=== PATIENT | male | born 1960 | race Caucasian/White ===

== ENCOUNTER 2016-12-15 09:44 | Day surgery (SDC) | payer BC ==
[2016-12-14 10:14] VITALS: BMI 24.0
[~2016-12-15 09:44] MED LIST: LACTATED RINGERS 1,000 ML IV SCH; LIDOCAINE 1% 20 ML VIAL (10MG/ML) FOR IV START INTRADERMA PRN
[2016-12-15 10:40] VITALS: TEMP 97
[2016-12-15] MEDS ORDERED: PROPOFOL 10 MG/ML 20 ML VIAL IV ONE (12:23)
--- NOTE | 2016-12-15 12:55 | P.PCN ---
Date of Procedure: 12/15/16 Preoperative Diagnosis: Postoperative Diagnosis: Procedure(s) Performed: Procedure: Colonoscopy and polypectomy. Preoperative diagnosis: Screening for neoplasia. Postoperative diagnosis: Small/diminutive polyp in the distal sigmoid snared but no large polyps or cancer. Preparation: HalfLytely prep. Sedation: Was provided by anesthesia. Brief clinical history: The patient is a 56-year-old male who is scheduled for this evaluation for screening for neoplasia age being his risk factor. He has no abdominal complaints, bleeding or anemia. No family history of colon cancer. This would be his first colonoscopy. Procedure: With the patient on his left lateral decubitus position and after informed consent and adequate sedation, the perianal area was inspected and it did not show any fissures or fistulas. There were no masses felt on digital rectal examination. The Olympus CFQ 160L video colonoscope was then inserted in the rectum in the usual fashion and advanced to the cecum. The mucosa appeared healthy. There was a small/diminutive polyp in the distal sigmoid which I snared and retrieved by suction, but there were no large polyps or cancer. No obvious diverticular disease or other pathology. I retroflexed the endoscope in the rectum before the endoscope was withdrawn. The patient tolerated the procedure well. Plan: The patient was reassured. He will follow up with you as planned, and I recommended a repeat exam in 5 years. Implants: Indications for Procedure: Operative Findings: Description of Procedure:
[2016-12-15 13:03] VITALS: BP 129/70; PULSE 57; RESP 18
== END 2016-12-15 13:26 | disposition home or self-care (01) ==
LOC: ORWHC2ENDO 09:44
DX: Z12.11 Encounter for screening for malignant neoplasm of colon (principal); K63.5 Polyp of colon; F17.200 Nicotine dependence, unspecified, uncomplicated
CPT/HCPCS: 88305; 45385; J2704

== ENCOUNTER 2021-10-15 18:43 | Emergency (ER) | payer BC, OTHER ==
[2021-10-15 18:48] VITALS: TEMP 98.4
[2021-10-15 20:48] VITALS: RESP 18
[2021-10-15] MEDS ORDERED: PROPARACAINE 0.5% OPHTH DROPS 15 ML BTL RIGHT EYE STA (20:52)
[2021-10-15] MEDS ORDERED: FLUORESCEIN STRIPS 1 MG STRIP BOTH EYES ONE (20:52)
[2021-10-15] MEDS ORDERED: MOXIFLOXACIN HCL 0.5% DROPS 3 ML BTL RIGHT EYE ONE (21:16)
[2021-10-15] MEDS ORDERED: lisinopriL 5 MG TAB PO STA (21:18)
--- NOTE | 2021-10-15 21:22 | ED ---
Eye Problem HPI - General Chief complaint: Eye Problems Stated complaint: poss foreign body rt eye, elevated BP Time Seen by Provider: 10/15/21 20:51 Source: patient Mode of arrival: ambulatory Limitations: no limitations - History of Present Illness Initial comments: This is a pleasant 61-year-old male with a history of hypertension. Patient presents to the emergency department complaining of right I discharge and irritation. Patient states he had problems with the eye about 2 weeks ago and it seemed to clear up. However about 48 hours ago he started getting discharged from the right eye again. States he has some discomfort and foreign body sensation when he has his eye closed. Patient has no other symptomology. He was seen at [facility] and [facility] and sent here for evaluation. Patient has a known history of hypertension which she is not treating. No headache, no fever or chills, no sore throat or difficulty with speech, no neck pain, no chest pain or shortness of breath, no abdominal pain, no nausea or vomiting, no changes in urination or bowel movements, no numbness or tingling, no extremity pain, no skin rashes or lesions. MD chief complaint: eye redness - Related Data Previous Rx's Medication Instructions Recorded lisinopriL [Zestril] 5 mg PO DAILY #30 tab 10/15/21 Allergies Allergy/AdvReac Type Severity Reaction Status Date / Time No Known Allergies Allergy Verified 12/15/16 10:33 Review of Systems ROS Statement: Those systems with pertinent positive or pertinent negative responses have been documented in the HPI. ROS Other: All systems not noted in ROS Statement are negative. Past Medical History Past Medical History: Hypertension, Osteoarthritis (OA) History of Any Multi-Drug Resistant Organisms: None Reported Past Surgical History: Hernia Repair, Tonsillectomy Past Anesthesia/Blood Transfusion Reactions: No Reported Reaction Past Psychological History: No Psychological Hx Reported Smoking Status: Current every day smoker Past Alcohol Use History: None Reported Past Drug Use History: None Reported - Past Family History Mother Family Medical History: No Reported History General Exam - General Exam Comments Initial Comments: Patient found be hypertensive. Does not appear to be in any distress. Limitations: no limitations General appearance: alert, in no apparent distress Head exam: Present: atraumatic, normocephalic, normal inspection Eye exam: Present: PERRL, EOMI, conjunctival injection (Right eye), other (Evidence of chemosis with conjunctival injection involving the right eye. No definitive purulent drainage.). Absent: normal appearance (Patient does have what appears to be a superficial corneal ulceration developing to the inferior aspect of the cornea.), scleral icterus, periorbital swelling Pupils: Present: normal accommodation, other (No foreign body noted on slit lamp examination with staining. Eyelids were everted.) ENT exam: Present: normal exam, mucous membranes moist Neck exam: Present: normal inspection. Absent: tenderness, meningismus, lymphadenopathy Respiratory exam: Present: normal lung sounds bilaterally. Absent: respiratory distress, wheezes, rales, rhonchi, stridor Cardiovascular Exam: Present: regular rate, normal rhythm, normal heart sounds. Absent: systolic murmur, diastolic murmur, rubs, gallop, clicks GI/Abdominal exam: Present: soft, normal bowel sounds. Absent: distended, tenderness, guarding, rebound, rigid Extremities exam: Present: normal inspection, full ROM, normal capillary refill. Absent: tenderness, pedal edema, joint swelling, calf tenderness Back exam: Present: normal inspection Neurological exam: Present: alert, oriented X3, CN II-XII intact Psychiatric exam: Present: normal affect, normal mood Skin exam: Present: warm, dry, intact, normal color. Absent: rash Course Vital Signs 10/15/21 10/15/21 18:45 20:47 Temperature 98.4 F Pulse Rate 78 76 Respiratory 20 18 Rate Blood Pressure 196/88 196/104 O2 Sat by Pulse 96 98 Oximetry Medical Decision Making - Medical Decision Making We will consult ophthalmology. I'm going to give the patient a prescription for lisinopril as he has known hypertension that he is trying to treat with herbal remedies. Patient will need to follow-up with her primary care physician regarding this. Note that he is asymptomatic regarding this. No chest pain. No problems with urination. No headache. No neurologic impairment. Case discussed with on-call ophthalmology who will come to the ER to evaluate the patient. Patient started on Vigamox The case was discussed in detail with ED attending physician. Presentation, findings, treatment plan discussed in detail. Patient was seen and evaluated by on-call ophthalmology, Dr. Givens who wants to see the patient again tomorrow morning. Frequent installation of athletic eyedrops as directed and the patient discharge instructions. Disposition Clinical Impression: Conjunctivitis of right eye, Uncontrolled hypertension, Corneal ulcer of right eye Disposition: HOME SELF-CARE Condition: Good Instructions (If sedation given, give patient instructions): Corneal Ulcer (ED), Hypertension (ED), How to Stop Smoking (ED) Additional Instructions: Put in the eye antibiotic drops 1 drop every 15 minutes 4, then every 30 minutes for the next 6 hours. Then every hour until reassessment tomorrow morning. Make sure you go to the pharmacy [facility] as planned tomorrow morning without fail. Is patient prescribed a controlled substance at d/c from ED?: No Referrals: Hansel Givens MD [STAFF PHYSICIAN] - 10/16/21 9:00 am Time of Disposition: 22:07
[2021-10-15] MEDS ORDERED: ARTIFICIAL TEARS-HYPROMELLOSE DROPS 15 ML BTL RIGHT EYE STA (21:26)
[2021-10-15 22:35] VITALS: BP 160/90; PULSE 82
--- NOTE | 2021-10-15 22:35 | P.CON ---
Consult Note - . Consult date: 10/15/21 Assessment/Plan:: 61 y/o male with 2 week HX of eye pain on the right. 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 However, the eye has become more irritated and has a mildly purulent discharge. Acuity per nursing Ext: marked entropion noted on right, unremarkable on left Conj: 3+ injection and chemosis, right, unremarkable OS Cornea: Grade1 clarity on right with 1.5 mm cystic lesion inferior limbus, without breakdown or infiltrate, clear left AC: rare cell, 2+ flare, right, normal OS Iris: mild miosis, right, none left A: probable simple conjunctivitis aggravated with entropion, and iritis P: will treat as potential ulceration and aggressively use topical moxifloxacin q x 6 then reduce to q 1. Will see in AM at office. Use tears to offset the discomfort. Avoid squeezing the eyelids tightly together.
== END 2021-10-15 22:35 | disposition home or self-care (01) ==
LOC: EC 18:43
DX: H16.001 Unspecified corneal ulcer, right eye (principal); H10.9 Unspecified conjunctivitis; I10 Essential (primary) hypertension; F17.200 Nicotine dependence, unspecified, uncomplicated
CPT/HCPCS: 99283

== ENCOUNTER 2021-11-03 07:28 | Day surgery (SDC) | payer OTHER ==
[2021-11-02 08:58] VITALS: BMI 23.3
[~2021-11-03 07:28] MED LIST changes: +LIDOCAINE 1% (10MG/ML) FOR IV START INTRADERMA PRN; -LIDOCAINE 1% 20 ML VIAL (10MG/ML) FOR IV START INTRADERMA PRN; +MOXIFLOXACIN HCL 0.5% DROPS 3 ML BTL OP PRN; +TETRACAINE 0.5% OPHTH (PF) DROPS 4 ML BTL OP PRN; +TIMOLOL 0.5% OPHTH DROPS 5 ML BTL OP PRN
[2021-11-03] MEDS: CYCLOPENTOLATE 1% OPHTH SOLN 2 ML BTL OP PRN ×3 (08:03→08:15)
[2021-11-03] MEDS: PHENYLEPHRINE 2.5% OPHTH DRP 2ML OP PRN ×3 (08:06→08:18)
[2021-11-03 08:10] VITALS: TEMP 97.5
[2021-11-03] MEDS ORDERED: HYALURONATE SODIUM INTRAOCULAR 1 EACH SYRINGE (12MG/ML) INTRAOCULA ONE (08:40)
[2021-11-03] MEDS ORDERED: BALANCED SALT IRRIG SOLN COMB2 15 ML IRRIG.SOLN INTRAOCULA ONE ×2 (08:41→09:22)
[2021-11-03] MEDS ORDERED: LIDOCAINE 1% (PF) 10MG/ML VIAL MISCELLANE ONE ×2 (08:41→09:22)
[2021-11-03] MEDS ORDERED: MOXIFLOXACIN HCL 0.5% DROPS 3 ML BTL RIGHT EYE ONE ×2 (08:42→09:23)
[2021-11-03] MEDS ORDERED: TIMOLOL 0.5% OPHTH SOLN (PF) 0.2 ML DROPERETTE RIGHT EYE ONE ×3 (08:42→09:44)
[2021-11-03] MEDS ORDERED: EPINEPHrine (PF) 0.3 ML in BALANCED SALT IRRIG SOLN COMB2 500 ML IRRIGATION ONE ×4 (08:43)
[2021-11-03] MEDS ORDERED: DUOVISC KIT (GREEN BOX) INTRAOCULA ONE ×2 (09:01→09:23)
[2021-11-03] MEDS ORDERED: MIDAZOLAM 2 MG/2 ML VIAL ONE (09:02)
[2021-11-03] MEDS ORDERED: fentaNYL (PF) 50 MCG/ML 2 ML AMP ONE (09:02)
--- NOTE | 2021-11-03 09:47 | P.OP ---
Date of Procedure: 11/03/21 Preoperative Diagnosis: NS NAG POAG posterior synechiae Postoperative Diagnosis: same Procedure(s) Performed: PIOL, goniotomy & synechiolysis Implants: MX60E 28.50 Anesthesia: MAC Surgeon: Hansel Givens Pathology: none sent Condition: stable Disposition: same day Indications for Procedure: uncontrolled glaucoma, narrow anterior chamber angle, blurry vision Operative Findings: no complications
[2021-11-03 09:57] VITALS: RESP 16
[2021-11-03 10:29] VITALS: BP 146/86; PULSE 59
--- NOTE | 2021-11-03 20:03 | OP ---
OPERATIVE REPORT DATE OF SURGERY: 11/03/2021. PROCEDURE: Phacoemulsification of cataract and intraocular lens implant of the right eye with goniotomy of the right eye and release of posterior synechiae of the right eye. PREOPERATIVE DIAGNOSES: 1. Nuclear sclerosis. 2. Narrow-angle glaucoma. 3. Primary open-angle glaucoma, mild stage. 4. Posterior synechiae of the right eye. POSTOPERATIVE DIAGNOSES: 1. Nuclear sclerosis. 2. Narrow-angle glaucoma. 3. Primary open-angle glaucoma, mild stage. 4. Posterior synechiae of the right eye. SURGEON: Dr. Hansel Givens. ANESTHESIA: Topical. ESTIMATED BLOOD LOSS: Less than 5 mL. SPECIMEN TAKEN: None. NARRATIVE: After obtaining the appropriate consent, the patient was brought to the operating room. There he was placed under cardiac monitoring, prepped and draped in the usual sterile manner. He was approached from his right temporal side, and at the 11 o'clock position an MVR blade was used to create a paracentesis port. Through this opening 1% Xylocaine MPF with 1:1000 epinephrine MPF and balanced salt solution in a ratio of 1:2:1 was instilled into the anterior chamber. This was then followed by stabilization of the anterior chamber with Viscoat. At the 9 o'clock position a 2.5 mm keratome was used to create a self-sealing corneal flap incision. The patient was then asked to rotate his head approximately 45 degrees to his left and maintain a gaze in that general direction. A gonio prism was placed on the patient's eye and a [place] Dual Blade goniotomy knife was advanced across the anterior chamber. Using an inside-out technique, approximately 4 hours of trabecular meshwork was removed from the nasal side of the patient's eye. The patient was then returned to the normal supine position and there was a little release of the pupil from the anterior lens, and a Cyclodialysis Spatula was then placed in the anterior chamber and released all of the posterior synechiae, which was accounting for approximately 90% of the iris to lens scar tissue. The pupil did not dilate appreciably, and therefore a Malyugin Ring 6.25 in size was then placed on the patient's iris to gain adequate access to the lens. Once the iris was stabilized, a cystotome was advanced across the anterior chamber and into the lens to begin a continuous tear capsulorrhexis, which was then completed using the Utrata forceps. Hydrodissection and hydrodelineation of the lens were accomplished with balanced salt solution. Phacoemulsification of the lens utilizing phaco chop was accomplished in 13.96 seconds at 17% power. Additional medication mix was then instilled into the anterior chamber. This was followed by removal of the remaining cortical material under irrigation and aspiration as well as careful polishing of the posterior capsule in capsule vacuum mode. Provisc was then used to stabilize the capsular bag, and a Bausch and Lomb MX 60E 28.5 diopter posterior chamber intraocular lens was then placed in the capsular bag without difficulty. Confirmation that the lens haptics were within the bag was confirmed and the Malyugin pupil expansion ring was then removed from the anterior chamber. The remaining viscoelastic was then removed from both the anterior chamber as well as behind the posterior intraocular lens. The eye was then brought to slightly above normal intraocular pressure with balanced salt solution through the paracentesis after hydrating the temporal incision with balanced salt solution. He then received two drops of 0.5% Timolol followed by moxifloxacin, was then lightly patched and shielded in the usual manner. There were no complications from the procedure. He tolerated the procedure well and was returned to Outpatient Recovery in good condition. JENNA / IJN: [id number] / RAFITA
== END 2021-11-03 10:47 | disposition home or self-care (01) ==
LOC: OR 07:28
PROVIDERS: ATTEND Ophthalmology
DX: H25.11 Age-related nuclear cataract, right eye (principal); H40.2 Primary angle-closure glaucoma; H21.541 Posterior synechiae (iris), right eye; I10 Essential (primary) hypertension; F17.210 Nicotine dependence, cigarettes, uncomplicated; Z79.899 Other long term (current) drug therapy; Z98.890 Other specified postprocedural states
CPT/HCPCS: 66982; 65820; C1780; J2250; J0171; J3010; J2001

== ENCOUNTER 2021-12-01 06:19 | Day surgery (SDC) | payer OTHER ==
[2021-11-30 13:03] VITALS: BMI 23.1
[~2021-12-01 06:19] MED LIST changes: +CYCLOPENTOLATE 1% OPHTH SOLN 2 ML BTL OP PRN; -LACTATED RINGERS 1,000 ML IV SCH; -LIDOCAINE 1% (10MG/ML) FOR IV START INTRADERMA PRN; +PHENYLEPHRINE 2.5% OPHTH DRP 2ML OP PRN
[2021-12-01] MEDS ORDERED: LACTATED RINGERS 1,000 ML IV SCH (06:52)
[2021-12-01] MEDS ORDERED: LIDOCAINE 1% (10MG/ML) FOR IV START INTRADERMA PRN (06:52)
[2021-12-01] MEDS ORDERED: LIDOCAINE 1% (10MG/ML) FOR IV START INTRADERMA ONE (07:13)
[2021-12-01] MEDS ORDERED: LACTATED RINGERS 1,000 ML IV ONE (07:13)
[2021-12-01] MEDS ORDERED: LABETALOL 5 MG/ML VIAL MDV IVP ONE (07:23)
[2021-12-01 07:40] VITALS: TEMP 97.4
[2021-12-01] MEDS ORDERED: MIDAZOLAM 2 MG/2 ML VIAL ONE (07:47)
[2021-12-01] MEDS ORDERED: fentaNYL (PF) 50 MCG/ML 2 ML AMP ONE (07:47)
[2021-12-01] MEDS ORDERED: EPINEPHrine (PF) 0.3 ML in BALANCED SALT IRRIG SOLN COMB2 500 ML IRRIGATION ONE (08:02)
[2021-12-01] MEDS ORDERED: DUOVISC KIT (GREEN BOX) INTRAOCULA ONE (08:03)
[2021-12-01] MEDS ORDERED: BALANCED SALT IRRIG SOLN COMB2 15 ML IRRIG.SOLN INTRAOCULA ONE (08:03)
[2021-12-01] MEDS ORDERED: TRYPAN BLUE 0.06% SYRINGE 0.5 ML SYRINGE MISCELLANE ONE (08:04)
[2021-12-01] MEDS ORDERED: LIDOCAINE 1% (PF) 10MG/ML VIAL MISCELLANE ONE (08:04)
--- NOTE | 2021-12-01 08:28 | P.OP ---
Date of Procedure: 12/01/21 Preoperative Diagnosis: NS & POAG moderate Postoperative Diagnosis: same Procedure(s) Performed: PIOL< OS Implants: MX60E 28.00 Anesthesia: MAC Surgeon: Hansel Givens Pathology: none sent Condition: stable Disposition: same day Indications for Procedure: blurry visin and poor glaucoma control Operative Findings: no complications
[2021-12-01 08:33] VITALS: PULSE 60; RESP 16
[2021-12-01 08:46] VITALS: BP 169/85
--- NOTE | 2021-12-02 11:09 | OP ---
OPERATIVE REPORT DATE OF SURGERY: December 01, 2021. PROCEDURES: Phacoemulsification of cataract and intraocular lens implant of the left eye with goniotomy. PREOPERATIVE DIAGNOSES: Nuclear sclerosis and primary open-angle glaucoma, moderate. POSTOPERATIVE DIAGNOSES: Nuclear sclerosis and primary open-angle glaucoma, moderate. SURGEON: Dr. Hansel Givens. ANESTHESIA: Topical. ESTIMATED BLOOD LOSS: Less than 5 mL. SPECIMEN TAKEN: None. NARRATIVE: After obtaining the appropriate consent, the patient was brought to the operating room. There he was placed under cardiac monitoring, prepped and draped in the usual sterile manner. He was approached from his left temporal side. At the 5 o'clock position an MVR blade was used to create a paracentesis port. Through this opening 1% Xylocaine MPF 50:50 mix with balanced salt solution was injected into the anterior chamber. This was followed by Trypan blue which was left in place for 1 minute. This was irrigated away with balanced salt solution and the anterior chamber was then stabilized with Viscoat. At the 3 o'clock position, a 2.5 mm keratome was used to create a self-sealing corneal flap incision. The patient was then asked to rotate his head approximately 45 degrees to his right, maintain a gaze in that general direction. A gonio prism was placed on the patient's eye and using a [employer] dual blade goniotomy knife using a deborah and meet method, the nasal trabecular meshwork for approximately 5 clock hours was removed on the nasal side of the patient's eye. He was then returned to the normal supine position. Again through the temporal incision, a cystotome was introduced to begin a continuous tear capsulorrhexis which was then completed using the Utrata forceps. Hydrodissection and hydrodelineation of the lens was accomplished with balanced salt solution. Phacoemulsification of the lens utilizing phaco chop was accomplished in 9.78 seconds at 23% power. Additional Xylocaine MPF was instilled into the eye. This was followed by removal of the remaining cortical material within the capsular bag along with careful polishing of the posterior capsule in the capsule vacuum mode. Provisc was then used to stabilize the capsular bag and a Bausch and Lomb MX 60 E 28.0 diopter posterior chamber intraocular lens was then inserted into the capsular bag without difficulty. The remaining viscoelastic was removed from in and around the intraocular lens as well as the anterior chamber. The eye was then brought to normal intraocular pressure through the paracentesis port and the wounds were confirmed watertight. He then received 2 drops of 0.5% timolol followed by 2 drops of moxifloxacin. He was then lightly patched and shielded in the usual manner. There were no complications from the procedure. He tolerated the procedure well and was returned to outpatient recovery in good condition. MMODL / IJN: [id number] /
== END 2021-12-01 09:05 | disposition home or self-care (01) ==
LOC: OR 06:19
PROVIDERS: ATTEND Ophthalmology
DX: H25.12 Age-related nuclear cataract, left eye (principal); H40.1132 Primary open-angle glaucoma, bilateral, moderate stage; H10.33 Unspecified acute conjunctivitis, bilateral; H43.813 Vitreous degeneration, bilateral; H02.002 Unspecified entropion of right lower eyelid; H02.005 Unspecified entropion of left lower eyelid; H52.03 Hypermetropia, bilateral; H52.4 Presbyopia; Z96.1 Presence of intraocular lens; Z98.41 Cataract extraction status, right eye; Z79.899 Other long term (current) drug therapy; I10 Essential (primary) hypertension; I77.6 Arteritis, unspecified; Z98.890 Other specified postprocedural states
CPT/HCPCS: 66984; 65820; C1780; J2250; J0171; J3010; J2001

== ENCOUNTER 2022-10-20 05:23 | Inpatient (IN) | payer OTHER ==
--- NOTE | 2022-10-20 06:14 | XR ---
EXAMINATION TYPE: XR chest 2V DATE OF EXAM: 10/20/2022 COMPARISON: NONE HISTORY: Shortness of breath TECHNIQUE: Frontal and lateral views of the chest are obtained. FINDINGS: There is masslike consolidation involving the inferior lateral left upper lobe. No pleura l effusion or pneumothorax seen bilaterally The cardiac silhouette size is mildly enlarged. The oss eous structures are intact. IMPRESSION: Mild cardiomegaly with peripheral left upper lobe masslike consolidation. Correlate for pneumonia. Follow-up advised to rule out underlying mass or neoplasm.
[2022-10-20 06:24] LABS: HCT 42.7 % (39.0-53.0); MCH 29.1 pg (25.0-35.0); MCHC 32.9 g/dL (31.0-37.0); MCV 88.4 fL (80.0-100.0); Mean Platelet Volume 8.3; Platelet Count 230 k/uL (150-450); RBC 4.82 m/uL (4.30-5.90); RDW 13.5 % (11.5-15.5); WBC 5.2 k/uL (3.8-10.6)
--- NOTE | 2022-10-20 06:24 | ED ---
General Adult HPI - General Source: patient, RN notes reviewed, old records reviewed Mode of arrival: ambulatory <Armen Vivar - Last Filed: 10/20/22 06:57> <Mk Jean - Last Filed: 10/20/22 07:54> - General Chief complaint: Shortness of Breath Stated complaint: Shortness of Breath Time Seen by Provider: 10/20/22 05:29 - History of Present Illness Initial comments: 62-year-old male presenting for left lateral chest pain worse with deep inspiration. Symptoms began within the past 24 hours. He has mild associated dyspnea. No central chest pain. Patient is a current smoker. He denies fever. Denies cough. (Armen Vivar) - Related Data Home Medications Medication Instructions Recorded Confirmed lisinopriL [Zestril] 5 mg PO DAILY 11/30/21 11/30/21 Allergies Allergy/AdvReac Type Severity Reaction Status Date / Time No Known Allergies Allergy Verified 11/30/21 12:58 Review of Systems ROS Other: All systems not noted in ROS Statement are negative. <Armen Vivar - Last Filed: 10/20/22 06:57> ROS Other: All systems not noted in ROS Statement are negative. <Mk Jean - Last Filed: 10/20/22 07:54> ROS Statement: Those systems with pertinent positive or pertinent negative responses have been documented in the HPI. Past Medical History Past Medical History: Hypertension, Osteoarthritis (OA) History of Any Multi-Drug Resistant Organisms: None Reported Past Surgical History: Hernia Repair, Tonsillectomy Additional Past Surgical History / Comment(s): COLONOSCOPY , rt cataract 11/03/21 Past Anesthesia/Blood Transfusion Reactions: No Reported Reaction Past Psychological History: No Psychological Hx Reported Smoking Status: Current every day smoker Past Alcohol Use History: None Reported Past Drug Use History: None Reported - Past Family History Mother Family Medical History: No Reported History <Armen Vivar - Last Filed: 10/20/22 06:57> General Exam General appearance: alert, in no apparent distress Head exam: Present: atraumatic, normocephalic Eye exam: Present: normal appearance, PERRL ENT exam: Present: normal exam Neck exam: Present: normal inspection. Absent: tenderness, meningismus Respiratory exam: Present: decreased breath sounds. Absent: respiratory distress, chest wall tenderness Cardiovascular Exam: Present: normal rhythm, bradycardia GI/Abdominal exam: Present: soft. Absent: distended, tenderness, guarding Extremities exam: Present: normal inspection, normal capillary refill. Absent: calf tenderness Neurological exam: Present: alert, oriented X3, CN II-XII intact. Absent: motor sensory deficit Psychiatric exam: Present: normal affect, normal mood Skin exam: Present: warm, dry, intact. Absent: cyanosis, diaphoretic <Armen Vivar - Last Filed: 10/20/22 06:57> Course <Armen Vivar - Last Filed: 10/20/22 06:57> Vital Signs 10/20/22 10/20/22 05:27 05:51 Temperature 97.6 F Pulse Rate 46 L 87 Respiratory 18 22 Rate Blood Pressure 120/79 O2 Sat by Pulse 98 98 Oximetry - Reevaluation(s) Reevaluation #1: 10/20/22 0700 Patient care signed out to Dr. Jean at shift change awaiting laboratory testing and reevaluation (Armen Vivar) EKG Findings - EKG Comments: EKG Findings:: EKG: Sinus rhythm with frequent PVC in a bigeminy right bundle- branch block ventricular rate of 86 with bigeminy WA interval 194, QRS duration 157, QTC 405 I do not see any ST segment elevation. <Armen Vivar - Last Filed: 10/20/22 06:57> Medical Decision Making - Lab Data Result diagrams: 10/20/22 05:55 10/20/22 05:55 <Armen Vivar - Last Filed: 10/20/22 06:57> - Lab Data Result diagrams: 10/20/22 05:55 10/20/22 05:55 <Mk Jean - Last Filed: 10/20/22 07:54> - Medical Decision Making Was pt. sent in by a medical professional or institution (, PA, MASK DESIGNER, urgent care, hospital, or alf...) When possible be specific @ -No Did you speak to anyone other than the patient for history (EMS, parent, family, police, friend...)? What history was obtained from this source @ -No Did you review nursing and triage notes (agree or disagree)? Why? @ -I reviewed and agree with nursing and triage notes Were old charts reviewed (outside hosp., previous admission, EMS record, old EKG, old radiological studies, urgent care reports/EKG's, alf records)? Report findings @ -No old charts were reviewed Differential Diagnosis (chest pain, altered mental status, abdominal pain women, abdominal pain men, vaginal bleeding, weakness, fever, dyspnea, syncope, headache, dizziness, GI bleed, back pain, seizure, CVA, palpatations, mental he alth, musculoskeletal)? @ -Differential Chest Pain: Stable Angina, Unstable Angina, STEMI, NSTEMI Aortic Dissection, Pneumothorax, Musculoskeletal, Esophageal Spasm GERD, Cholecystitis, Pancreatitis, Zoster, this is not meant to be an all-inclusive list. EKG interpreted by me (3pts min.). @ -As above X-rays interpreted by me (1pt min.). @ -Left upper lobe pneumonia versus mass CT interpreted by me (1pt min.). @ -None done U/S interpreted by me (1pt. min.). @ -None done What testing was considered but not performed or refused? (CT, X-rays, U/S, labs)? Why? @ -[Labs pending What meds were considered but not given or refused? Why? @ -None Did you discuss the management of the patient with other professionals (professionals i.e. , PA, MASK DESIGNER, lab, RT, psych nurse, social problems specialist, capacity analyst, teacher, penal officer, rn case management)? Give summary @ -No Was smoking cessation discussed for >3mins.? @ -No Was critical care preformed (if so, how long)? @ -No Were there social determinants of health that impacted care today? How? (Homelessness, low income, unemployed, alcoholism, drug addiction, trans portation, low edu. Level, literacy, decrease access to med. care, senior care, rehab)? @ -No Was there de-escalation of care discussed even if they declined (Discuss DNR or withdrawal of care, Hospice)? DNR status @ -No What co-morbidities impacted this encounter? (DM, HTN, Smoking, COPD, CAD, Cancer, CVA, ARF, Chemo, Hep., AIDS, mental health diagnosis, sleep apnea, morbid obesity)? @ -None Was patient admitted / discharged? Hospital course, mention meds given and route, prescriptions, significant lab abnormalities, going to OR and other pertinent info. @ -62-year-old male with left lateral chest pain, pleuritic in nature. Workup pending and patient care signed out at shift change. (Armen Vivar) Patient Out to Me by Previous Shift Physician, Dr. Vivar. Briefly, Patient 61-year-old Presents to the Emergency Department Pleuritic Chest Pain. Did Have an Incidental Finding of What Appears to Be a Mass in His Left Upper Lung [place]. Lab evaluation was reviewed. He had elevated d-dimer 1.39. Pending troponin levels. Pending CT angiography of the chest. At 7:42 AM patient had a short unsustained bout of V. tach. Patient elevated troponin of 0.050. CT angiography was obtained showing no evidence of pulmonary embolism. There was however evidence suspicious for lung cancer. There is a 3 x 4 x 2.4 cm mass in the left upper lung field. There also does appear to be lymphadenopathy. Patient is reevaluated at the bedside at 7:52 AM. He was question of a sensation of palpitations while here in emergency department at around 742 L states that he did not noticed anything different. Recommended the patient to be admitted for further care. Patient is agreeable. Patient started amiodarone. Will be admitted with consultation to cardiology and pulmonology. (Mk Jean) - Lab Data Lab Results 10/20/22 10/20/22 10/20/22 Range/Units 05:55 05:55 05:55 WBC 5.2 (3.8-10.6) k/uL RBC 4.82 (4.30-5.90) m/uL Hgb 14.0 (13.0-17.5) gm/dL Hct 42.7 (39.0-53.0) % MCV 88.4 (80.0-100.0) fL MCH 29.1 (25.0-35.0) pg MCHC 32.9 (31.0-37.0) g/dL RDW 13.5 (11.5-15.5) % Plt Count 230 (150-450) k/uL MPV 8.3 Neutrophils % (Manual) 64 % Band Neuts % (Manual) 1 % Lymphocytes % (Manual) 23 % Monocytes % (Manual) 8 % Eosinophils % (Manual) 4 % Neutrophils # (Manual) 3.30 (1.3-7.7) k/uL Lymphocytes # (Manual) 1.20 (1.0-4.8) k/uL Monocytes # (Manual) 0.42 (0-1.0) k/uL Eosinophils # (Manual) 0.21 (0-0.7) k/uL Nucleated RBCs 0 (0-0) /100 WBC Manual Slide Review Performed PT 9.7 (9.0-12.0) sec INR 0.9 (<1.2) APTT 25.5 (22.0-30.0) sec D-Dimer 1.39 H (<0.60) mg/L FEU Sodium 139 (137-145) mmol/L Potassium 4.1 (3.5-5.1) mmol/L Chloride 106 (98-107) mmol/L Carbon Dioxide 26 (22-30) mmol/L Anion Gap 7 mmol/L BUN 15 (9-20) mg/dL Creatinine 0.86 (0.66-1.25) mg/dL Est GFR (CKD-EPI)AfAm >90 (>60 ml/min/1.73 sqM) Est GFR (CKD-EPI)NonAf >90 (>60 ml/min/1.73 sqM) Glucose 103 H (74-99) mg/dL Calcium 9.0 (8.4-10.2) mg/dL Total Bilirubin 0.8 (0.2-1.3) mg/dL AST 32 (17-59) U/L ALT 30 (4-49) U/L Alkaline Phosphatase 119 (38-126) U/L Troponin I (0.000-0.034) ng/mL Total Protein 6.7 (6.3-8.2) g/dL Albumin 3.7 (3.5-5.0) g/dL 10/20/22 Range/Units 05:55 WBC (3.8-10.6) k/uL RBC (4.30-5.90) m/uL Hgb (13.0-17.5) gm/dL Hct (39.0-53.0) % MCV (80.0-100.0) fL MCH (25.0-35.0) pg MCHC (31.0-37.0) g/dL RDW (11.5-15.5) % Plt Count (150-450) k/uL MPV Neutrophils % (Manual) % Band Neuts % (Manual) % Lymphocytes % (Manual) % Monocytes % (Manual) % Eosinophils % (Manual) % Neutrophils # (Manual) (1.3-7.7) k/uL Lymphocytes # (Manual) (1.0-4.8) k/uL Monocytes # (Manual) (0-1.0) k/uL Eosinophils # (Manual) (0-0.7) k/uL Nucleated RBCs (0-0) /100 WBC Manual Slide Review PT (9.0-12.0) sec INR (<1.2) APTT (22.0-30.0) sec D-Dimer (<0.60) mg/L FEU Sodium (137-145) mmol/L Potassium (3.5-5.1) mmol/L Chloride (98-107) mmol/L Carbon Dioxide (22-30) mmol/L Anion Gap mmol/L BUN (9-20) mg/dL Creatinine (0.66-1.25) mg/dL Est GFR (CKD-EPI)AfAm (>60 ml/min/1.73 sqM) Est GFR (CKD-EPI)NonAf (>60 ml/min/1.73 sqM) Glucose (74-99) mg/dL Calcium (8.4-10.2) mg/dL Total Bilirubin (0.2-1.3) mg/dL AST (17-59) U/L ALT (4-49) U/L Alkaline Phosphatase (38-126) U/L Troponin I 0.050 H* (0.000-0.034) ng/mL Total Protein (6.3-8.2) g/dL Albumin (3.5-5.0) g/dL Disposition <Armen Vivar - Last Filed: 10/20/22 06:57> Decision Time: 07:54 <Mk Jean - Last Filed: 10/20/22 07:54> Clinical Impression: NSTEMI (non-ST elevated myocardial infarction), V-tach, Lung cancer Disposition: ADMITTED IP TO THIS HOSP Condition: Serious Referrals: None,Stated [Primary Care Provider] - 1-2 days
[2022-10-20 06:32] LABS: ALT 30 U/L (4-49); AST 32 U/L (17-59); African American GFR (CKD) >90 (>60 ml/min/1.73 sqM); Albumin 3.7 g/dL (3.5-5.0); Alkaline Phosphatase 119 U/L (38-126); Anion Gap 7 mmol/L; Blood Urea Nitrogen 15 mg/dL (9-20); Carbon Dioxide 26 mmol/L (22-30); Chloride 106 mmol/L (98-107); Glucose 103 mg/dL (74-99); Non-African American GFR(CKD) >90 (>60 ml/min/1.73 sqM); Potassium 4.1 mmol/L (3.5-5.1); Sodium 139 mmol/L (137-145); Total Bilirubin 0.8 mg/dL (0.2-1.3); Total Protein 6.7 g/dL (6.3-8.2)
[2022-10-20 06:33] LABS: INR 0.9 (<1.2); Partial Thromboplastin Time 25.5 sec (22.0-30.0); Prothrombin Time 9.7 sec (9.0-12.0)
[2022-10-20 07:12] LABS: Band Neutrophils % 1 %; Eosinophils # (M) 0.21 k/uL (0-0.7); Monocytes # (M) 0.42 k/uL (0-1.0); Neutrophils % (M) 64 %; Nucleated Red Blood Cells 0 /100 WBC (0-0); Total Cells Counted 100
--- NOTE | 2022-10-20 07:37 | CT ---
CT CHEST FOR PULMONARY EMBOLISM. EXAMINATION TYPE: CT angio chest DATE OF EXAM: 10/20/2022 INDICATION: SOB, elevated d dimer CT DLP: 353 mGycm, Automated exposure control for dose reduction was used. CONTRAST: Patient injected with 100 mL of Isovue 370. COMPARISON: None TECHNIQUE: CT of the chest is performed on a spiral scan at 2 mm thick sections. Study is performed with intravenous contrast timed for evaluation for pulmonary embolism. This will limit additional po rtions of the evaluation. 3-D MIP images reconstructed by the technologist are reviewed on the compu ter in the coronal and sagittal planes. FINDINGS: No persistent filling defects are evident to suggest an acute pulmonary embolism. There is some reflu x into the proximal inferior vena cava. There may be some Right heart strain. Enlarged aortopulmonic window lymphadenopathy is present measuring 1.6 cm. Some pretracheal lymphaden opathy may be present. There is a large subcarinal measuring 1.4 cm. The ascending aorta diameter at the level of the main pulmonary artery is 3.9 cm. The main pulmonary artery diameter at the bifurca tion is 3.2 cm. There is 3.4 x 2.4 cm mass in the lateral left upper lung field. Series 401 image 56. There is some pneumonitis changes in the right middle lobe. Series [address] section through the upper abdomen are unremarkable. IMPRESSIONS: 1. No acute pulmonary embolism. 2. Left peripheral lung mass. Workup for neoplasm is recommended. 3. Enlarged mediastinal lymph nodes suspicious for metastatic disease.
[2022-10-20] MEDS ORDERED: HEPARIN SODIUM 1,000 UN/ML (10ML VL) IV ONE (07:50)
[2022-10-20] MEDS ORDERED: HEPARIN SODIUM 1,000 UN/ML (10ML VL) IV PRN (07:50)
[2022-10-20] MEDS ORDERED: NALOXONE 0.4 MG/ML 1 ML VIAL IV PRN (07:54)
[2022-10-20] MEDS ORDERED: DEXTROSE 5% IN WATER 100 ML with AMIODARONE 150 MG IV ONE (08:00)
[2022-10-20] MEDS ORDERED: AMIODARONE 360 MG in DEXTROSE 5% IN WATER 200 ML IV ONE ×2 (08:10)
[2022-10-20] MEDS: SODIUM CHLORIDE 0.9% 1,000 ML IV SCH (08:39)
[2022-10-20] MEDS: HEPARIN SOD,PORK IN 0.45% NACL 25,000 UNIT in 0.45% NACL 1 250ML.BAG IV SCH (08:39)
[2022-10-20] MEDS ORDERED: ACETAMINOPHEN TAB 325 MG TAB PO PRN (09:20)
--- NOTE | 2022-10-20 09:23 | P.HPIM ---
History of Present Illness this is a pleasant 62 yo M with past medical history of hypertension , and osteoarthritis no on home medication Presents because of chest pain in the left chest increase with deep breathing, described as sharp pain about 3-5/10 in severity since yesterday, associated with some cough and white phlegm and shortness of breath because of the pain. He denies any GI or urinary symptoms. No headache dizziness or weakness. Patient is a smoker smokes a half pack to 1 pack per day, smokes more when he is at home and not working. No alcohol or illicit drugs Vitals stable Has unremarkable CBC, INR, BMP and liver enzymes. Bone and mildly elevated 0.05 D-dimer is mildly elevated at 1.39 and had CTA of the chest showing, no acute pulmonary embolism, he has left peripheral lung mass with enlarged mediastinal lymph nodes suspicious for metastatic disease EKG showing normal sinus rhythm at [address]-T changes EKG showing PVCs with normal sinus rhythm at 79/m with downsloping ST segment in V4-V5-V6, however patient also has curtailed LVH. And QTC is 457. Review of Systems Review of systems CONSTITUTIONAL: No fever, no malaise, no fatigue. HEENT: No recent visual problems or hearing problems. Denied any sore throat. CARDIOVASCULAR: No orthopnea, PND, no palpitations, no syncope. PULMONARY: No upper respiratory symptoms, no hemoptysis. GASTROINTESTINAL: No diarrhea, no nausea, no vomiting, no abdominal pain. Normoactive bowel sounds. NEUROLOGICAL: No headaches, no weakness, no numbness. HEMATOLOGICAL: Denies any bleeding or petechiae. GENITOURINARY: Denies any burning micturition, frequency, or urgency. MUSCULOSKELETAL/RHEUMATOLOGICAL: Denies any joint pain, swelling, or any muscle pain. ENDOCRINE: Denies any polyuria or polydipsia. Past Medical History Past Medical History: Hypertension, Osteoarthritis (OA) History of Any Multi-Drug Resistant Organisms: None Reported Past Surgical History: Hernia Repair, Tonsillectomy Additional Past Surgical History / Comment(s): COLONOSCOPY , rt cataract 11/03/21 Past Anesthesia/Blood Transfusion Reactions: No Reported Reaction Past Psychological History: No Psychological Hx Reported Smoking Status: Current every day smoker Past Alcohol Use History: None Reported Past Drug Use History: None Reported - Past Family History Mother Family Medical History: No Reported History Medications and Allergies Home Medications Medication Instructions Recorded Confirmed Type No Known Home Medications 10/20/22 10/20/22 History Allergies Allergy/AdvReac Type Severity Reaction Status Date / Time No Known Allergies Allergy Verified 10/20/22 08:16 Physical Exam Vitals: Vital Signs Temp Pulse Resp BP Pulse Ox 10/20/22 08:42 98.4 F 70 18 152/65 96 10/20/22 08:05 82 18 152/95 95 10/20/22 05:51 87 22 98 10/20/22 05:27 97.6 F 46 L 18 120/79 98 Intake and Output 10/19/22 10/20/22 10/20/22 22:59 06:59 14:59 Other: Weight 88.451 kg GENERAL: The patient is alert and oriented x3, not in any acute distress. Well developed, well nourished. HEENT: Pupils are round and equally reacting to light. EOMI. No scleral icterus. No conjunctival pallor. Normocephalic, atraumatic. No pharyngeal erythema. No thyromegaly. CARDIOVASCULAR: S1 and S2 present. No murmurs, rubs, or gallops. PULMONARY: Chest is clear to auscultation, no wheezing or crackles. ABDOMEN: Soft, nontender, nondistended, normoactive bowel sounds. No palpable organomegaly. MUSCULOSKELETAL: No joint swelling or deformity. EXTREMITIES: No cyanosis, clubbing, or pedal edema. NEUROLOGICAL: Gross neurological examination did not reveal any focal deficits. SKIN: No rashes. no petechiae. Results CBC & Chem 7: 10/20/22 05:55 10/20/22 05:55 Labs: Abnormal Lab Results - Last 24 Hours (Table) 10/20/22 10/20/22 10/20/22 Range/Units 05:55 05:55 05:55 D-Dimer 1.39 H (<0.60) mg/L FEU Glucose 103 H (74-99) mg/dL Troponin I 0.050 H* (0.000-0.034) ng/mL Assessment and Plan Assessment: left peripheral lung mass with enlarged mediastinal lymph nodes suspicious for metastatic disease, new diagnosis Mildly elevated troponin, rule out cardiac causes History of Osteoarthritis History of hypertension Plan: Continue with heparin drip which was started in the emergency room Cardiology consult Pulmonary consult Labs and medication were reviewed.. Continue same treatment. Continue with symptomatic treatment. Resume home medication. Monitor labs and vitals. DVT and GI prophylaxis. Further recommendations as per clinical course of the patient DVT prophylaxis: heparin GI Prophylaxis: Pepcid PT/OT: Pending Prognosis is guarded
--- NOTE | 2022-10-20 11:28 | P.CNPUL ---
History of Present Illness Consult date: 10/20/22 Reason for consult: COPD, lung mass History of present illness: A 62-year-old male patient, presented to the emergency department because of pain across the left chest with deep breathing. The pain was sharp estimated to be 3 out of 10 in severity. He also had some cough and whitish phlegm and some increased shortness of breath because of the pain. No nausea. No vomiting. No diarrhea. No hemoptysis. He is currently on room air oxygen. He came into the emergency and the patient was found to have a d-dimer of 1.39. The CT antigram of the chest was done. I reviewed the images and there is no evidence of any pulmonary embolism. However, there are other abnormalities which included 3.4 x 2.4 cm mass in the lateral left upper lobe and some pneumonitis involving the right middle lobe. There is also evidence of enlarged lymphadenopathy measuring up to 1.6 cm in size mainly in the pretracheal area in addition to 1.4 cm subcarinal lymph nodes. Based on that, a pulmonary consultation was requested. Currently, the patient is doing well. He is on room air oxygen. Troponins at 0.05. His EKG showed a sinus rhythm with frequent PVCs in the form of a bigeminal rhythm. He does have some septal Q waves also. No known history of coronary artery disease. He is a chronic smoker and smokes approximately one pack of cigarettes on a daily basis. Review of Systems Constitutional: Denies chills, Denies fever Eyes: denies as per HPI, denies blurred vision, denies bulging eye, denies decreased vision, denies diplopia, denies discharge, denies dry eye, denies irri tation, denies itching, denies pain, denies photophobia, denies loss of peripheral vision, denies loss of vision, denies tunnel vision/blind spots Ears, nose, mouth and throat: Reports as per HPI Breasts: absent: as per HPI, gynecomastia Cardiovascular: Reports chest pain Respiratory: Reports as per HPI, Reports congestion, Reports cough Gastrointestinal: Reports as per HPI Musculoskeletal: Reports as per HPI Musculoskeletal: absent: ankle pain, ankle stiffness, ankle swelling Integumentary: Reports as per HPI Neurological: Reports as per HPI Psychiatric: Reports as per HPI Endocrine: Reports as per HPI Hematologic/Lymphatic: Reports as per HPI Allergic/Immunologic: Reports as per HPI Past Medical History Past Medical History: Hypertension, Osteoarthritis (OA) History of Any Multi-Drug Resistant Organisms: None Reported Past Surgical History: Hernia Repair, Tonsillectomy Additional Past Surgical History / Comment(s): COLONOSCOPY , rt cataract 11/03/21 Past Anesthesia/Blood Transfusion Reactions: No Reported Reaction Past Psychological History: No Psychological Hx Reported Smoking Status: Current every day smoker Past Alcohol Use History: None Reported Past Drug Use History: None Reported - Past Family History Mother Family Medical History: No Reported History Medications and Allergies Home Medications Medication Instructions Recorded Confirmed Type No Known Home Medications 10/20/22 10/20/22 History Allergies Allergy/AdvReac Type Severity Reaction Status Date / Time No Known Allergies Allergy Verified 10/20/22 08:16 Physical Exam Vitals: Vital Signs Temp Pulse Pulse Resp BP BP Pulse Ox 10/20/22 09:24 70 18 143/85 95 10/20/22 08:42 98.4 F 70 18 152/65 96 10/20/22 08:05 82 18 152/95 95 10/20/22 05:51 87 22 98 10/20/22 05:27 97.6 F 46 L 18 120/79 98 Intake and Output 10/19/22 10/20/22 10/20/22 22:59 06:59 14:59 Other: Weight 88.451 kg Gen. appearance the patient is calm and comfortable currently on room air oxygen Head exam was generally normal. There was no scleral icterus or corneal arcus. Mucous membranes were moist. Neck was supple and without jugular venous distension, thyromegaly, or carotid bruits. Carotids were easily palpable bilaterally. There was no adenopathy. Lungs sounds are diminished bilaterally and the patient has scattered expiratory wheezes throughout the lung shen Heart sounds are irregular, consistent with a bigeminal rhythm. No significant murmurs appreciated. Abdominal exam revealed normal bowel sounds. The abdomen was soft, non-tender, and without masses, organomegaly, or appreciable enlargement of the abdominal aorta. Examination of the extremities revealed easily palpable radial, femoral and pedal pulses. There was no cyanosis, clubbing or edema. Examination of the skin revealed no evidence of significant rashes, suspicious appearing nevi or other concerning lesions. Neurologically, the patient is awake and alert and the patient does not have any focal neurological deficit. Cranial nerves are essentially intact. Results - Laboratory Findings CBC and BMP: 10/20/22 05:55 10/20/22 05:55 PT/INR, D-dimer PT 9.7 sec (9.0-12.0) 10/20/22 05:55 INR 0.9 (<1.2) 10/20/22 05:55 D-Dimer 1.39 mg/L FEU (<0.60) H 10/20/22 05:55 Abnormal lab findings: Abnormal Labs 10/20/22 10/20/22 10/20/22 05:55 05:55 05:55 D-Dimer 1.39 H Glucose 103 H Troponin I 0.050 H* - Diagnostic Findings Chest x-ray: image reviewed CT scan - chest: image reviewed Assessment and Plan Plan: Lung mass measuring 3.4 x 2.4 cm in size, localized peripherally in the left upper lobe, abutting the chest wall in addition to mediastinal lymphadenopathy a nd some smaller nodules involving the right lung and the findings are highly suspicious for metastatic lung cancer. Left-sided chest wall pain, probably origin aching from the left lung mass which is abutting the pleural surface COPD with chronic dyspnea Chronic smoker Bigeminal rhythm Hypertension Osteoarthritis Minimal troponin elevation with a bigeminal cardiac rhythm. Plan The patient is highly suggestive of malignancy, I do suspect a metastatic primary bronchus and a carcinoma I talked to the patient about doing a bronchoscopy, biopsy of the left upper lobe mass and endobronchial ultrasound regarding the mediastinal lymphadenopathy. Patient seems to be agreeable. However, would like to obtain a cardiac clearance prior to him having this procedure done. I'm going to put him on DuoNeb neb blotchiness on the clock and IV Solu-Medrol 60 mg every 6 hours to further optimize his COPD Nicotine patch The patient is currently on IV heparin. This was initiated by emergency. We'll be awaiting a full cardiology consultation and hoping for a cardiac clearance for a bronchoscopy that will be done under anesthesia/general anesthetics with the patient being intubated on mechanical ventilator. If clearances given, will proceed for the procedure tomorrow. Give them patient nothing by mouth accordingly after midnight Echocardiogram today We'll continue to follow Time with Patient: Greater than 30
[2022-10-20] MEDS: IPRATROPIUM-ALBUTEROL 3 ML NEB INHALATION SCH ×3 (12:03→20:34)
--- NOTE | 2022-10-20 12:41 | P.CRDCN ---
History of Present Illness Consult date: 10/20/22 History of present illness: History of present illness: This is a 62 year old male with past medical history of hypertension but ran out of lisinopril, active tobacco use and dependence. 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 We have been a gastric evaluate the patient forV. tach and elevated troponin. Patient states he's had shortness of breath, cough with phlegm production and left sided chest pain worse with deep breathing. He states he has occasional shortness of breath with activity. He describes the pain as sharp with deep breathing and it started last evening. He is currently smoking a half to 1 pack per day. He denies alcohol use. In the emergency center, patient was started on amiodarone drip and heparin drip. EKG sinus rhythm with frequent PVCs, telemetry strip shows a run of V. tach and now telemetry is bigeminy trigeminy Chest x-ray: Mild cardiomegaly with peripheral left upper lobe masslike consolidation. Correlate for pneumonia. CTA of the chest reveals no acute pulmonary embolism. Left perihilar lung mass. Enlarged mediastinal lymph node suspicious for metastatic disease. Mass is 3.4 x 2.4 cm. CBC is unremarkable. D-dimer 1.39. Electrolytes normal, creatinine 0.86. Bl ood sugar 103. Troponin 0.050 and 0.029. TSH 0.860. Liver function tests are normal Home cardiac medications: Lisinopril 10 mg daily Review Of Systems: At the time of my evaluation: Constitutional: No fever, no chills. No weakness, fatigue or lethargy. EENT: No headache. No dizziness. Lungs: Reports intermittent shortness of breath, reports cough, reports sputum production. No wheezing. Cardiovascular: Reports lower left chest pain, no lower extremity edema. No palpitations. No paroxysmal nocturnal dyspnea. No orthopnea. No lightheadedness or dizziness. No syncopal episodes. Abdominal: No abdominal pain. No nausea, vomiting. No diarrhea. No constipation. No bloody or tarry stools. Genitourinary: No dysuria.. No urinary retention. Musculoskeletal: No myalgias. No muscle weakness, no frequent falls. No back pain. No neck pain. Integumentary: No wounds. No rash. No unusual bruising. Neurologic: No aphasia. No facial droop. No change in mentation. No head injury. No headache. Physical examination: Gen: This is a 62-year-old male. He is resting in bed appears to be comfortable at rest. VS: reviewed blood pressure 143/85, heart rate running 50s to 112, pulse ox 95% on oxygen HEENT: Head is atraumatic, normocephalic. Pupils equal, round. Sclerae is anicteric. NECK: Supple. No JVD. . LUNGS: Diminished bilaterally. No intercostal retractions. HEART: Irregular rate and rhythm. No murmur. ABDOMEN: Soft No tenderness. EXTREMITIES: No pedal edema. No calf tenderness. NEUROLOGICAL: Patient is awake, alert and oriented x3. Assessment: Nonsustained ventricular tachycardia Left upper lobe mass COPD Hypertension Active tobacco use and dependence Plan: Discontinue IV amiodarone and transition patient to amiodarone 400 mg twice daily oral Start patient on aspirin 81 mg daily, atorvastatin 40 mg daily, increase lisinopril to 20 mg daily Obtain 2-D echocardiogram and Doppler study to assess cardiac structure and function Obtain hemoglobin A1c, lipid panel and repeat troponins Further recommendations to follow based upon clinical course Thank you kindly for this consultation. Nurse practitioner note has been reviewed, I agree with documented findings and plan of care. Patient was seen and examined. Past Medical History Past Medical History: Hypertension, Osteoarthritis (OA) History of Any Multi-Drug Resistant Organisms: None Reported Past Surgical History: Hernia Repair, Tonsillectomy Additional Past Surgical History / Comment(s): COLONOSCOPY , rt cataract 11/03/21 Past Anesthesia/Blood Transfusion Reactions: No Reported Reaction Past Psychological History: No Psychological Hx Reported Smoking Status: Current every day smoker Past Alcohol Use History: None Reported Past Drug Use History: None Reported - Past Family History Mother Family Medical History: No Reported History Medications and Allergies Home Medications Medication Instructions Recorded Confirmed Type No Known Home Medications 10/20/22 10/20/22 History Allergies Allergy/AdvReac Type Severity Reaction Status Date / Time No Known Allergies Allergy Verified 10/20/22 08:16 Physical Exam Vitals: Vital Signs Temp Pulse Pulse Resp BP BP Pulse Ox 10/20/22 09:24 70 18 143/85 95 10/20/22 08:42 98.4 F 70 18 152/65 96 10/20/22 08:05 82 18 152/95 95 10/20/22 05:51 87 22 98 10/20/22 05:27 97.6 F 46 L 18 120/79 98 Intake and Output 10/19/22 10/20/22 10/20/22 22:59 06:59 14:59 Other: Weight 88.451 kg Results 10/20/22 05:55 10/20/22 05:55 Cardiac Enzymes 10/20/22 10/20/22 Range/Units 05:55 05:55 AST 32 (17-59) U/L Troponin I 0.050 H* (0.000-0.034) ng/mL Coagulation 10/20/22 Range/Units 05:55 PT 9.7 (9.0-12.0) sec APTT 25.5 (22.0-30.0) sec CBC 10/20/22 Range/Units 05:55 WBC 5.2 (3.8-10.6) k/uL RBC 4.82 (4.30-5.90) m/uL Hgb 14.0 (13.0-17.5) gm/dL Hct 42.7 (39.0-53.0) % Plt Count 230 (150-450) k/uL Comprehensive Metabolic Panel 10/20/22 Range/Units 05:55 Sodium 139 (137-145) mmol/L Potassium 4.1 (3.5-5.1) mmol/L Chloride 106 (98-107) mmol/L Carbon Dioxide 26 (22-30) mmol/L BUN 15 (9-20) mg/dL Creatinine 0.86 (0.66-1.25) mg/dL Glucose 103 H (74-99) mg/dL Calcium 9.0 (8.4-10.2) mg/dL AST 32 (17-59) U/L ALT 30 (4-49) U/L Alkaline Phosphatase 119 (38-126) U/L Total Protein 6.7 (6.3-8.2) g/dL Albumin 3.7 (3.5-5.0) g/dL Current Medications Generic Name Dose Route Start Last Admin Trade Name Freq PRN Reason Stop Dose Admin Acetaminophen 650 mg 10/20/22 09:20 Acetaminophen Tab 325 Mg Tab PO Q6HR PRN Fever and/ or Pain Amiodarone HCl 400 mg 10/20/22 09:45 Amiodarone 200 Mg Tab PO BID [facility] Aspirin 81 mg 10/21/22 09:00 Aspirin 81 Mg PO DAILY [facility] Atorvastatin Calcium 40 mg 10/21/22 09:00 Atorvastatin 40 Mg Tab PO DAILY [facility] Famotidine 20 mg 10/20/22 21:00 Famotidine 20 Mg/2 Ml Vial IV Q12HR [facility] Heparin Sodium (Porcine) 0 unit 10/20/22 07:50 Heparin Sodium 1,000 Un/Ml (10ml Vl) IV PER PROTOCOL PRN Low PTT Protocol Amiodarone HCl 360 mg/ 200 mls @ 33.333 mls/hr 10/20/22 08:10 10/20/22 08:33 Dextrose/Water IV 10/20/22 14:09 1 mg/min .Q6H ONE 33.333 mls/hr Administration Protocol 1 MG/MIN Heparin Sodium/Sodium Chloride 250 mls @ 9.995 mls/hr 10/20/22 08:00 10/20/22 08:39 25,000 unit/ Sodium Chloride IV 11.3 units/kg/hr .Q24H SAY 9.995 mls/hr Administration Protocol 11.3 UNITS/KG/HR Sodium Chloride 1,000 mls @ 20 mls/hr 10/20/22 08:00 10/20/22 08:39 Saline 0.9% IV 20 mls/hr .Q24H SAY Administration Lisinopril 20 mg 10/20/22 10:00 Lisinopril 20 Mg Tab PO DAILY [facility] Naloxone HCl 0.2 mg 10/20/22 07:54 Naloxone 0.4 Mg/Ml 1 Ml Vial IV Q2M PRN Opioid Reversal Intake and Output 10/19/22 10/20/22 10/20/22 22:59 06:59 14:59 Other: Weight 88.451 kg 10/20/22 05:55 10/20/22 05:55
[2022-10-20] MEDS: lisinopriL 20 MG TAB PO SCH (13:11)
[2022-10-20] MEDS: AMIODARONE 200 MG TAB PO SCH ×2 (13:11→20:24)
[2022-10-20] MEDS: methylPREDNISolone SOD SUCCI 125 MG/2 ML VIAL IV SCH ×2 (13:11→16:39)
[2022-10-20] MEDS: NICOTINE 14MG/24HR PATCH TRANSDERM SCH (13:41)
[2022-10-20] MEDS ORDERED: AMIODARONE 450 MG in DEXTROSE 5% IN WATER 250 ML IV SCH ×2 (14:00)
[2022-10-20] MEDS: FAMOTIDINE 20 MG TAB PO SCH (20:24)
[2022-10-20] MEDS ORDERED: FAMOTIDINE 20 MG/2 ML VIAL IV SCH (21:00)
[2022-10-21] MEDS ORDERED: DEXTROSE 50% SYRINGE 50 ML IVP PRN ×2 (00:08)
[2022-10-21] MEDS: methylPREDNISolone SOD SUCCI 125 MG/2 ML VIAL IV SCH ×3 (00:19→12:40)
[2022-10-21 06:16] LABS: Glucose,Whole Blood 121 mg/dL (70-110)
[2022-10-21] MEDS: INSULIN ASPART (NovoLOG) 100 UNIT/ML VIAL SQ SCH ×2 (06:30→11:56)
[2022-10-21] MEDS: IPRATROPIUM-ALBUTEROL 3 ML NEB INHALATION SCH ×3 (07:52→15:53)
[2022-10-21 08:53] VITALS: RESP 18
[2022-10-21] MEDS: NICOTINE 14MG/24HR PATCH TRANSDERM SCH (08:54)
[2022-10-21] MEDS: AMIODARONE 200 MG TAB PO SCH (08:58)
[2022-10-21] MEDS: lisinopriL 20 MG TAB PO SCH (08:58)
[2022-10-21] MEDS: SODIUM CHLORIDE 0.9% 1,000 ML IV SCH (08:59)
[2022-10-21] MEDS: HEPARIN SOD,PORK IN 0.45% NACL 25,000 UNIT in 0.45% NACL 1 250ML.BAG IV SCH (08:59)
[2022-10-21] MEDS: FAMOTIDINE 20 MG TAB PO SCH (08:59)
[2022-10-21] MEDS ORDERED: ATORVASTATIN 40 MG TAB PO SCH (09:00)
[2022-10-21] MEDS ORDERED: ASPIRIN 81 MG PO SCH (09:00)
[2022-10-21] MEDS ORDERED: lisinopriL 10 MG TAB PO STA (09:04)
--- NOTE | 2022-10-21 09:31 | CA ---
Transthoracic Echo Report Name: Daniel Delatorre Age: 62 Gender: M : 1960 Exam Date: 10/20/2022 11:28 Exam Location: [facility] Ht (in): 76 Wt (lb): 195 Ordering Physician: Delicia Marti Attending/Referring Phys: [id number], Figueroa Cook Night Rodrigo Jacob, [facility] Procedure CPT: Indications: LVF Cardiac Hx: Technical Quality: Fair Contrast 1: Total Dose (mL): Contrast 2: Total Dose (mL): MEASUREMENTS (Male / Female) Normal Values 2D ECHO LV Diastolic Diameter PLAX 6.0 cm 4.2 - 5.9 / 3.9 - 5.3 cm LV Systolic Diameter PLAX 5.0 cm LV Fractional Shortening PLAX 16.1 % IVS Diastolic Thickness 0.7 cm 0.6 - 1.0 / 0.6 - 0.9 cm IVS Systolic Thickness 1.0 cm LVPW Diastolic Thickness 0.9 cm 0.6 - 1.0 / 0.6 - 0.9 cm LVPW Systolic Thickness 1.5 cm LV Relative Wall Thickness 0.3 RV Internal Dim ED PLAX 3.2 cm LVOT Diameter 2.4 cm LA Systolic Diameter LX 3.4 cm 3.0 - 4.0 / 2.7 - 3.8 cm LV Diastolic Volume MOD BP 165.5 cm??? 67 - 155 / 56 - 104 cm??? LV Systolic Volume MOD BP 123.4 cm??? 22 - 58 / 19 - 49 cm??? LV Ejection Fraction MOD BP 25.4 % >= 55 % LV Stroke Volume MOD BP 42.1 cm??? LV Diastolic Volume MOD 4C 143.9 cm??? LV Systolic Volume MOD 4C 101.8 cm??? LV Ejection Fraction MOD 4C 29.3 % LV Stroke Volume MOD 4C 42.1 cm??? LV Diastolic Length 4C 8.2 cm LV Systolic Length 4C 7.7 cm LV Diastolic Volume MOD 2C 191.6 cm??? LV Systolic Volume MOD 2C 144.3 cm??? LV Ejection Fraction MOD 2C 24.7 % LV Stroke Volume MOD 2C 47.3 cm??? LV Diastolic Length 2C 8.2 cm LV Systolic Length 2C 8.0 cm M-MODE Aortic Root Diameter MM 3.3 cm LA Systolic Diameter MM 3.6 cm LA Ao Ratio MM 1.1 MV E Point Septal Separation 2.5 cm AV Cusp Separation MM 2.1 cm DOPPLER AV Peak Velocity 130.3 cm/s AV Peak Gradient 6.8 mmHg MV Deceleration Bullitt 542.8 cm/s??? MR Peak Velocity 317.2 cm/s MR Peak Gradient 40.2 mmHg Mitral E Point Velocity 120.3 cm/s Mitral A Point Velocity 72.4 cm/s Mitral E to A Ratio 1.7 MV Deceleration Time 221.6 ms MV E' Velocity 6.1 cm/s Mitral E to MV E' Ratio 19.8 TR Peak Velocity 348.6 cm/s TR Peak Gradient 48.6 mmHg Right Ventricular Systolic Press 56.6 mmHg PV Peak Velocity 109.2 cm/s PV Peak Gradient 4.8 mmHg FINDINGS Left Ventricle Left ventricular ejection fraction is estimated at 35-40 %. Mild left ventricular dilatation. Global left ventricular hypokinesis. Right Ventricle Right ventricle at upper limits of normal. RVSP_ 57 mm Hg. Right Atrium Mild right atrial dilatation. Left Atrium Left atrial size at the upper limits of normal. Mitral Valve Mitral valve thickened. Moderate mitral regurgitation. Aortic Valve Trileaflet aortic valve. Diffuse thickening (sclerosis) of the aortic valve cusps without reduced excursion. Tricuspid Valve [id number] tricuspid regurgitation. Pulmonic Valve Mild pulmonic regurgitation. Pericardium Normal pericardium. Minimal pericardial effusion (normal variant). Aorta Normal size aortic root and proximal ascending aorta. CONCLUSIONS Left ventricular ejection fraction 35-40% with global hypokinesis Mild left ventricular dilation RVSP 57 Moderate mitral regurgitation Mild to moderate tricuspid regurgitation Minimal pericardial effusion Previewed by: Dr. Joe Long DO (Electronically Signed) Final Date: 21 October 2022 09:30
[2022-10-21 11:26] VITALS: TEMP 97.7
[2022-10-21 11:30] VITALS: BP 150/78
[2022-10-21 11:55] LABS: Glucose,Whole Blood 111 mg/dL (70-110)
--- NOTE | 2022-10-21 12:09 | P.PN ---
Subjective Progress Note Date: 10/21/22 History of present illness: This is a 62 year old male with past medical history of hypertension but ran out of lisinopril, active tobacco use and dependence. 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 We have been a gastric evaluate the patient forV. tach and elevated troponin. Patient states he's had shortness of breath, cough with phlegm production and left sided chest pain worse with deep breathing. He states he has occasional shortness of breath with activity. He describes the pain as sharp with deep breathing and it started last evening. He is currently smoking a half to 1 pack per day. He denies alcohol use. In the emergency center, patient was started on amiodarone drip and heparin drip. EKG sinus rhythm with frequent PVCs, telemetry strip shows a run of V. tach and now telemetry is bigeminy trigeminy Chest x-ray: Mild cardiomegaly with peripheral left upper lobe masslike consolidation. Correlate for pneumonia. CTA of the chest reveals no acute pulmonary embolism. Left perihilar lung mass. Enlarged mediastinal lymph node suspicious for metastatic disease. Mass is 3.4 x 2.4 cm. CBC is unremarkable. D-dimer 1.39. Electrolytes normal, creatinine 0.86. Blood sugar 103. Troponin 0.050 and 0.029. TSH 0.860. Liver function tests are normal Home cardiac medications: Lisinopril 10 mg daily 10/21 The patient has been cleared from cardiology to undergo bronchoscopy and biopsy of the lung tumor. Heparin will be discontinued. Lisinopril increased as blood pressure is 154/84. Patient continues to have frequent PVCs, bigeminy. Patient denies having any chest pain and shortness of breath. A1c 5.8. Third troponin is 0.0-4. Echocardiogram reveals EF of 35-40% with global hypokinesis. Mild left ventricular dilation, RVSP 57, moderate mitral regurgitation, mild to moderate tricuspid regurgitation, minimal pericardial effusion. Physical examination: Gen: This is a 62-year-old male. He is resting in bed appears to be comfortable at rest. HEENT: Head is atraumatic, normocephalic. Pupils equal, round. Sclerae is anicteric. NECK: Supple. No JVD. . LUNGS: Diminished bilaterally. No intercostal retractions. HEART: Irregular rate and rhythm. No murmur. ABDOMEN: Soft No tenderness. EXTREMITIES: No pedal edema. No calf tenderness. NEUROLOGICAL: Patient is awake, alert and oriented x3. Assessment: Nonsustained ventricular tachycardia Left upper lobe mass COPD Hypertension Active tobacco use and dependence Plan: Continue patient on amiodarone 400 mg twice daily, aspirin 81 mg daily, ator vastatin 40 mg daily Increase lisinopril to 30 mg daily starting this morning Continue telemetry monitoring and blood pressure monitoring Obtain lipid panel Further recommendations to follow based upon clinical course Nurse practitioner note has been reviewed, I agree with documented findings and plan of care. Patient was seen and examined. Objective - Vital Signs Vital signs: Vital Signs Temp 97.7 F 10/21/22 11:26 Pulse 44 L 10/21/22 11:26 Resp 18 10/21/22 11:26 BP 150/78 10/21/22 11:26 Pulse Ox 94 L 10/21/22 11:26 FiO2 Intake & Output 10/20/22 10/21/22 10/21/22 18:59 06:59 18:59 Intake Total 1159.46 170.54 5.255 Balance 1159.46 170.54 5.255 Weight 88.451 kg Intake: IV 5 Invasive Line 1 5 Intake, IV Titration 79.46 170.54 0.255 Amount Heparin Sod,Pork in 0.45% 79.46 170.54 0.255 NaCl 25,000 unit In 0.45 % NaCl 1 250ml.bag @ 11.3 UNITS/KG/HR 9.995 mls/hr IV .Q24H [facility] Rx#: [id number] Oral 1080 Other: Voiding Method Toilet # Voids 2 1 1 - Labs CBC & Chem 7: 10/20/22 05:55 10/20/22 05:55 Labs: Abnormal Lab Results - Last 24 Hours (Table) 10/21/22 10/21/22 10/21/22 Range/Units 06:15 08:09 11:52 APTT 31.5 H (22.0-30.0) sec POC Glucose (mg/dL) 121 H 111 H (70-110) mg/dL
[2022-10-21 12:21] VITALS: PULSE 52
--- NOTE | 2022-10-21 12:41 | P.PN ---
Subjective this is a pleasant 62 yo M with past medical history of hypertension , and osteoarthritis no on home medication Presents because of chest pain in the left chest increase with deep breathing, described as sharp pain about 3-5/10 in severity since yesterday, associated with some cough and white phlegm and shortness of breath because of the pain. He denies any GI or urinary symptoms. No headache dizziness or weakness. Patient is a smoker smokes a half pack to 1 pack per day, smokes more when he is at home and not working. No alcohol or illicit drugs Vitals stable Has unremarkable CBC, INR, BMP and liver enzymes. Bone and mildly elevated 0.05 D-dimer is mildly elevated at 1.39 and had CTA of the chest showing, no acute pulmonary embolism, he has left peripheral lung mass with enlarged mediastinal lymph nodes suspicious for metastatic disease EKG showing normal sinus rhythm at [address]-T changes EKG showing PVCs with normal sinus rhythm at 79/m with downsloping ST segment in V4-V5-V6, however patient also has curtailed LVH. And QTC is 457. 10/21/2022 Physician slightly tachypneic now much follow-up exploration over his medrol 16 mg. no chest pain, plan for bronchoscopy today for his left chest lung mass. Cardiology team gave clearance to proceed with a bronchoscopy and a Place on several cardiac medication amiodarone 400 mg lisinopril 30 mg and Lipitor as well as aspirin 81 mg. Echocardiogram showed ejection fraction of 55-40% with RSV the of 57% with moderate mitral regurgitation patient is still getting heparin drip Objective - Vital Signs Vital signs: Vital Signs Temp 97.7 F 10/21/22 11:26 Pulse 52 L 10/21/22 12:21 Resp 18 10/21/22 11:26 BP 150/78 10/21/22 11:26 Pulse Ox 94 L 10/21/22 11:26 FiO2 Intake & Output 10/20/22 10/21/22 10/21/22 18:59 06:59 18:59 Intake Total 1159.46 170.54 5.255 Balance 1159.46 170.54 5.255 Weight 88.451 kg Intake: IV 5 Invasive Line 1 5 Intake, IV Titration 79.46 170.54 0.255 Amount Heparin Sod,Pork in 0.45% 79.46 170.54 0.255 NaCl 25,000 unit In 0.45 % NaCl 1 250ml.bag @ 11.3 UNITS/KG/HR 9.995 mls/hr IV .Q24H [facility] Rx#: [id number] Oral 1080 Other: Voiding Method Toilet # Voids 2 1 1 - Exam GENERAL: The patient is alert and oriented x3, not in any acute distress. Well developed, well nourished. HEENT: Pupils are round and equally reacting to light. EOMI. No scleral icterus. No conjunctival pallor. Normocephalic, atraumatic. No pharyngeal erythema. No thyromegaly. CARDIOVASCULAR: S1 and S2 present. No murmurs, rubs, or gallops. PULMONARY: Chest is clear to auscultation, no wheezing or crackles. ABDOMEN: Soft, nontender, nondistended, normoactive bowel sounds. No palpable organomegaly. MUSCULOSKELETAL: No joint swelling or deformity. EXTREMITIES: No cyanosis, clubbing, or pedal edema. NEUROLOGICAL: Gross neurological examination did not reveal any focal deficits. SKIN: No rashes. no petechiae. - Labs CBC & Chem 7: 10/20/22 05:55 10/20/22 05:55 Labs: Abnormal Lab Results - Last 24 Hours (Table) 10/21/22 10/21/22 10/21/22 Range/Units 06:15 08:09 11:52 APTT 31.5 H (22.0-30.0) sec POC Glucose (mg/dL) 121 H 111 H (70-110) mg/dL Assessment and Plan Assessment: left peripheral lung mass with enlarged mediastinal lymph nodes suspicious for metastatic disease, new diagnosis Nonsustained V. tach, Cardiomyopathy with ejection fraction of 35-40% Moderate mitral regurgitation History of Osteoarthritis History of hypertension Plan: Continue with bronchoscopy per pulmonary team of the case Continue with heparin drip which was started in the emergency room Cardiology consult. They cleared patient for bronchoscopy Pulmonary consult continue with cardiac medication, lisinopril, amiodarone, Lipitor and aspirin Labs and medication were reviewed.. Continue same treatment. Continue with symptomatic treatment. Resume home medication. Monitor labs and vitals. DVT and GI prophylaxis. Further recommendations as per clinical course of the patient DVT prophylaxis: heparin GI Prophylaxis: Pepcid PT/OT: Pending Prognosis is guarded
[2022-10-21] MEDS ORDERED: predniSONE 20 MG TAB PO SCH (13:15)
[2022-10-21 13:57] LABS: Chol/HDL Ratio 4.23 Ratio; LDL Cholesterol,Calculated 114.6 mg/dL (0.0-131.0)
--- NOTE | 2022-10-21 14:59 | P.PN ---
Subjective Progress Note Date: 10/21/22 A 62-year-old male patient, presented to the emergency department because of pain across the left chest with deep breathing. The pain was sharp estimated to be 3 out of 10 in severity. He also had some cough and whitish phlegm and some increased shortness of breath because of the pain. No nausea. No vomiting. No diarrhea. No hemoptysis. He is currently on room air oxygen. He came into the emergency and the patient was found to have a d-dimer of 1.39. The CT antigram of the chest was done. I reviewed the images and there is no evidence of any pulmonary embolism. However, there are other abnormalities which included 3.4 x 2.4 cm mass in the lateral left upper lobe and some pneumonitis involving the right middle lobe. There is also evidence of enlarged lymphadenopathy measuring up to 1.6 cm in size mainly in the pretracheal area in addition to 1.4 cm subcarinal lymph nodes. Based on that, a pulmonary consultation was requested. Currently, the patient is doing well. He is on room air oxygen. Troponins at 0.05. His EKG showed a sinus rhythm with frequent PVCs in the form of a bigeminal rhythm. He does have some septal Q waves also. No known history of coronary artery disease. He is a chronic smoker and smokes approximately one pack of cigarettes on a daily basis. On today's evaluation of 10/21/2022, the patient is being seen for a follow-up. The patient was supposed underwent bronchoscopy today, however, and I ended up postponing his procedure for next week to be on outpatient basis that the patient is not fully ready for the procedure, still having some congestion and shortness of breath related to COPD exacerbation. At the same time, cytology is not available for rapid on-site Evaluation. Patient was agreeable to the Procedure Leak. Meanwhile, he was advised by cardiology. Cardiology as well as. He does have some underlying bigeminal rhythm. His echocardiogram showed an ejection fraction of 35-40% with global hypokinesis. There was mild LV dilation and RVSP of 57. There was moderate mitral regurgitation, moderate tricuspid regurgitation minimal amount of pericardial effusion. As mentioned, his EKG was showing bigeminal rhythm. He continues to have frequent PVCs and bigeminy is he continues to have some shortness of breath. Based on that, the patient was started on amiodarone 400 mg by mouth twice a day and mastoids 1 mg by mouth daily, and the lisinopril dose has been increased up to 30 mg by mouth daily. He is also on aspirin. He is on Lipitor. Objective - Vital Signs Vital signs: Vital Signs Temp 97.7 F 10/21/22 11:26 Pulse 52 L 10/21/22 12:21 Resp 18 10/21/22 11:26 BP 150/78 10/21/22 11:26 Pulse Ox 94 L 10/21/22 13:10 FiO2 Intake & Output 10/20/22 10/21/22 10/21/22 18:59 06:59 18:59 Intake Total 1159.46 170.54 5.255 Balance 1159.46 170.54 5.255 Weight 88.451 kg Intake: IV 5 Invasive Line 1 5 Intake, IV Titration 79.46 170.54 0.255 Amount Heparin Sod,Pork in 0.45% 79.46 170.54 0.255 NaCl 25,000 unit In 0.45 % NaCl 1 250ml.bag @ 11.3 UNITS/KG/HR 9.995 mls/hr IV .Q24H SAY Rx#: [id number] Oral 1080 Other: Voiding Method Toilet # Voids 2 1 1 - Exam Gen. appearance the patient is calm and comfortable currently on room air oxygen Head exam was generally normal. There was no scleral icterus or corneal arcus. Mucous membranes were moist. Neck was supple and without jugular venous distension, thyromegaly, or carotid bruits. Carotids were easily palpable bilaterally. There was no adenopathy. Lungs sounds are diminished bilaterally and the patient has scattered expiratory wheezes throughout the lung shen Heart sounds are irregular, consistent with a bigeminal rhythm. No significant murmurs appreciated. Abdominal exam revealed normal bowel sounds. The abdomen was soft, non-tender, and without masses, organomegaly, or appreciable enlargement of the abdominal aorta. Examination of the extremities revealed easily palpable radial, femoral and pedal pulses. There was no cyanosis, clubbing or edema. Examination of the skin revealed no evidence of significant rashes, suspicious appearing nevi or other concerning lesions. Neurologically, the patient is awake and alert and the patient does not have any focal neurological deficit. Cranial nerves are essentially intact. - Labs CBC & Chem 7: 10/20/22 05:55 10/20/22 05:55 Labs: Abnormal Lab Results - Last 24 Hours (Table) 10/21/22 10/21/22 10/21/22 Range/Units 06:15 08:09 08:09 APTT 31.5 H (22.0-30.0) sec POC Glucose (mg/dL) 121 H (70-110) mg/dL HDL Cholesterol 39.70 L (40.00-60.00) mg/dL 10/21/22 Range/Units 11:52 APTT (22.0-30.0) sec POC Glucose (mg/dL) 111 H (70-110) mg/dL HDL Cholesterol (40.00-60.00) mg/dL Assessment and Plan Plan: Lung mass measuring 3.4 x 2.4 cm in size, localized peripherally in the left upper lobe, abutting the chest wall in addition to mediastinal lymphadenopathy and some smaller nodules involving the right lung and the findings are highly suspicious for metastatic lung cancer. Left-sided chest wall pain, probably origin aching from the left lung mass which is abutting the pleural surface COPD with chronic dyspnea, with significant exacerbation patient was on IV Solu- Medrol will be started on prednisone burst taper Systolic heart failure with an ejection fraction of 30-35% Chronic smoker Bigeminal rhythm Hypertension Osteoarthritis Minimal troponin elevation with a bigeminal cardiac rhythm. Plan Optimize cardio pulmonary status We'll postpone the bronchoscopy next week Discharge is per medicine and cardiology. In terms of his respiratory status, I'm going to put the patient is a chest x-ray, nebulizer, prednisone burst ta per, smoking cessation, outpatient bronchoscopy early next week. Awaiting a documented cardiac clearance and the medical records for the procedure.
== END 2022-10-21 16:45 | disposition home or self-care (01) | DRG 181 ==
LOC: EC 05:23 → 3SCARD 07:57
PROVIDERS: ADMIT Hospitalist; ATTEND Hospitalist
PROC: B246ZZ4 Ultrasonography of Right and Left Heart, Transesophageal (ICD-10-PCS; principal; 2022-10-20)
DX: C34.90 Malignant neoplasm of unspecified part of unspecified bronchus or lung (principal); C77.1 Secondary and unspecified malignant neoplasm of intrathoracic lymph nodes; I31.39 Other pericardial effusion (noninflammatory); I42.9 Cardiomyopathy, unspecified; I47.20 Ventricular tachycardia, unspecified; J44.9 Chronic obstructive pulmonary disease, unspecified; F17.210 Nicotine dependence, cigarettes, uncomplicated; N62 Hypertrophy of breast; I08.1 Rheumatic disorders of both mitral and tricuspid valves; I10 Essential (primary) hypertension; I49.3 Ventricular premature depolarization; Z79.899 Other long term (current) drug therapy; Z71.6 Tobacco abuse counseling; Z87.19 Personal history of other diseases of the digestive system
CPT/HCPCS: 36415; 71046; 71275; 80053; 80061; 83036; 84443; 84484; 85025; 85379; 85610; 85730; 93005; 93306; 94640; 94760; 96365; 96375; 99285

== ENCOUNTER 2022-10-27 10:42 | Day surgery (SDC) | payer OTHER ==
[2022-10-26 08:22] VITALS: BMI 23.7
[~2022-10-27 10:42] MED LIST changes: -CYCLOPENTOLATE 1% OPHTH SOLN 2 ML BTL OP PRN; +LACTATED RINGERS 1,000 ML IV SCH; +LIDOCAINE VISCOUS 300 MG/15 ML CUP MUCOUS MEM ONE; -MOXIFLOXACIN HCL 0.5% DROPS 3 ML BTL OP PRN; -PHENYLEPHRINE 2.5% OPHTH DRP 2ML OP PRN; +SODIUM CHLORIDE 0.9% 1,000 ML IV SCH; -TETRACAINE 0.5% OPHTH (PF) DROPS 4 ML BTL OP PRN; -TIMOLOL 0.5% OPHTH DROPS 5 ML BTL OP PRN
[2022-10-27 11:17] VITALS: TEMP 96.9
[2022-10-27] MEDS ORDERED: ONDANSETRON 4 MG/2 ML VIAL ONE (11:25)
[2022-10-27] MEDS ORDERED: DEXAMETHASONE SOD PHOSPHATE 4 MG/ML 1 ML VIAL IVP ONE (11:25)
[2022-10-27 11:31] LABS: Glucose,Whole Blood 93 mg/dL (70-110)
--- NOTE | 2022-10-27 12:20 | CT ---
EXAMINATION TYPE: CT Chest wo con Veran Protocol DATE OF EXAM: 10/27/2022 COMPARISON: 10/20/2022 HISTORY: Veran protocol bronchoscopy guidance CT DLP: 613 mGycm Automated exposure control for dose reduction was used. FINDINGS: Lungs are clear. There is no pleural effusion or pneumothorax. There is biapical pleural thickening a nd emphysematous changes. Large mass in the periphery of the left upper lobe measuring 3.2 cm. Vague density measuring 6 mm right middle lobe superior segment image 45.. Enlarged aortopulmonic window lymphadenopathy is present measuring 1.6 cm. Some pretracheal lymphaden opathy may be present. There is a large subcarinal measuring 1.4 cm. The ascending aorta diameter at the level of the main pulmonary artery is 3.9 cm. The main pulmonary artery diameter at the bifurcati on is 3.[address] section through the upper abdomen are unremarkable. Hypertrophic degenerative changes of t he spine. Heart is enlarged. There is dense coronary artery calcification. Calcified lymph node is se en and there is a calcified granuloma right upper lobe measuring 0.8 cm. Nodular subsegmental consolidation anterior segment left lower lobe on the axial images appears to be more indicative of planar morphology and coronal and sagittal images and therefore more typical of a telectasis or scarring. IMPRESSION: PREPROCEDURAL PLANNING FOR LARGE MASS LEFT UPPER LOBE MEASURING 3.2 CM.
[2022-10-27] MEDS ORDERED: PROPOFOL 10 MG/ML 20 ML VIAL IV ONE (12:48)
[2022-10-27] MEDS ORDERED: ePHEDrine 50 MG/ML 1 ML VIAL ONE (12:48)
[2022-10-27] MEDS ORDERED: LIDOCAINE 2% INJ 20 MG/ML (2 ML VIAL) ONE (12:48)
[2022-10-27] MEDS ORDERED: MIDAZOLAM 2 MG/2 ML VIAL ONE (12:48)
[2022-10-27] MEDS ORDERED: fentaNYL (PF) 50 MCG/ML 2 ML AMP ONE (12:48)
[2022-10-27] MEDS ORDERED: SUCCINYLCHOLINE CHLORIDE 200 MG/10 ML VIAL IV ONE (12:48)
--- NOTE | 2022-10-27 14:23 | P.PCN ---
Date of Procedure: 10/27/22 Preoperative Diagnosis: Left upper lobe mass Mediastinal lymphadenopathy Postoperative Diagnosis: left upper lobe mass Mediastinal lymphadenopathy Procedure(s) Performed: Flexible bronchoscopy Transbronchial biopsy, transbronchial brushing of the left upper lobe mass Endobronchial ultrasound Transbronchial needle aspirate of subcarinal station 7, right paratracheal 4R and left paratracheal 4L lymph nodes. Anesthesia: GETA Surgeon: Anthony Mcgee Estimated Blood Loss (ml): 0 Pathology: other Condition: stable Disposition: same day Operative Findings: The patient had a preoperative computed tomography scan of the chest using the Veran protocol. The CAT scan images were reviewed. The right lower lobe opacity was identified it was mapped appropriately. The CAT scan images are uploaded into a USB and then into the [employer] tower. After obtaining the consent the patient was taken to the OR suite he was intubated and put on mechanical ventilation by anesthesia then the scope was advanced to the ET tube until the Trachea was seen and it was normal and then the august appears normal then the scope advanced to the left main and ISABEL LB1- LB3 were seen and no endobronchial lesions were seen then the scope advanced to the lingula and the LB4 and LB5 were seen and no endobronchial lesions were seen the scope retracted and advanced to the left lower lobes LB6 to LB12 were seen one by one and no endobronchial lesions, then the scope was retracted back to the august and advanced to the Right main and RUL RB1 and RB2 and RB3 were seen one by one and no endobronchial lesions were seen the scope. The bronchoscope was then retracted and advanced to the BI and RML RB4 and RB5 were seen and no endobronchial lesions were seen then it was retracted and advanced to the RLL RB6 to RB12 were seen one by one and no endobronchial lesions. Navigation bronchoscopy was performed. The main august and the secondary august on the left were used as the reference points and appropriate calibration was done. Following that, using a navigation guidance , the bronchoscope was advanced to left upper lobe anterior segment and using navigation guidance transbronchial biopsies and brushings of the left upper lobe mass was done without any complications. The flexible bronchoscope was removed and the endobronchial ultrasound was inserted. Then EBUS was used and the lymph nodes were examined. Direct measurement of the mediastinal lymph nodes revealed 1 cm station 4R lymph node, no 10 R lymph node, a 1 cm station 11 R s lymph nodes, 2.3 x 2.4 cm station 7 lymph node and 1 x 1 cm 4L lymph nodes and a 1 x 0.8cm 10 L lymph node. I performed transbronchial needle aspirate of station 7 and a total of 4 passes FNA without major bleeding station 4 R lymph nodes were a total of 1 pass was obtained and station 4 L lymph node, a total of 1 pass.. No major bleeding and the scope was removed and taken out in total the patient was send to the floor in stable condition
--- NOTE | 2022-10-27 14:43 | XR ---
EXAMINATION TYPE: XR chest 1V portable DATE OF EXAM: 10/27/2022 HISTORY: POST BRONCHOSCOPY COMPARISON: 10/20/2022 TECHNIQUE: Single view of the chest is submitted. FINDINGS: Demonstrated are scattered senescent parenchymal change. Masslike density left midlung zone. No evidence for pneumothorax. The heart is stable. Hilar and mediastinal structures are within normal limits. Degenerative changes are seen of the dorsal spine. IMPRESSION: 1. Masslike density left midlung zone. No evidence for pneumothorax.
[2022-10-27 15:04] VITALS: RESP 20
[2022-10-27 15:18] VITALS: BP 142/90; PULSE 67
== END 2022-10-27 15:57 | disposition home or self-care (01) ==
LOC: ORWHC2ENDO 10:42
PROVIDERS: ATTEND Internal Medicine Critical Care Medicine
DX: R91.1 Solitary pulmonary nodule (principal); J44.9 Chronic obstructive pulmonary disease, unspecified; I10 Essential (primary) hypertension; K21.9 Gastro-esophageal reflux disease without esophagitis; E78.5 Hyperlipidemia, unspecified; Z79.899 Other long term (current) drug therapy
CPT/HCPCS: 71045; 71250; 31625; 31633; 31623; 31627; 31653; J2250; J0330; J1100; J2405; J3010; J2704; J2001

== ENCOUNTER 2022-12-12 13:14 | Emergency (ER) | payer OTHER ==
[2022-12-12 13:33] VITALS: RESP 16
[2022-12-12] MEDS ORDERED: SODIUM CHLORIDE 0.9% 1,000 ML IV STA (14:33)
[2022-12-12] MEDS ORDERED: KETOROLAC 15 MG/ML 1 ML VIAL IVP STA (15:10)
[2022-12-12 15:42] LABS: ALT 18 U/L (4-49); AST 23 U/L (17-59); African American GFR (CKD) >90 (>60 ml/min/1.73 sqM); Albumin 4.1 g/dL (3.5-5.0); Alkaline Phosphatase 116 U/L (38-126); Anion Gap 9 mmol/L; Blood Urea Nitrogen 14 mg/dL (9-20); Calcium 9.1 mg/dL (8.4-10.2); Carbon Dioxide 31 mmol/L (22-30); Chloride 97 mmol/L (98-107); Glucose 90 mg/dL (74-99); Lipase 84 U/L (23-300); Non-African American GFR(CKD) 86 (>60 ml/min/1.73 sqM); Potassium 4.3 mmol/L (3.5-5.1); Sodium 137 mmol/L (137-145); Total Bilirubin 0.7 mg/dL (0.2-1.3); Total Protein 7.3 g/dL (6.3-8.2)
[2022-12-12 15:46] LABS: Appearance,Urine Clear (Clear); Bilirubin,Urine Negative (Negative); Blood,Urine Negative (Negative); Color,Urine Light Yellow; Glucose,Urine (UA) Negative (Negative); Ketones,Urine Negative (Negative); Leukocyte Esterase,Urine Negative (Negative); Nitrite,Urine Negative (Negative); PH, Urine 6.5 (5.0-8.0); Protein,Urine Negative (Negative); Specific Gravity,Urine 1.005 (1.001-1.035); Urobilinogen,Urine <2.0 mg/dL (<2.0)
--- NOTE | 2022-12-12 15:58 | US ---
EXAMINATION TYPE: US groin RT DATE OF EXAM: 12/12/2022 COMPARISON: PET scan 11/25/2022 CLINICAL INDICATION: Male, 62 years old with history of pain; Pt states pain and bulging to right mary in extending into his right scrotum/ known hernia visualized on PET scan FINDINGS: [facility] notes: Many peristalsing bowel loops within right scrotum, area= 8.4 x 3.7 x 6.7 cm T his is consistent with known hernia and pt's pain and enlarged right scrotum IMPRESSION: Sizable right inguinal hernia. Suspect the ileocecal junction to be herniated into the scrotal sac. P eristalsing loops are present as well as a small hydrocele.
[2022-12-12 16:08] LABS: Basophils % (A) 0 %; Eosinophils # (A) 0.2 k/uL (0-0.7); Eosinophils % (A) 4 %; HCT 43.4 % (39.0-53.0); HGB 14.1 gm/dL (13.0-17.5); Lymphocytes % (A) 16 %; MCH 28.2 pg (25.0-35.0); MCHC 32.5 g/dL (31.0-37.0); MCV 86.8 fL (80.0-100.0); Mean Platelet Volume 7.9; Monocytes # (A) 0.8 k/uL (0-1.0); Monocytes % (A) 14 %; Neutrophils # (A) 3.6 k/uL (1.3-7.7); Neutrophils % (A) 62 %; Platelet Count 268 k/uL (150-450); RDW 13.7 % (11.5-15.5); WBC 5.9 k/uL (3.8-10.6)
--- NOTE | 2022-12-12 16:34 | ED ---
Abdominal Pain HPI - General Chief Complaint: Abdominal Pain Stated Complaint: Groin Pain Time Seen by Provider: 12/12/22 14:33 Source: patient Mode of arrival: ambulatory Limitations: no limitations - History of Present Illness Initial Comments: Patient is a 62-year-old male who presents to the emergency department for groin pain. Patient states he has a hernia which he is usually able to reduce. Patient has not tried to reduce it today due to increased pain. 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 Patient has gotten surgery on a left inguinal hernia previously he cannot remember his surgeon. He denies fever, chills, nausea, vomiting. Denies abdominal pain, burning with urination, blood in the urine, penile discharge. No concern for sexually transmitted infections. - Related Data Previous Rx's Medication Instructions Recorded Amiodarone [Cordarone] 400 mg PO BID #70 tab 10/21/22 Aspirin 81 mg PO DAILY tab 10/21/22 Atorvastatin [Lipitor] 40 mg PO DAILY #90 tab 10/21/22 Famotidine [Pepcid] 20 mg PO BID #60 tab 10/21/22 Ipratropium-Albuterol Nebulize 3 ml INHALATION RT-QID #1 each 10/21/22 [Duoneb 0.5 mg-3 mg/3 ml Soln] lisinopriL [Zestril] 20 mg PO DAILY #90 tab 10/21/22 predniSONE 10 mg PO DIRECTED #40 tab 10/21/22 Ibuprofen [Motrin] 800 mg PO Q8HR PRN #30 tab 12/12/22 Allergies Allergy/AdvReac Type Severity Reaction Status Date / Time No Known Allergies Allergy Verified 10/27/22 11:06 Review of Systems ROS Statement: Those systems with pertinent positive or pertinent negative responses have been documented in the HPI. ROS Other: All systems not noted in ROS Statement are negative. Past Medical History Past Medical History: GERD/Reflux, Hyperlipidemia, Hypertension, Osteoarthritis (OA) Additional Past Medical History / Comment(s): RECENT INPT FOR VTACH AND MASS ON LT LUNG History of Any Multi-Drug Resistant Organisms: None Reported Past Surgical History: Hernia Repair, Tonsillectomy Additional Past Surgical History / Comment(s): COLONOSCOPY , rt cataract 11/03/21 Past Anesthesia/Blood Transfusion Reactions: No Reported Reaction Past Psychological History: No Psychological Hx Reported Smoking Status: Current every day smoker - Past Family History Mother Family Medical History: No Reported History General Exam Limitations: no limitations General appearance: alert, in no apparent distress Head exam: Present: atraumatic, normocephalic, normal inspection Eye exam: Present: normal appearance, PERRL, EOMI. Absent: scleral icterus, conjunctival injection, periorbital swelling Respiratory exam: Present: normal lung sounds bilaterally. Absent: respiratory distress, wheezes, rales, rhonchi, stridor Cardiovascular Exam: Present: regular rate, normal rhythm, normal heart sounds. Absent: systolic murmur, diastolic murmur, rubs, gallop, clicks GI/Abdominal exam: Present: soft, normal bowel sounds. Absent: distended, tenderness, guarding, rebound, rigid exam: Present: scrotal swelling (No erythema or other skin changes) Neurological exam: Present: alert, oriented X3, CN II-XII intact Psychiatric exam: Present: normal affect, normal mood Skin exam: Present: warm, dry, intact, normal color. Absent: rash Course Vital Signs 12/12/22 12/12/22 13:29 16:56 Temperature 98.2 F 97.6 F Pulse Rate 75 83 Respiratory 16 16 Rate Blood Pressure 124/65 170/77 O2 Sat by Pulse 98 97 Oximetry Medical Decision Making - Medical Decision Making Was pt. sent in by a medical professional or institution ([facility], [employer], urgent care, hospital, or [place] health care facility...) When possible be specific @ -No Did you speak to anyone other than the patient for history (EMS, parent, family, police, friend...)? What history was obtained from this source @ -No Did you review nursing and triage notes (agree or disagree)? Why? @ -I reviewed and agree with nursing and triage notes Were old charts reviewed (outside hosp., previous admission, EMS record, old EKG, old radiological studies, urgent care reports/EKG's, [place] health care facility records)? Report findings @ -No old charts were reviewed Differential Diagnosis (chest pain, altered mental status, abdominal pain women, abdominal pain men, vaginal bleeding, weakness, fever, dyspnea, syncope, headache, dizziness, GI bleed, back pain, seizure, CVA, palpatations, mental health)? @ - Inguinal he It is by me (3pts min.). @ -As above X-rays interpreted by me (1pt min.). @ -None done CT interpreted by me (1pt min.). @ -None done U/S interpreted by me (1pt. min.). @ -No. Ultrasound report shows sizable right inguinal hernia. Suspect ileocecal junction to be herniated into the scrotal sac. Persisting loops are present as well as a small hydrocele What testing was considered but not performed or refused? (CT, X-rays, U/S, labs)? Why? @ -None What meds were considered but not given or refused? Why? @ -None Did you discuss the management of the patient with other professionals (professionals i.e. , PA, [employer], lab, RT, psych nurse, social economist, corporate lawyer, teacher, sales promotion officer, manager rn case)? Give summary @ -No Was smoking cessation discussed for >3mins.? @ -No Was critical care preformed (if so, how long)? @ -No Were there social determinants of health that impacted care today? How? (Homelessness, low income, unemployed, alcoholism, drug addiction, transportation, low edu. Level, literacy, decrease access to med. care, skilled nursing, rehab)? @ -No Was there de-escalation of care discussed even if they declined (Discuss DNR or withdrawal of care, Hospice)? DNR status @ -No What co-morbidities impacted this encounter? (DM, HTN, Smoking, COPD, CAD, Cancer, CVA, ARF, Chemo, Hep., AIDS, mental health diagnosis, sleep apnea, morbid obesity)? @ -None Was patient admitted / discharged? Hospital course, mention meds given and r oute, prescriptions, significant lab abnormalities, going to OR and other pertinent info. @ - Discharged. Patient has right inguinal hernia which was easily reduced. No fever or vomiting. Labs unremarkable. Patient referred to general surgeon as hernia may continue to give him issues. He was given a work note for lifting restrictions until he sees general surgery. Undiagnosed new problem with uncertain prognosis? @ -No Drug Therapy requiring intensive monitoring for toxicity (Heparin, Nitro, Insulin, Cardizem)? @ -No Were any procedures done? @ -No Diagnosis/symptom? @ -Right inguinal hernia Acute, or Chronic, or Acute on Chronic? @ -Acute on chronic Uncomplicated (without systemic symptoms) or Complicated (systemic symptoms)? @ -Uncomplicated Side effects of treatment? @ -No Exacerbation, Progression, or Severe Exacerbation? @ -No Poses a threat to life or bodily function? How? (Chest pain, [place], [place], pneumonia, PE, COPD, DKA, ARF, appy, cholecystitis, CVA, Diverticulitis, Homicidal, Suicidal, threat to staff... and all critical care pts) @ -No Dr. Jean is my attending - Lab Data Result diagrams: 12/12/22 15:17 12/12/22 15:17 Lab Results 12/12/22 12/12/22 12/12/22 Range/Units 15:17 15:17 15:17 WBC 5.9 (3.8-10.6) k/uL RBC 5.00 (4.30-5.90) m/uL Hgb 14.1 (13.0-17.5) gm/dL Hct 43.4 (39.0-53.0) % MCV 86.8 (80.0-100.0) fL MCH 28.2 (25.0-35.0) pg MCHC 32.5 (31.0-37.0) g/dL RDW 13.7 (11.5-15.5) % Plt Count 268 (150-450) k/uL MPV 7.9 Neutrophils % 62 % Lymphocytes % 16 % Monocytes % 14 % Eosinophils % 4 % Basophils % 0 % Neutrophils # 3.6 (1.3-7.7) k/uL Lymphocytes # 1.0 (1.0-4.8) k/uL Monocytes # 0.8 (0-1.0) k/uL Eosinophils # 0.2 (0-0.7) k/uL Basophils # 0.0 (0-0.2) k/uL Sodium 137 (137-145) mmol/L Potassium 4.3 (3.5-5.1) mmol/L Chloride 97 L (98-107) mmol/L Carbon Dioxide 31 H (22-30) mmol/L Anion Gap 9 mmol/L BUN 14 (9-20) mg/dL Creatinine 0.94 (0.66-1.25) mg/dL Est GFR (CKD-EPI)AfAm >90 (>60 ml/min/1.73 sqM) Est GFR (CKD-EPI)NonAf 86 (>60 ml/min/1.73 sqM) Glucose 90 (74-99) mg/dL Plasma Lactic Acid Andrey 0.9 (0.7-2.0) mmol/L Calcium 9.1 (8.4-10.2) mg/dL Total Bilirubin 0.7 (0.2-1.3) mg/dL AST 23 (17-59) U/L ALT 18 (4-49) U/L Alkaline Phosphatase 116 (38-126) U/L Total Protein 7.3 (6.3-8.2) g/dL Albumin 4.1 (3.5-5.0) g/dL Lipase 84 (23-300) U/L Urine Color Urine Appearance (Clear) Urine pH (5.0-8.0) Ur Specific [place] (1.001-1.035) Urine Protein (Negative) Urine Glucose (UA) (Negative) Urine Ketones (Negative) Urine Blood (Negative) Urine Nitrite (Negative) Urine Bilirubin (Negative) Urine Urobilinogen (<2.0) mg/dL Ur Leukocyte Esterase (Negative) 12/12/22 Range/Units 15:27 WBC (3.8-10.6) k/uL RBC (4.30-5.90) m/uL Hgb (13.0-17.5) gm/dL Hct (39.0-53.0) % MCV (80.0-100.0) fL MCH (25.0-35.0) pg MCHC (31.0-37.0) g/dL RDW (11.5-15.5) % Plt Count (150-450) k/uL MPV Neutrophils % % Lymphocytes % % Monocytes % % Eosinophils % % Basophils % % Neutrophils # (1.3-7.7) k/uL Lymphocytes # (1.0-4.8) k/uL Monocytes # (0-1.0) k/uL Eosinophils # (0-0.7) k/uL Basophils # (0-0.2) k/uL Sodium (137-145) mmol/L Potassium (3.5-5.1) mmol/L Chloride (98-107) mmol/L Carbon Dioxide (22-30) mmol/L Anion Gap mmol/L BUN (9-20) mg/dL Creatinine (0.66-1.25) mg/dL Est GFR (CKD-EPI)AfAm (>60 ml/min/1.73 sqM) Est GFR (CKD-EPI)NonAf (>60 ml/min/1.73 sqM) Glucose (74-99) mg/dL Plasma Lactic Acid Andrey (0.7-2.0) mmol/L Calcium (8.4-10.2) mg/dL Total Bilirubin (0.2-1.3) mg/dL AST (17-59) U/L ALT (4-49) U/L Alkaline Phosphatase (38-126) U/L Total Protein (6.3-8.2) g/dL Albumin (3.5-5.0) g/dL Lipase (23-300) U/L Urine Color Light Yellow Urine Appearance Clear (Clear) Urine pH 6.5 (5.0-8.0) Ur Specific [place] 1.005 (1.001-1.035) Urine Protein Negative (Negative) Urine Glucose (UA) Negative (Negative) Urine Ketones Negative (Negative) Urine Blood Negative (Negative) Urine Nitrite Negative (Negative) Urine Bilirubin Negative (Negative) Urine Urobilinogen <2.0 (<2.0) mg/dL Ur Leukocyte Esterase Negative (Negative) Disposition Clinical Impression: Right inguinal hernia Disposition: HOME SELF-CARE Condition: Good Instructions (If sedation given, give patient instructions): Inguinal Hernia (ED) Additional Instructions: Take medication as directed. Follow-up with general surgeon in 1-2 days. Return to the emergency department if you experience new, concerning, or worsening symptoms. Prescriptions: Ibuprofen [Motrin] 800 mg PO Q8HR PRN #30 tab PRN Reason: Pain Is patient prescribed a controlled substance at d/c from ED?: No Referrals: None,Stated [Primary Care Provider] - 1-2 days
[2022-12-12 16:58] VITALS: BP 170/77; PULSE 83; TEMP 97.6
== END 2022-12-12 16:58 | disposition home or self-care (01) ==
LOC: EC 13:14
DX: K40.90 Unilateral inguinal hernia, without obstruction or gangrene, not specified as recurrent (principal); I10 Essential (primary) hypertension; F17.200 Nicotine dependence, unspecified, uncomplicated
CPT/HCPCS: 36415; 80053; 83605; 83690; 85025; 81003; 76882; 99284; 96374; 96361; J1885

== ENCOUNTER → 2022-12-16 | Outpatient (CLI) | payer OTHER ==
--- NOTE | 2022-12-17 00:03 | MR ---
EXAMINATION TYPE: MR brain wo/w con DATE OF EXAM: 12/16/2022 COMPARISON: None HISTORY: Lung cancer CONTRAST: Performed utilizing 8.5 mL intravenous Gadavist gadolinium contrast. TECHNIQUE: Multiplanar, multiecho imaging on a 3.0 Desi magnet is performed through the brain. Stud y is performed within 24 hours of arrival to the hospital. The craniovertebral junction is normal. The pituitary is normal. Diffusion-weighted imaging is performed. No abnormal hyperintensity is present to suggest an acute i ntracranial infarct or acute ischemic change. Couple of punctate subcortical white matter changes are within the right parietal lobe. These are non specific but could be related to microvascular ischemic changes. Ventricles and sulci are appropriate for the patient age. No suspicious enhancement is evident There is opacification of the maxillary sinuses. There is thickening through the paranasal sinuses. R ight septal deviation is present. Sphenoid sinuses and ethmoid air cells have thickening. There is fi lling of the frontal sinuses. Clinical correlation for loera sinusitis and nasal polyposis is recommend ed. IMPRESSIONS: 1. No suspicious changes to suggest intracranial metastasis. 2. Opacification through the paranasal sinuses. Correlate for nasal polyposis or pansinusitis.
== END | disposition home or self-care (01) ==
LOC: RADMRIMAIN 19:46
PROVIDERS: ATTEND Internal Medicine Hematology & Oncology
DX: C34.32 Malignant neoplasm of lower lobe, left bronchus or lung (principal); J34.89 Other specified disorders of nose and nasal sinuses
CPT/HCPCS: 70553; A9585

== ENCOUNTER 2022-12-21 11:27 | Day surgery (SDC) | payer OTHER ==
[2022-12-20 16:00] VITALS: BMI 24.0
[~2022-12-21 11:27] MED LIST changes: +DEXAMETHASONE SOD PHOSPHATE 4 MG/ML 1 ML VIAL IV ONE; +HYDROmorphone 0.5 MG/0.5 ML SYRINGE IVP PRN; +LIDOCAINE 1% (10MG/ML) FOR IV START INTRADERMA PRN; -LIDOCAINE VISCOUS 300 MG/15 ML CUP MUCOUS MEM ONE; +ONDANSETRON 4 MG/2 ML VIAL IVP ONE; -SODIUM CHLORIDE 0.9% 1,000 ML IV SCH; +droPERidol 5 MG/2 ML VIAL IVP ONE
[2022-12-21 12:48] LABS: Glucose,Whole Blood 91 mg/dL (70-110)
[2022-12-21] MEDS ORDERED: MIDAZOLAM 2 MG/2 ML VIAL IV ONE (13:09)
[2022-12-21] MEDS ORDERED: SUCCINYLCHOLINE CHLORIDE 200 MG/10 ML VIAL IV ONE (15:41)
[2022-12-21] MEDS ORDERED: GLYCOPYRROLATE 0.2 MG/ML 2 ML VIAL ONE (15:41)
[2022-12-21] MEDS ORDERED: ETOMIDATE 2 MG/ML 10 ML VIAL ONE (15:41)
[2022-12-21] MEDS ORDERED: MIDAZOLAM 2 MG/2 ML VIAL ONE (15:41)
[2022-12-21] MEDS ORDERED: ROCURONIUM 10 MG/ML (5 ML VIAL) IV ONE (15:41)
[2022-12-21] MEDS ORDERED: LIDOCAINE 2% INJ 20 MG/ML (2 ML VIAL) ONE (15:41)
[2022-12-21] MEDS ORDERED: PHENYLEPHRINE-0.9% NACL SYG 1,000 MCG/10 ML SYRINGE ONE (15:41)
[2022-12-21] MEDS ORDERED: NEOSTIGMINE 1 MG/ML 10 ML VIAL ONE (15:41)
[2022-12-21] MEDS ORDERED: fentaNYL (PF) 50 MCG/ML 2 ML AMP ONE (15:41)
[2022-12-21] MEDS ORDERED: LACTATED RINGERS 1,000 ML IV ONE (16:15)
[2022-12-21 16:46] VITALS: TEMP 97.4
--- NOTE | 2022-12-21 16:52 | P.OP ---
Date of Procedure: 12/21/22 Preoperative Diagnosis: Lung Cancer Postoperative Diagnosis: Same Procedure(s) Performed: Mediastinoscopy with biopsy Anesthesia: ERNESTO Surgeon: Jose Roberto Lu Psychological Assistant #1: Aylin Davis Estimated Blood Loss (ml): 10 Pathology: other (Level 4L LN) Condition: stable Disposition: PACU Indications for Procedure: This patient is a 62 year-old male with an extensive smoking history who was found to have a 3cm mass in the ISABEL. PET/CT scan was performed which showed some faint activity in the 4L lymph node station. He underwent EBUS which revealed adequate negative FNA of station 4R and 7 however the 4L specimen was inadequate. I offered mediastinoscopy with frozen section analysis with possible lobectomy in the same setting however the patient adamantly refused lobectomy. He agreed to mediastinoscopy to stage mediastinum. Operative Findings: 4L station biopsied Description of Procedure: The patient was brought back to the operating room and placed in the supine position. He was intubated with a single lumen tube and underwent general anesthesia. A shoulder roll was placed and his neck was extended. His neck and chest were prepped and draped in the usual sterile fashion. Antibiotics were given. A 2cm incision was made one finger breadth above the sternal notch. This was carried down through the subcutaneous tissues and strap muscle using electrocautery. Once the pre-tracheal fascia was encountered a scissor was used to enter the pre-tracheal plane. The estefania was inserted down on top of the trachea to create a space. The video mediastinoscope was inserted and directed toward the 4R region. There was an obvious lymph node there. Aspiration was negative was blood. Several pieces of the lymph node was biopsied. The area was packed and there was no evidence of bleeding. A small piece of surgicel was left in the area and the wound was closed in two layers using 2-0 vicryl and 4-0 monocryl.
[2022-12-21 17:01] VITALS: RESP 16
[2022-12-21] MEDS ORDERED: hydrALAZINE HCL 20 MG/ML 1 ML VIAL IVP ONE (17:50)
[2022-12-21 18:12] VITALS: BP 164/81; PULSE 62
== END 2022-12-21 18:30 | disposition home or self-care (01) ==
LOC: OR 11:27
PROVIDERS: ATTEND Thoracic Surgery (Cardiothoracic Vascular Surgery)
DX: C34.12 Malignant neoplasm of upper lobe, left bronchus or lung (principal); I10 Essential (primary) hypertension; E78.5 Hyperlipidemia, unspecified; F17.210 Nicotine dependence, cigarettes, uncomplicated; K21.9 Gastro-esophageal reflux disease without esophagitis; Z79.82 Long term (current) use of aspirin; Z79.899 Other long term (current) drug therapy; Z90.89 Acquired absence of other organs; Z98.890 Other specified postprocedural states
CPT/HCPCS: 39402; 88305; 88342; J2250; J0330; J0360; J1100; J2710; J2405; J0690; J3010; J2370; J2001

== ENCOUNTER → 2023-01-12 | Outpatient (CLI) | payer OTHER ==
[~2023-01-12] MED LIST changes: -DEXAMETHASONE SOD PHOSPHATE 4 MG/ML 1 ML VIAL IV ONE; -HYDROmorphone 0.5 MG/0.5 ML SYRINGE IVP PRN; -LACTATED RINGERS 1,000 ML IV SCH; -LIDOCAINE 1% (10MG/ML) FOR IV START INTRADERMA PRN; -ONDANSETRON 4 MG/2 ML VIAL IVP ONE; +REGADENOSON 0.4 MG/5 ML SYRINGE IV PRN; -droPERidol 5 MG/2 ML VIAL IVP ONE
--- NOTE | 2023-01-12 11:22 | NM ---
EXAMINATION TYPE: NM stress lexiscan cardiolite DATE OF EXAM: 01/12/2023 COMPARISON: NONE CLINICAL INDICATION: Male, 62 years old with history of R06.02; TECHNIQUE: After the intravenous administration of 9.6 mCi Tc 99m Sestamibi - Cardiolite resting SPE CT images acquired 45 minutes post injection. The patient received 0.4mg Lexiscan, 25.7 mCi Tc 99m Sestamibi - Stress images obtained [address] injection FINDINGS: Review of stress and rest SPECT images demonstrates predominantly fixed perfusion defect with slight worsening on stress imaging involving the cardiac apex and apical inferior wall as well as a apical s eptal region. Stress-induced ischemia is not excluded. Gated analysis shows hypokinesia with an estim ated left ventricular ejection fraction of 33 %. IMPRESSION: Stress-induced ischemia is not excluded.
--- NOTE | 2023-01-12 16:10 | CA ---
Lexiscan Nuclear Stress Test Report Name: Daniel Delatorre Exam Date: 01/12/2023 09:21 Exam Location: [facility] Stress Ht (in): 76 Wt (lb): 190 BSA: 2.17 Ordering Phys: Mango Lu MD Referring Phys: MANGO LU,, Technologist: Jose Miguel Krause Age: 62 Gender: M : 1960 Procedure CPT: Indications: r06.02 ICD-10 Codes: Patient History: Medications: LISINOPRIL, ATORVASTATIN Meds past 24 hrs: Pretest Chest Pain: STRESS TEST Lexiscan Protocol Exercise Duration (min:sec): 02:[address] Depressions (mm): Angina Score: James Score: Resting HR (bpm): 71 Peak HR (bpm): 77 Resting BP (mmHg): 130 / 80 Peak BP (mmHg): 132 / 78 MPHR: 157 Target HR: 133 % MPHR: 49 METS: 1.0 Total Dose: Peak Dose: Atropine: Double Product: 46255 BP Response: Stress Termination: PROTOCOL COMPLETE Stress Symptoms: NO SYMPTOMS Stress Summary: ECG ANALYSIS Resting ECG: Stress ECG: CONCLUSIONS At baseline EKG showed normal sinus rhythm with bigeminy with right bundle branch block and nonspecific ST depressions V3 V4 V5 V6. Patient recieved IV infusion of Lexiscan 0.4mg and at peak infusion EKG showed no significant change from baseline. Conclusions: 1. Nonspecific stress EKG portion secondary baseline EKG abnormalities 2. Nuclear imaging to be reported separately. Dr. Joe Long DO (Electronically Signed) Final Date: 12 January 2023 16:09
== END | disposition home or self-care (01) ==
LOC: RADNMMAIN 07:40
PROVIDERS: ATTEND Thoracic Surgery (Cardiothoracic Vascular Surgery)
DX: R06.02 Shortness of breath (principal); R94.31 Abnormal electrocardiogram [ECG] [EKG]
CPT/HCPCS: 93017; 78452; A9500; J2785

== ENCOUNTER → 2023-08-31 | Outpatient (CLI) | payer OTHER ==
--- NOTE | 2023-09-03 10:29 | PE ---
EXAMINATION TYPE: PET CT fusion skull to thigh DATE OF EXAM: 08/31/2023 CLINICAL INDICATION:Male, 62 years old with history of Z87.891 PERSONAL HISTORY OF NICOTINE DEPENDENC E; TECHNIQUE: Following the intravenous administration of 10.58 mCi of F-18 FDG, whole body images are performed from the skull base to the midthigh. Images are reviewed on the computer in the coronal, axial, and sagittal planes. Reconstructed rotating images are created on independent workstation and reviewed on the computer. A non-contrast CT is performed in conjunction with the PET scan. Glucose level 85 mg/dL CT DLP: 361 mGycm, Automated exposure control for dose reduction was used. COMPARISON: CT None, PET/CT 11/25/2022. FINDINGS: Mediastinal SUV mean is 1.8. Hepatic parenchyma SUV mean is 2.0. SKULL BASE AND NECK: Paranasal sinus disease with opacification of the paranasal sinuses increased metabolic activity max SUV on the right 7.3 and on the left 5.6. CHEST, MEDIASTINUM, AND HILAR REGION: * Left upper lung mass measuring 2.2 x 2.0 cm, previously 3.5 x 3.0 cm , 3.3 x 2.5 cm. max SUV 3.4, previously 7.4 * AP window lymph node SUV 3.1, previously 2.4 measuring similarly at 10 mm in short axis. * Other lymph nodes with mild FDG activity identified including right low paratracheal max exiting t he 3.4 right patient and lymph node max SUV 7.5, subcarinal max SUV 3.5. * Right axillary lymph nodes which have mild uptake max SUV 3.0. * Visually posttreatment changes to the left chest wall with mild uptake along the soft tissues just superficial to the ribs max 3.7 posteriorly and 3.0 more anterior laterally. ABDOMEN AND PELVIS: No suspicious radiotracer activity. OSSEOUS STRUCTURES: No suspicious radiotracer activity. OTHER CT: Atherosclerosis of the arterial vasculature. Right. Inguinal hernia containing loops of sma ll bowel and colon. No evidence of obstruction. Prostate gland is enlarged measuring up to 5.1 cm in transverse dimension. IMPRESSION: 1. Decrease in size and FDG activity of left upper lung mass the AP window lymph node does have mild mildly increased FDG activity. Which could be partially due to differences in technique versus persi stent malignancy. Additional mediastinal lymph nodes with mild FDG activity present which are indeter minate unclear at this time of this reactive lymph nodes to posttreatment change versus progression o f disease.. 2. Severe paranasal sinus disease.
== END | disposition home or self-care (01) ==
LOC: RADPETMAIN 13:40
PROVIDERS: ATTEND Internal Medicine Hematology & Oncology
DX: J34.89 Other specified disorders of nose and nasal sinuses (principal); R91.8 Other nonspecific abnormal finding of lung field; C34.32 Malignant neoplasm of lower lobe, left bronchus or lung; Z87.891 Personal history of nicotine dependence
CPT/HCPCS: 78815; A9552

== ENCOUNTER 2023-11-12 16:36 | Emergency (ER) | payer OTHER ==
--- NOTE | 2023-11-12 17:35 | ED ---
General Adult HPI - General Chief complaint: Extremity Injury, Lower Stated complaint: Right foot pain/swelling Time Seen by Provider: 11/12/23 16:52 Source: patient Mode of arrival: wheelchair Limitations: physical limitation - History of Present Illness Initial comments: 63-year-old male presenting to the ED with a chief complaint of right lower extremity swelling. Patient states for the past week or so has noticed pain of his foot and swelling of his right lower leg and foot. Reports that he initially noticed this after starting to wear new boots. For this, he went to the [facility] who reportedly had x-rays performed which she reports were unremarkable. Reports he was started on furosemide. Despite taking this he reports no change in pain or swelling thus prompting presentation to the ED for further evaluation. He reports that the pain and swelling since onset has not necessarily worsened however is still ongoing. Reports pain especially of the arch of his foot with weightbearing. Reports when he is nonweightbearing it does not bother him. Denies fever or chills. Patient is a smoker. Reports smoking history for 40 years or he smoked a pack to one and half a packs per day but has been cutting down to half a pack lately. Denies chest pains or shortness of breath. Denies abdominal pain. Denies changes in bowel or bladder habits. No other complaints at this time. Of note, patient does report history of redness to his right foot and ankle. This has not changed recently. He also does note a small bump to the medial surface of his right lower leg which has been there reportedly for a while which has also not changed recently. - Related Data Home Medications Medication Instructions Recorded Confirmed Aspirin 81 mg PO DAILY 12/20/22 12/20/22 lisinopriL [Zestril] 20 mg PO QAM 12/20/22 12/20/22 Previous Rx's Medication Instructions Recorded Atorvastatin [Lipitor] 40 mg PO DAILY #90 tab 10/21/22 Ipratropium-Albuterol Nebulize 3 ml INHALATION RT-QID #1 each 10/21/22 [Duoneb 0.5 mg-3 mg/3 ml Soln] Ibuprofen [Motrin] 800 mg PO Q8HR PRN #30 tab 12/12/22 Amiodarone [Cordarone] 200 mg PO BID #0 12/21/22 Cephalexin [Keflex] 500 mg PO Q6HR 5 Days #20 cap 11/13/23 Allergies Allergy/AdvReac Type Severity Reaction Status Date / Time No Known Allergies Allergy Verified 11/12/23 16:47 Review of Systems ROS Statement: Those systems with pertinent positive or pertinent negative responses have been documented in the HPI. ROS Other: All systems not noted in ROS Statement are negative. Past Medical History Past Medical History: GERD/Reflux, Hyperlipidemia, Hypertension, Osteoarthritis (OA) Additional Past Medical History / Comment(s): INPT 10-20-22 FOR VTACH AND MASS ON LT LUNG History of Any Multi-Drug Resistant Organisms: None Reported Past Surgical History: Hernia Repair, Tonsillectomy Additional Past Surgical History / Comment(s): COLONOSCOPY , rt cataract 11/03/21,bronchoscopy Past Anesthesia/Blood Transfusion Reactions: No Reported Reaction Additional Past Anesthesia/Blood Transfusion Reaction / Comment(s): no hx blood transfusion Past Psychological History: No Psychological Hx Reported Smoking Status: Current every day smoker Past Alcohol Use History: None Reported Past Drug Use History: None Reported - Past Family History Mother Family Medical History: No Reported History Father Family Medical History: Renal Disease General Exam Limitations: physical limitation General appearance: alert, in no apparent distress Eye exam: Present: normal appearance Neck exam: Present: normal inspection Respiratory exam: Present: normal lung sounds bilaterally Cardiovascular Exam: Present: regular rate GI/Abdominal exam: Present: soft Extremities exam: Present: other (Strength and sensation equal intact in bilateral lower extremities. DP/PT pulses palpable bilaterally. Right lower leg and foot do show some swelling. Medial aspect of the right ankle over the medial malleolus shows some erythema. ) Right Lower Leg exam: Present: erythema (Proximal to this there is a indurated mass which also has some overlying erythema. Right lower extremity does feel warmer compared to the left.) Neurological exam: Present: alert, oriented X3 Skin exam: Present: warm, dry Course Vital Signs 11/12/23 11/12/23 11/12/23 16:39 18:37 19:15 Temperature 97.7 F Pulse Rate 65 95 83 Respiratory 18 18 18 Rate Blood Pressure 174/70 122/64 126/71 O2 Sat by Pulse 95 99 99 Oximetry 11/12/23 11/12/23 11/12/23 21:00 22:00 23:00 Temperature Pulse Rate 88 85 72 Respiratory 16 16 16 Rate Blood Pressure 111/81 126/70 122/56 O2 Sat by Pulse 99 98 99 Oximetry Medical Decision Making - Medical Decision Making Was pt. sent in by a medical professional or institution ([facility], [employer], urgent care, hospital, or skilled nursing...) When possible be specific @ -No Did you speak to anyone other than the patient for history (EMS, parent, family, police, friend...)? What history was obtained from this source @ -No Did you review nursing and triage notes (agree or disagree)? Why? @ -I reviewed and agree with nursing and triage notes Were old charts reviewed (outside hosp., previous admission, EMS record, old EKG, old radiological studies, urgent care reports/EKG's, skilled nursing records)? Report findings @ -No old charts were reviewed Differential Diagnosis (chest pain, altered mental status, abdominal pain women, abdominal pain men, vaginal bleeding, weakness, fever, dyspnea, syncope, headache, dizziness, GI bleed, back pain, seizure, CVA, palpatations, mental health, musculoskeletal)? @ -Differential Musculoskeletal Muscular strain, contusion, ligament sprain, fracture, arthritis, septic ar thritis, bursitis, cellulitis, muscle spasm, nerve compression, DVT, arterial occlusion, herpes zoster, electrolyte abnormality, tumor.... This is not meant to be in all inclusive list EKG interpreted by me (3pts min.). @ -None X-rays interpreted by me (1pt min.). @ -Chest x-ray inter by me which reveals no evidence of acute process Foot and ankle x-ray interpreted me showing soft tissue swelling without evidence of acute finding. CT interpreted by me (1pt min.). @ -None done U/S interpreted by me (1pt. min.). @ -Ultrasound interpreted me which revealed no evidence of DVT. What testing was considered but not performed or refused? (CT, X-rays, U/S, labs)? Why? @ -None What meds were considered but not given or refused? Why? @ -None Did you discuss the management of the patient with other professionals (professionals i.e. [facility], [employer], lab, RT, psych nurse, social staff worker, clothing pattern preparer, teacher, search and rescue officer, case aide)? Give summary @ -No Was smoking cessation discussed for >3mins.? @ -No Was critical care preformed (if so, how long)? @ -No Were there social determinants of health that impacted care today? How? (Jordana elessness, low income, unemployed, alcoholism, drug addiction, transportation, low edu. Level, literacy, decrease access to med. care, fpc, rehab)? @ -No Was there de-escalation of care discussed even if they declined (Discuss DNR or withdrawal of care, Hospice)? DNR status @ -No What co-morbidities impacted this encounter? (DM, HTN, Smoking, COPD, CAD, Cancer, CVA, ARF, Chemo, Hep., AIDS, mental health diagnosis, sleep apnea, morbid obesity)? @ -None Was patient admitted / discharged? Hospital course, mention meds given and route, prescriptions, significant lab abnormalities, going to OR and other pertinent info. @ -Discharge 63-year-old male presented to the ED with complaints of right lower extremity swelling. This has been an ongoing issue for the past week or so. Was seen at the [facility] and prescribed furosemide. Despite taking this reports no change in symptoms. On examination there is some swelling 1+ pitting edema of the right lower extremity. There are some areas of redness and warmth however patient reports that this has been an ongoing issue and palpation does not reveal significant tenderness to this. Patient reports pain is mainly in the arch of his foot. Imaging studies revealed no evidence of acute finding. Laboratory studies all largely unremarkable. Patient provided prescription for Keflex to cover for infection due to the areas of erythema. Discharged home in stable condition with instructions to follow-up with PCP. Discussed return precaution with patient who verbalized agreement. Undiagnosed new problem with uncertain prognosis? @ -No Drug Therapy requiring intensive monitoring for toxicity (Heparin, Nitro, Insulin, Cardizem)? @ -No Were any procedures done? @ -No Diagnosis/symptom? @ -Right lower extremity swelling Acute, or Chronic, or Acute on Chronic? @ -Acute Uncomplicated (without systemic symptoms) or Complicated (systemic symptoms)? @ -Uncomplicated Side effects of treatment? @ -No Exacerbation, Progression, or Severe Exacerbation? @ -No Poses a threat to life or bodily function? How? (Chest pain, USA, MD, pneumonia, PE, COPD, DKA, ARF, appy, cholecystitis, CVA, Diverticulitis, Homicidal, Suicidal, threat to staff... and all critical care pts) @ -No - Lab Data Result diagrams: 11/12/23 17:46 11/12/23 17:46 Lab Results 11/12/23 11/12/23 11/12/23 Range/Units 17:46 17:46 18:41 WBC 9.4 (3.8-10.6) k/uL RBC 4.38 (4.30-5.90) m/uL Hgb 13.2 (13.0-17.5) gm/dL Hct 40.9 (39.0-53.0) % MCV 93.4 (80.0-100.0) fL MCH 30.2 (25.0-35.0) pg MCHC 32.3 (31.0-37.0) g/dL RDW 13.2 (11.5-15.5) % Plt Count 322 (150-450) k/uL MPV 8.1 Neutrophils % (Manual) 86 % Lymphocytes % (Manual) 8 % Monocytes % (Manual) 6 % Neutrophils # (Manual) 8.08 H (1.3-7.7) k/uL Lymphocytes # (Manual) 0.75 L (1.0-4.8) k/uL Monocytes # (Manual) 0.56 (0-1.0) k/uL Nucleated RBCs 0 (0-0) /100 WBC Manual Slide Review Performed Rouleaux Present Sodium 139 (137-145) mmol/L Potassium 4.0 (3.5-5.1) mmol/L Chloride 100 (98-107) mmol/L Carbon Dioxide 33 H (22-30) mmol/L Anion Gap 6 mmol/L BUN 21 H (9-20) mg/dL Creatinine 0.94 (0.66-1.25) mg/dL Est GFR (CKD-EPI)AfAm >90 (>60 ml/min/1.73 sqM) Est GFR (CKD-EPI)NonAf 86 (>60 ml/min/1.73 sqM) Glucose 78 (74-99) mg/dL Calcium 9.5 (8.4-10.2) mg/dL Total Bilirubin 1.1 (0.2-1.3) mg/dL AST 29 (17-59) U/L ALT 21 (4-49) U/L Alkaline Phosphatase 115 (38-126) U/L NT-Pro-B Natriuret Pep 986 pg/mL Total Protein 7.1 (6.3-8.2) g/dL Albumin 3.5 (3.5-5.0) g/dL Urine Color Yellow Urine Appearance Clear (Clear) Urine pH 6.0 (5.0-8.0) Ur Specific [place] 1.026 (1.001-1.035) Urine Protein 1+ H (Negative) Urine Glucose (UA) Negative (Negative) Urine Ketones Negative (Negative) Urine Blood Negative (Negative) Urine Nitrite Negative (Negative) Urine Bilirubin Negative (Negative) Urine Urobilinogen >12.0 (<2.0) mg/dL Ur Leukocyte Esterase Negative (Negative) Urine RBC <1 (0-5) /hpf Urine WBC 1 (0-5) /hpf Urine Mucus Many H (None) /hpf Disposition Clinical Impression: Leg swelling Disposition: HOME SELF-CARE Condition: Good Additional Instructions: Please return to the Emergency Department if symptoms worsen or any other concerns. Please follow-up with your primary care provider. Prescriptions: Cephalexin [Keflex] 500 mg PO Q6HR 5 Days #20 cap Is patient prescribed a controlled substance at d/c from ED?: No Referrals: [facility],Clinic [Primary Care Provider] - 1-2 days Time of Disposition: 23:45
[2023-11-12 18:09] LABS: ALT 21 U/L (4-49); AST 29 U/L (17-59); African American GFR (CKD) >90 (>60 ml/min/1.73 sqM); Albumin 3.5 g/dL (3.5-5.0); Alkaline Phosphatase 115 U/L (38-126); Anion Gap 6 mmol/L; Blood Urea Nitrogen 21 mg/dL (9-20); Calcium 9.5 mg/dL (8.4-10.2); Carbon Dioxide 33 mmol/L (22-30); Chloride 100 mmol/L (98-107); Glucose 78 mg/dL (74-99); Non-African American GFR(CKD) 86 (>60 ml/min/1.73 sqM); Sodium 139 mmol/L (137-145); Total Bilirubin 1.1 mg/dL (0.2-1.3); Total Protein 7.1 g/dL (6.3-8.2)
[2023-11-12 18:11] LABS: HCT 40.9 % (39.0-53.0); HGB 13.2 gm/dL (13.0-17.5); MCH 30.2 pg (25.0-35.0); MCHC 32.3 g/dL (31.0-37.0); MCV 93.4 fL (80.0-100.0); Mean Platelet Volume 8.1; Platelet Count 322 k/uL (150-450); RBC 4.38 m/uL (4.30-5.90); RDW 13.2 % (11.5-15.5); WBC 9.4 k/uL (3.8-10.6)
[2023-11-12 18:18] LABS: NT-Pro-B-Type Natriuretic Pept 986 pg/mL
[2023-11-12 18:29] LABS: Lymphocytes # (M) 0.75 k/uL (1.0-4.8); Monocytes # (M) 0.56 k/uL (0-1.0); Neutrophils # (M) 8.08 k/uL (1.3-7.7); Neutrophils % (M) 86 %; Nucleated Red Blood Cells 0 /100 WBC (0-0); Total Cells Counted 100
[2023-11-12 18:30] LABS: Rouleaux Present
[2023-11-12 18:49] LABS: Appearance,Urine Clear (Clear); Bilirubin,Urine Negative (Negative); Blood,Urine Negative (Negative); Color,Urine Yellow; Glucose,Urine (UA) Negative (Negative); Ketones,Urine Negative (Negative); Leukocyte Esterase,Urine Negative (Negative); Mucus,Urine Many /hpf; Nitrite,Urine Negative (Negative); Protein,Urine 1+ (Negative); RBC,Urine <1 /hpf (0-5); Specific Gravity,Urine 1.026 (1.001-1.035); Urobilinogen,Urine >12.0 mg/dL (<2.0); WBC,Urine 1 /hpf (0-5)
--- NOTE | 2023-11-12 20:00 | US ---
EXAMINATION TYPE: US venous doppler duplex LE RT DATE OF EXAM: 11/12/2023 6:55 PM COMPARISON: NONE CLINICAL INDICATION: Male, 63 years old with history of pain swelling foot and ankle; Swelling to rig ht foot SIDE PERFORMED: Right TECHNIQUE: The lower extremity deep venous system is examined utilizing real time linear array sonog rupert with graded compression, doppler sonography and color-flow sonography. VESSELS IMAGED: Common Femoral Vein Deep Femoral Vein Greater Saphenous Vein * Femoral Vein Popliteal Vein Small Saphenous Vein * Proximal Calf Veins (* superficial vessels) Right Leg: There is normal flow, compressibility, vascular waveforms. Negative for DVT IMPRESSION: No evidence of right lower extremity DVT.
--- NOTE | 2023-11-12 23:23 | XR ---
EXAMINATION TYPE: XR ankle complete RT DATE OF EXAM: 11/12/2023 6:18 PM CLINICAL INDICATION:Male, 63 years old with history of pain swelling foot and ankle; [facility] COMPARISON: None TECHNIQUE: The right ankle and right foot are imaged in frontal, lateral and oblique projections. FINDINGS: Osseous mineralization appears appropriate. No acute fracture lucency or significant malalignment. An kle mortise appears preserved. Talar dome looks intact. Soft tissues show swelling about the ankle. N o radiopaque foreign body is seen. Moderate degenerative changes are seen in the midfoot and forefoot. No acute fracture or dislocation is seen in the foot. There is a thin curvilinear wire-like structure suggesting foreign body seen projected near the level of the web interspace between the fourth and f ifth digits, which could be along the skin or subcutaneous. IMPRESSION: 1. Soft tissue swelling without evidence of acute fracture or dislocation of the ankle. 2. Moderate degenerative changes of the midfoot and forefoot. 3. No acute fracture or dislocation in the foot. 4. Possible wire-like foreign body between the fourth and fifth digits.
--- NOTE | 2023-11-12 23:24 | XR ---
EXAMINATION TYPE: XR foot complete RT DATE OF EXAM: 11/12/2023 6:20 PM CLINICAL INDICATION:Male, 63 years old with history of pain swelling foot and ankle; [facility] COMPARISON: None TECHNIQUE: The right ankle and right foot are imaged in frontal, lateral and oblique projections. FINDINGS: Osseous mineralization appears appropriate. No acute fracture lucency or significant malalignment. An kle mortise appears preserved. Talar dome looks intact. Soft tissues show swelling about the ankle. N o radiopaque foreign body is seen. Moderate degenerative changes are seen in the midfoot and forefoot. No acute fracture or dislocation is seen in the foot. There is a thin curvilinear wire-like structure suggesting foreign body seen projected near the level of the web interspace between the fourth and f ifth digits, which could be along the skin or subcutaneous. IMPRESSION: 1. Soft tissue swelling without evidence of acute fracture or dislocation of the ankle. 2. Moderate degenerative changes of the midfoot and forefoot. 3. No acute fracture or dislocation in the foot. 4. Possible wire-like foreign body between the fourth and fifth digits.
--- NOTE | 2023-11-12 23:43 | XR ---
EXAMINATION TYPE: XR chest 2V DATE OF EXAM: 11/12/2023 6:19 PM CLINICAL INDICATION:Male, 63 years old with history of r/o chf; [facility] COMPARISON: Chest x-ray 10/27/2022. PET/CT 08/31/2023. TECHNIQUE: XR chest 2V. Frontal and lateral views of the chest.. FINDINGS: Lines/Tubes/Devices: No indwelling lines are seen. Heart/mediastinum: Cardiac silhouette size is upper limits of normal, and appears slightly reduced re lative to the old exam. Mediastinum appears normal. No evidence of hilar enlargement. Pulmonary vascularity: Not increased, Lungs/Pleura: There is no evidence of pleural effusion, focal consolidation, or pneumothorax. Massli ke density left upper lobe laterally seen before is not clearly demarcated on this study but appears likely somewhat smaller and less conspicuous. Relatively radiodense nodular density in the right midl arely zone is stable and probably reflects calcified granuloma. No acute infiltrate, effusion, or pneum othorax is suggested. Musculoskeletal: No acute osseous abnormality demonstrated in the limits of the exam. Multilevel deg enerative disc disease changes seen throughout the spine. Other findings: None. IMPRESSION: 1. Borderline enlarged cardiac silhouette, appears relatively reduced compared to old exam. 2. Known left upper lobe mass not well seen, is suspected to be smaller. 3. No evidence of an acute chest process.
[2023-11-13 00:32] VITALS: BP 121/63; PULSE 97
[2023-11-13 00:33] VITALS: RESP 18; TEMP 98.3
== END 2023-11-13 00:30 | disposition home or self-care (01) ==
LOC: EC 16:36
DX: M79.89 Other specified soft tissue disorders (principal); F17.200 Nicotine dependence, unspecified, uncomplicated
CPT/HCPCS: 36415; 71046; 80053; 81001; 83880; 85025; 99284

== ENCOUNTER 2023-11-14 11:39 | Emergency (ER) | payer OTHER ==
--- NOTE | 2023-11-14 11:43 | ED ---
General Adult HPI - General Source: patient, EMS, RN notes reviewed, old records reviewed Mode of arrival: EMS Limitations: no limitations <Steve Pagan - Last Filed: 11/14/23 11:42> <Ector Zelaya - Last Filed: 11/14/23 19:49> - General Stated complaint: Hypotension Time Seen by Provider: 11/14/23 11:39 - History of Present Illness Initial comments: Quick [id number] male presents emergency department via EMS from [facility] for hypotension. Patient has a right leg infection was placed on Keflex a few days ago from here. Patient states it does hurt to ambulate. Patient's reported blood pressure was 70 systolic. (Steve Pagan) This is a 63-year-old male who presents to the emergency department with a past medical history significant for smoking and COPD patient also has a history of high blood pressure. Patient comes in today because he was here couple days ago and given Keflex for an infection of the foot patient states that got much worse to the point where he cannot stand. Patient states only thing he has done differently is where different boot than normal and he states it is much worse pain tickly on the lateral plantar surface of the foot. Patient denies any fever or chills. Patient is any trauma. Patient denies any chest pain patient denies any fever chills or cough. Patient Nu[place] any difficulty breathing or shortness of breath. (Ector Zelaya) - Related Data Home Medications Medication Instructions Recorded Confirmed lisinopriL [Zestril] 20 mg PO DAILY 12/20/22 11/14/23 Cephalexin [Keflex] 500 mg PO DIRECTED 11/14/23 11/14/23 Ergocalciferol (Vitamin D2) 1,250 mcg PO MO 11/14/23 11/14/23 [Drisdol (50,000 Iu)] Levothyroxine Sodium [Synthroid] 25 mcg PO DAILY 11/14/23 11/14/23 Unknown Water Pill 1 dose PO DIRECTED 11/14/23 11/14/23 carvediloL [Coreg] 6.25 mg PO BID 11/14/23 11/14/23 Previous Rx's Medication Instructions Recorded Amoxic-Pot Clav 875-125Mg 1 tab PO BID 10 Days #20 tab 11/14/23 [Augmentin 875-125] Allergies Allergy/AdvReac Type Severity Reaction Status Date / Time No Known Allergies Allergy Verified 11/14/23 13:52 Review of Systems ROS Other: All systems not noted in ROS Statement are negative. <Steve Pagan - Last Filed: 11/14/23 11:42> ROS Other: All systems not noted in ROS Statement are negative. <Ector Zelaya - Last Filed: 11/14/23 19:49> ROS Statement: Those systems with pertinent positive or pertinent negative responses have been documented in the HPI. Past Medical History Past Medical History: GERD/Reflux, Hyperlipidemia, Hypertension, Osteoarthritis (OA) Additional Past Medical History / Comment(s): INPT 10-20-22 FOR VTACH AND MASS ON LT LUNG History of Any Multi-Drug Resistant Organisms: None Reported Past Surgical History: Hernia Repair, Tonsillectomy Additional Past Surgical History / Comment(s): COLONOSCOPY , rt cataract 11/03/21,bronchoscopy Past Anesthesia/Blood Transfusion Reactions: No Reported Reaction Additional Past Anesthesia/Blood Transfusion Reaction / Comment(s): no hx blood transfusion Past Psychological History: No Psychological Hx Reported Smoking Status: Current every day smoker Past Alcohol Use History: None Reported Past Drug Use History: None Reported - Past Family History Mother Family Medical History: No Reported History Father Family Medical History: Renal Disease <Steve Pagan - Last Filed: 11/14/23 11:42> General Exam <Steve Pagan - Last Filed: 11/14/23 11:42> <Ector Zelaya - Last Filed: 11/14/23 19:49> - General Exam Comments Initial Comments: Visual Physical Exam Vital signs reviewed General: Well-appearing, nontoxic, no acute distress. Head: Normocephalic, atraumatic Eyes: PERRLA, EOMI ENT: Airway patent Chest: Nonlabored breathing Skin: No visual rash, normal skin tone Neuro: Alert and oriented 3 Musculoskeletal: No gross abnormalities (Steve Pagan) GENERAL: Patient is well-developed and well-nourished. Patient is nontoxic and well- hydrated and is in mild distress. ENT: Neck is soft and supple. No significant lymphadenopathy is noted. Oropharynx is clear. Moist mucous membranes. Neck has full range of motion without eliciting any pain. EYES: The sclera were anicteric and conjunctiva were pink and moist. Extraocular movements were intact and pupils were equal round and reactive to light. Eyelids were unremarkable. PULMONARY: Unlabored respirations. Good breath sounds bilaterally. Patient has some expiratory wheezing CARDIOVASCULAR: There is a regular rate and rhythm without any murmurs gallops or rubs. ABDOMEN: Soft and nontender with normal bowel sounds. SKIN: Patient has an area of erythema and the medial aspect of the mid right leg. Patient states that area is very tender. Patient complains of quite a bit of pain to the lateral aspect of the right foot and to the plantar surface of the right foot. NEUROLOGIC: Patient is alert and oriented x3. Cranial nerves II through XII are grossly intact. Motor and sensory are also intact. Normal speech, volume and content. Symmetrical smile. MUSCULOSKELETAL: Normal extremities with adequate strength and full range of motion. Patient is unable to put full weight on the right foot LYMPHATICS: No significant lymphadenopathy is noted PSYCHIATRIC: Normal psychiatric evaluation. (Ector Zelaya) Course Vital Signs 11/14/23 11/14/23 11:53 18:34 Temperature 97.5 F L 97.8 F Pulse Rate 65 68 Respiratory 20 20 Rate Blood Pressure 96/58 116/58 O2 Sat by Pulse 99 97 Oximetry Medical Decision Making <Steve Pagan - Last Filed: 11/14/23 11:42> - Lab Data Result diagrams: 11/14/23 12:08 11/14/23 12:08 <Ector Zelaay - Last Filed: 11/14/23 19:49> - Medical Decision Making I completed the quick note portion of this chart signed Steve Pagan PA-C (Steve Pagan) EKG is interpreted by myself EKG shows a sinus rhythm at 65 bpm AR interval 175 QRS is 165 QT interval is 418 QTc is 430. Patient has a right bundle branch bl ock which was seen before. Was pt. sent in by a medical professional or institution (MELANY Camarena, LICENSED LIFE AND HEALTH AGENT, urgent care, hospital, or halfway...) When possible be specific @ -No Did you speak to anyone other than the patient for history (EMS, parent, family, police, friend...)? What history was obtained from this source @ -No Did you review nursing and triage notes (agree or disagree)? Why? @ -I reviewed and agree with nursing and triage notes Were old charts reviewed (outside hosp., previous admission, EMS record, old EKG, old radiological studies, urgent care reports/EKG's, halfway records)? Report findings @ -No old charts were reviewed Differential Diagnosis (chest pain, altered mental status, abdominal pain women, abdominal pain men, vaginal bleeding, weakness, fever, dyspnea, syncope, headache, dizziness, GI bleed, back pain, seizure, CVA, palpatations, mental health, musculoskeletal)? @ -Fracture of the foot, fracture of the ankle, cellulitis, this is not an all- inclusive list EKG interpreted by me (3pts min.). @ -As above X-rays interpreted by me (1pt min.). @ -Patient has a foreign body in the foot that is unchanged from a previous x- rays between the fourth and fifth toes. CT interpreted by me (1pt min.). @ -None done U/S interpreted by me (1pt. min.). @ -None done What testing was considered but not performed or refused? (CT, X-rays, U/S, labs)? Why? @ -None What meds were considered but not given or refused? Why? @ -None Did you discuss the management of the patient with other professionals (professionals i.e. , PA, LICENSED LIFE AND HEALTH AGENT, lab, RT, psych nurse, social services counselor, data security coordinator, teacher, ict customer support officer, case mgr)? Give summary @ -No Was smoking cessation discussed for >3mins.? @ -No Was critical care preformed (if so, how long)? @ -No Were there social determinants of health that impacted care today? How? (Homelessness, low income, unemployed, alcoholism, drug addiction, transportation, low edu. Level, literacy, decrease access to med. care, long-term, rehab)? @ -No Was there de-escalation of care discussed even if they declined (Discuss DNR or withdrawal of care, Hospice)? DNR status @ -No What co-morbidities impacted this encounter? (DM, HTN, Smoking, COPD, CAD, Cancer, CVA, ARF, Chemo, Hep., AIDS, mental health diagnosis, sleep apnea, morbid obesity)? @ -None Was patient admitted / discharged? Hospital course, mention meds given and route, prescriptions, significant lab abnormalities, going to OR and other pertinent info. @ -After patient's lab work came back I told the patient I would admit him and consult orthopedics after the patient been here for about 7 hours she decided he did not want to stay and stated he would follow-up outpatient. Patient has a foreign body to the foot and I will change up his antibiotics and have him follow-up with orthopedics. There is no open wound on the bottom. But that is the area of tenderness and pain on that patient is consistent with where the foreign body is Undiagnosed new problem with uncertain prognosis? @ -No Drug Therapy requiring intensive monitoring for toxicity (Heparin, Nitro, Insulin, Cardizem)? @ -No Were any procedures done? @ -No Diagnosis/symptom? @ -Foreign body foot with cellulitis Acute, or Chronic, or Acute on Chronic? @ -Acute Uncomplicated (without systemic symptoms) or Complicated (systemic symptoms)? @ -Complicated Side effects of treatment? @ -No Exacerbation, Progression, or Severe Exacerbation? @ -No Poses a threat to life or bodily function? How? (Chest pain, [place], [place], pneumonia, PE, COPD, DKA, ARF, appy, cholecystitis, CVA, Diverticulitis, Homicidal, Suicidal, threat to staff... and all critical care pts) @ -No (Ector Zelaya) - Lab Data Lab Results 11/14/23 11/14/23 11/14/23 Range/Units 12:08 12:08 12:08 WBC 10.7 H (3.8-10.6) k/uL RBC 4.28 L (4.30-5.90) m/uL Hgb 12.6 L (13.0-17.5) gm/dL Hct 40.0 (39.0-53.0) % MCV 93.5 (80.0-100.0) fL MCH 29.5 (25.0-35.0) pg MCHC 31.5 (31.0-37.0) g/dL RDW 13.1 (11.5-15.5) % Plt Count 385 (150-450) k/uL MPV 7.7 Neutrophils % (Manual) 88 % Lymphocytes % (Manual) 4 % Monocytes % (Manual) 8 % Neutrophils # (Manual) 9.42 H (1.3-7.7) k/uL Lymphocytes # (Manual) 0.43 L (1.0-4.8) k/uL Monocytes # (Manual) 0.86 (0-1.0) k/uL Nucleated RBCs 0 (0-0) /100 WBC Manual Slide Review Performed PT 10.3 (10.0-12.5) sec INR 0.9 (<1.2) APTT 23.4 (22.0-30.0) sec Sodium 135 L (137-145) mmol/L Potassium 4.1 (3.5-5.1) mmol/L Chloride 101 (98-107) mmol/L Carbon Dioxide 28 (22-30) mmol/L Anion Gap 6 mmol/L BUN 25 H (9-20) mg/dL Creatinine 1.21 (0.66-1.25) mg/dL Est GFR (CKD-EPI)AfAm 73 (>60 ml/min/1.73 sqM) Est GFR (CKD-EPI)NonAf 63 (>60 ml/min/1.73 sqM) Glucose 106 H (74-99) mg/dL Plasma Lactic Acid Andrey (0.7-2.0) mmol/L Calcium 9.8 (8.4-10.2) mg/dL Total Bilirubin 1.0 (0.2-1.3) mg/dL AST 42 (17-59) U/L ALT 22 (4-49) U/L Alkaline Phosphatase 126 (38-126) U/L Total Protein 7.7 (6.3-8.2) g/dL Albumin 3.7 (3.5-5.0) g/dL 11/14/23 11/14/23 Range/Units 12:08 12:08 WBC (3.8-10.6) k/uL RBC (4.30-5.90) m/uL Hgb (13.0-17.5) gm/dL Hct (39.0-53.0) % MCV (80.0-100.0) fL MCH (25.0-35.0) pg MCHC (31.0-37.0) g/dL RDW (11.5-15.5) % Plt Count (150-450) k/uL MPV Neutrophils % (Manual) % Lymphocytes % (Manual) % Monocytes % (Manual) % Neutrophils # (Manual) (1.3-7.7) k/uL Lymphocytes # (Manual) (1.0-4.8) k/uL Monocytes # (Manual) (0-1.0) k/uL Nucleated RBCs (0-0) /100 WBC Manual Slide Review PT (10.0-12.5) sec INR (<1.2) APTT (22.0-30.0) sec Sodium 137 (137-145) mmol/L Potassium 4.2 (3.5-5.1) mmol/L Chloride 101 (98-107) mmol/L Carbon Dioxide 27 (22-30) mmol/L Anion Gap 9 mmol/L BUN 25 H (9-20) mg/dL Creatinine 1.12 (0.66-1.25) mg/dL Est GFR (CKD-EPI)AfAm 80 (>60 ml/min/1.73 sqM) Est GFR (CKD-EPI)NonAf 69 (>60 ml/min/1.73 sqM) Glucose 106 H (74-99) mg/dL Plasma Lactic Acid Andrey 1.7 (0.7-2.0) mmol/L Calcium 9.4 (8.4-10.2) mg/dL Total Bilirubin 0.9 (0.2-1.3) mg/dL AST 30 (17-59) U/L ALT 21 (4-49) U/L Alkaline Phosphatase 125 (38-126) U/L Total Protein 6.7 (6.3-8.2) g/dL Albumin 3.3 L (3.5-5.0) g/dL Disposition <Steve Pagan - Last Filed: 11/14/23 11:42> Is patient prescribed a controlled substance at d/c from ED?: No Time of Disposition: 19:45 <Ector Zelaya - Last Filed: 11/14/23 19:49> Clinical Impression: Foreign body foot/toe, Cellulitis Disposition: HOME SELF-CARE Instructions (If sedation given, give patient instructions): Cellulitis (ED) Prescriptions: Amoxic-Pot Clav 875-125Mg [Augmentin 875-125] 1 tab PO BID 10 Days #20 tab Referrals: [facility],Clinic [Primary Care Provider] - 1-2 days
[2023-11-14 12:18] LABS: HGB 12.6 gm/dL (13.0-17.5); MCH 29.5 pg (25.0-35.0); MCHC 31.5 g/dL (31.0-37.0); MCV 93.5 fL (80.0-100.0); Mean Platelet Volume 7.7; Platelet Count 385 k/uL (150-450); RBC 4.28 m/uL (4.30-5.90); RDW 13.1 % (11.5-15.5); WBC 10.7 k/uL (3.8-10.6)
[2023-11-14 12:28] LABS: ALT 21 U/L (4-49); AST 30 U/L (17-59); African American GFR (CKD) 80 (>60 ml/min/1.73 sqM); Albumin 3.3 g/dL (3.5-5.0); Alkaline Phosphatase 125 U/L (38-126); Anion Gap 9 mmol/L; Blood Urea Nitrogen 25 mg/dL (9-20); Calcium 9.4 mg/dL (8.4-10.2); Carbon Dioxide 27 mmol/L (22-30); Chloride 101 mmol/L (98-107); Glucose 106 mg/dL (74-99); Non-African American GFR(CKD) 69 (>60 ml/min/1.73 sqM); Potassium 4.2 mmol/L (3.5-5.1); Sodium 137 mmol/L (137-145); Total Bilirubin 0.9 mg/dL (0.2-1.3); Total Protein 6.7 g/dL (6.3-8.2)
[2023-11-14 12:30] LABS: INR 0.9 (<1.2); Partial Thromboplastin Time 23.4 sec (22.0-30.0); Prothrombin Time 10.3 sec (10.0-12.5)
[2023-11-14 12:51] LABS: Lymphocytes # (M) 0.43 k/uL (1.0-4.8); Monocytes # (M) 0.86 k/uL (0-1.0); Neutrophils # (M) 9.42 k/uL (1.3-7.7); Neutrophils % (M) 88 %; Nucleated Red Blood Cells 0 /100 WBC (0-0); Total Cells Counted 100
--- NOTE | 2023-11-14 15:18 | XR ---
EXAMINATION TYPE: XR foot complete RT DATE OF EXAM: 11/14/2023 2:26 PM CLINICAL INDICATION:Male, 63 years old with history of Increased pain; [facility] COMPARISON: 11/12/2023 right foot radiograph TECHNIQUE: XR foot complete RT examined in the AP, oblique, and lateral projections. FINDINGS: Same appearance of potential wire foreign body projecting between the fourth and fifth digits of the right foot. No evidence of any acute osseous pathology. No evidence of soft tissue swelling. Joints are preserve d. IMPRESSION: Same appearance of potential 5 mm wire foreign body projecting between the fourth and fifth digits of the right foot, unchanged from prior exam November 12, 2023.
[2023-11-14 15:20] LABS: ALT 22 U/L (4-49); AST 42 U/L (17-59); African American GFR (CKD) 73 (>60 ml/min/1.73 sqM); Albumin 3.7 g/dL (3.5-5.0); Alkaline Phosphatase 126 U/L (38-126); Anion Gap 6 mmol/L; Blood Urea Nitrogen 25 mg/dL (9-20); Calcium 9.8 mg/dL (8.4-10.2); Carbon Dioxide 28 mmol/L (22-30); Chloride 101 mmol/L (98-107); Glucose 106 mg/dL (74-99); Non-African American GFR(CKD) 63 (>60 ml/min/1.73 sqM); Potassium 4.1 mmol/L (3.5-5.1); Sodium 135 mmol/L (137-145); Total Protein 7.7 g/dL (6.3-8.2)
[2023-11-14 21:44] VITALS: BP 123/69; PULSE 101; RESP 22; TEMP 97.6
== END 2023-11-14 21:25 | disposition home or self-care (01) ==
LOC: EC 11:39
DX: S90.852A Superficial foreign body, left foot, initial encounter (principal); L03.90 Cellulitis, unspecified; F17.200 Nicotine dependence, unspecified, uncomplicated; I10 Essential (primary) hypertension; J44.9 Chronic obstructive pulmonary disease, unspecified; Z79.899 Other long term (current) drug therapy; X58.XXXA Exposure to other specified factors, initial encounter
CPT/HCPCS: 36415; 80053; 83605; 85025; 85610; 85730; 87040; 87077; 87186; 93005; 99284

== ENCOUNTER 2023-11-16 11:24 | Inpatient (IN) | payer OTHER ==
[2023-11-16 12:40] LABS: HCT 42.4 % (39.0-53.0); HGB 13.4 gm/dL (13.0-17.5); MCH 29.9 pg (25.0-35.0); MCHC 31.6 g/dL (31.0-37.0); MCV 94.7 fL (80.0-100.0); Platelet Count 434 k/uL (150-450); RBC 4.47 m/uL (4.30-5.90); RDW 13.1 % (11.5-15.5); WBC 8.6 k/uL (3.8-10.6)
[2023-11-16] MEDS ORDERED: VANCOMYCIN IV PER PHARMACY 1 EACH MISC MISCELLANE PRN (12:52)
[2023-11-16 12:54] LABS: ALT 31 U/L (4-49); AST 39 U/L (17-59); African American GFR (CKD) >90 (>60 ml/min/1.73 sqM); Albumin 3.7 g/dL (3.5-5.0); Alkaline Phosphatase 145 U/L (38-126); Anion Gap 11 mmol/L; Blood Urea Nitrogen 23 mg/dL (9-20); Calcium 9.8 mg/dL (8.4-10.2); Carbon Dioxide 28 mmol/L (22-30); Chloride 100 mmol/L (98-107); Glucose 91 mg/dL (74-99); Non-African American GFR(CKD) >90 (>60 ml/min/1.73 sqM); Potassium 4.6 mmol/L (3.5-5.1); Sodium 139 mmol/L (137-145); Total Bilirubin 0.9 mg/dL (0.2-1.3); Total Protein 7.4 g/dL (6.3-8.2)
[2023-11-16 12:55] LABS: Lymphocytes # (M) 0.69 k/uL (1.0-4.8); Neutrophils # (M) 7.31 k/uL (1.3-7.7); Neutrophils % (M) 85 %; Nucleated Red Blood Cells 0 /100 WBC (0-0); Total Cells Counted 100
[2023-11-16 12:56] LABS: RBC Morphology Normal
[2023-11-16 13:06] LABS: C Reactive Protein 23.3 mg/dL (<1.0)
--- NOTE | 2023-11-16 13:09 | ED ---
General Adult HPI - General Chief complaint: Recheck/Abnormal Lab/Rx Stated complaint: Abd labs-sent by pcp Time Seen by Provider: 11/16/23 12:32 Source: patient Mode of arrival: ambulatory Limitations: no limitations - History of Present Illness Initial comments: Dictation was produced using [employer] dictation software. please excuse any grammatical, word or spelling errors. Chief Complaint: 63-year-old male returns to the emergency department for pos itive blood cultures History of Present Illness: Patient 63-year-old male presents emergency depart ment. He was called because he had positive blood cultures for staph. Patient was seen here in the emergency department 2 days ago for wound infections to the lower extremity. Patient denies any fever, chills or night sweats. He was prescribed antibiotics however did not take them. States that he believes that he is here for IV antibiotics. The ROS documented in this emergency department record has been reviewed and confirmed by me. Those systems with pertinent positive or negative responses have been documented in the HPI. All other systems are other negative and/or noncontributory. - Related Data Home Medications Medication Instructions Recorded Confirmed lisinopriL [Zestril] 20 mg PO DAILY 12/20/22 11/16/23 Ergocalciferol (Vitamin D2) 1,250 mcg PO TU 11/14/23 11/16/23 [Drisdol (50,000 Iu)] Levothyroxine Sodium [Synthroid] 25 mcg PO DAILY 11/14/23 11/16/23 carvediloL [Coreg] 6.25 mg PO BID 11/14/23 11/16/23 Furosemide [Lasix] 10 mg PO DAILY 11/16/23 11/16/23 Allergies Allergy/AdvReac Type Severity Reaction Status Date / Time No Known Allergies Allergy Verified 11/16/23 13:08 Review of Systems ROS Statement: Those systems with pertinent positive or pertinent negative responses have been documented in the HPI. ROS Other: All systems not noted in ROS Statement are negative. Past Medical History Past Medical History: GERD/Reflux, Hyperlipidemia, Hypertension, Osteoarthritis (OA) Additional Past Medical History / Comment(s): INPT 10-20-22 FOR VTACH AND MASS ON LT LUNG History of Any Multi-Drug Resistant Organisms: None Reported Past Surgical History: Hernia Repair, Tonsillectomy Additional Past Surgical History / Comment(s): COLONOSCOPY , rt cataract 11/03,bronchoscopy Past Anesthesia/Blood Transfusion Reactions: No Reported Reaction Additional Past Anesthesia/Blood Transfusion Reaction / Comment(s): no hx blood transfusion Past Psychological History: No Psychological Hx Reported Smoking Status: Current every day smoker Past Alcohol Use History: None Reported Past Drug Use History: None Reported - Past Family History Mother Family Medical History: No Reported History Father Family Medical History: Renal Disease General Exam - General Exam Comments Initial Comments: PHYSICAL EXAM: General Impression: Alert and oriented x3, not in acute distress HEENT: Normocephalic atraumatic, extra-ocular movements intact, pupils equal and reactive to light bilaterally, mucous membranes moist. Cardiovascular: Heart regular rate and rhythm Chest: Able to complete full sentences, no retractions, no tachypnea Abdomen: abdomen soft, non-tender, non-distended, no organomegaly Musculoskeletal: Pulses present and equal in all extremities, no peripheral edema Motor: no focal deficits noted Neurological: CN II-XII grossly intact, no focal motor or sensory deficits noted Skin: Boils to the bilateral medial lower extremities Psych: Normal affect and mood Limitations: no limitations Course Vital Signs 11/16/23 11:43 Temperature 98.3 F Pulse Rate 54 L Respiratory 20 Rate Blood Pressure 118/75 O2 Sat by Pulse 100 Oximetry Medical Decision Making - Medical Decision Making Was pt. sent in by a medical professional or institution (MELANY Camarena, EPOXY SPECIALIST, urgent care, hospital, or [facility]...) When possible be specific @ -No Did you speak to anyone other than the patient for history (EMS, parent, family, police, friend...)? What history was obtained from this source @ -No Did you review nursing and triage notes (agree or disagree)? Why? @ -I reviewed and agree with nursing and triage notes Were old charts reviewed (outside hosp., previous admission, EMS record, old EKG, old radiological studies, urgent care reports/EKG's, [facility] records)? Report findings @ -Microbiology results were reviewed showing patient tested positive for Staph aureus in the blood Differential Diagnosis (chest pain, altered mental status, abdominal pain women, abdominal pain men, vaginal bleeding, musculoskeletal, weakness, fever, dyspnea, syncope, headache, dizziness, GI bleed, back pain, seizure, CVA, palpat ations, mental health)? @ -Differential Fever: Pneumonia, viral URI, endocarditis, myocarditis, pericarditis, otitis, sinusitis, peritonsillar Abscess, retropharyngeal Abscess, epiglottitis, periton itis, appendicitis, Reta cystitis, diverticulitis, hepatitis, colitis, UTI, PID, TOA, pyelonephritis, prostatitis, epididymitis, meningitis, encephalitis, pulmonary embolism, CVA, thyroid storm, pancreatitis, adrenal crisis, cavernous sinus thrombosis, this is not meant to be an all-inclusive list. EKG interpreted by me (3pts min.). @ -See above X-rays interpreted by me (1pt min.). @ -None done CT interpreted by me (1pt min.). @ -None done U/S interpreted by me (1pt. min.). @ -None done What testing was considered but not performed or refused? (CT, X-rays, U/S, labs)? Why? @ -None What meds were considered but not given or refused? Why? @ -None Did you discuss the management of the patient with other professionals (professionals i.e. , PA, EPOXY SPECIALIST, lab, RT, psych nurse, social services director, house detective, teacher, nuclear security officer, rn case manager hospice)? Give summary @ -Case discussed with hospitalist for admission Was smoking cessation discussed for >3mins.? @ -No Was critical care preformed (if so, how long)? @ -No Were there social determinants of health that impacted care today? How? (Homeles sness, low income, unemployed, alcoholism, drug addiction, transportation, low edu. Level, literacy, decrease access to med. care, usp, rehab)? @ -No Was there de-escalation of care discussed even if they declined (Discuss DNR or withdrawal of care, Hospice)? DNR status @ -No What co-morbidities impacted this encounter? (DM, HTN, Smoking, COPD, CAD, Cancer, CVA, ARF, Chemo, Hep., AIDS, mental health diagnosis, sleep apnea, morbid obesity)? @ -None Was patient admitted / discharged? Hospital course, mention meds given and route, prescriptions, significant lab abnormalities, going to OR and other pertinent info. @ -63-year-old male presents to the emergency department [facility]. His microbiology results were reviewed. He had 2 preliminary blood cultures positive for Staph aureus. Patient does have wounds on his legs suspicious for likely hematogenous spread. Laboratory evaluation obtained. CBC is unremarkable. Metabolic panel is within acceptable limits. Slight lactic acidosis 2.7. CRP of 23.3. Patient started on vancomycin. Will be admitted consultation to infectious disease. Patient does not meet criteria for severe sepsis. He has normal vitals and lactic acidosis below 4 Undiagnosed new problem with uncertain prognosis? @ -No Drug Therapy requiring intensive monitoring for toxicity (Heparin, Nitro, Insulin, Cardizem)? @ -No Were any procedures done? @ -No Diagnosis/symptom? Acute, or Chronic, or Acute on Chronic? Uncomplicated (without systemic symptoms) or Complicated (systemic symptoms)? @ -Bacteremia Side effects of treatment? @ -No Exacerbation, Progression, or Severe Exacerbation? @ -No Poses a threat to life or bodily function? How? (Chest pain, USA, [place], pneumonia, PE, COPD, DKA, ARF, appy, cholecystitis, CVA, Diverticulitis, Homicidal, Suicidal, threat to staff... and all critical care pts) @ -yes - Lab Data Result diagrams: 11/16/23 12:08 11/16/23 12:08 Lab Results 11/16/23 11/16/23 11/16/23 Range/Units 12:08 12:08 12:08 WBC 8.6 (3.8-10.6) k/uL RBC 4.47 (4.30-5.90) m/uL Hgb 13.4 (13.0-17.5) gm/dL Hct 42.4 (39.0-53.0) % MCV 94.7 (80.0-100.0) fL MCH 29.9 (25.0-35.0) pg MCHC 31.6 (31.0-37.0) g/dL RDW 13.1 (11.5-15.5) % Plt Count 434 (150-450) k/uL MPV 8.0 Neutrophils % (Manual) 85 % Lymphocytes % (Manual) 8 % Monocytes % (Manual) 7 % Neutrophils # (Manual) 7.31 (1.3-7.7) k/uL Lymphocytes # (Manual) 0.69 L (1.0-4.8) k/uL Monocytes # (Manual) 0.60 (0-1.0) k/uL Nucleated RBCs 0 (0-0) /100 WBC Manual Slide Review Performed RBC Morphology Normal Sodium 139 (137-145) mmol/L Potassium 4.6 (3.5-5.1) mmol/L Chloride 100 (98-107) mmol/L Carbon Dioxide 28 (22-30) mmol/L Anion Gap 11 mmol/L BUN 23 H (9-20) mg/dL Creatinine 0.81 (0.66-1.25) mg/dL Est GFR (CKD-EPI)AfAm >90 (>60 ml/min/1.73 sqM) Est GFR (CKD-EPI)NonAf >90 (>60 ml/min/1.73 sqM) Glucose 91 (74-99) mg/dL Plasma Lactic Acid Andrey 2.7 H* (0.7-2.0) mmol/L Calcium 9.8 (8.4-10.2) mg/dL Total Bilirubin 0.9 (0.2-1.3) mg/dL AST 39 (17-59) U/L ALT 31 (4-49) U/L Alkaline Phosphatase 145 H (38-126) U/L C-Reactive Protein 23.3 H (<1.0) mg/dL Total Protein 7.4 (6.3-8.2) g/dL Albumin 3.7 (3.5-5.0) g/dL Disposition Clinical Impression: Bacteremia Disposition: ADMITTED IP TO THIS HOSP Condition: Fair Referrals: [facility],Clinic [Primary Care Provider] - 1-2 days Decision Time: 13:47
[2023-11-16] MEDS ORDERED: ACETAMINOPHEN TAB 325 MG TAB PO PRN (13:42)
[2023-11-16] MEDS ORDERED: ONDANSETRON 4 MG/2 ML VIAL IVP PRN (13:42)
[2023-11-16] MEDS ORDERED: NALOXONE 0.4 MG/ML 1 ML VIAL IV PRN (13:42)
[2023-11-16] MEDS: VANCOMYCIN 1,500 MG in SODIUM CHLORIDE 0.9% 500 ML 500 ML IVPB STA (14:03)
[2023-11-16] MEDS: SODIUM CHLORIDE 0.9% 1,000 ML IV SCH (14:04)
--- NOTE | 2023-11-16 16:13 | P.HPIM ---
History of Present Illness H&P Date: 11/16/23 Patient is a 63-year-old male with a history of lung cancer on immunotherapy, systolic heart failure with a EF 35%, hypothyroidism, hypertension presenting with lower extremity right cellulitis and bacteremia. Patient started having swelling and redness in his right lower extremity after he switched to a new pair of boots. He claims that it started about 1 week ago. He initially prese nted to the hospital, cultures were taken, but he wanted to leave the hospital. Today he was called back due to positive blood cultures growing MSSA. Currently denies any fevers, but does have chills. He denies any chest pain, shortness of breath, abdominal pain, nausea, vomiting, urinary or bowel complaints. In the ED, temperature was 98.3, pulse 54, respiratory rate 20, blood pressure 118/75, saturating at 100% on room air. WBC 8.6, hemoglobin 13.4, platelet 434, ESR pending, creatinine 0.81, lactate 2.7, CRP 23.3. Patient admitted for further evaluation, ID consulted, started on IV vancomycin. Pertinent positives and negatives as discussed in HPI, a complete review of systems was performed and all other systems are negative. Patient seen and examined at bedside. Vital signs reviewed General: nontoxic, no distress, appears at stated age Derm: warm, dry, erythematous and edematous right medial lower extremity induration, no drainage, also has significant edema erythema of right foot Head: atraumatic, normocephalic, symmetric Eyes: EOMI, no lid lag, anicteric sclera, pupils equal round reactive to light ENT: Nose and ears atraumatic Neck: No thyromegaly, supple Mouth: no lip lesion, mucus membranes moist Cardiovascular: S1S2 reg, no murmur, no edema Lungs: clear to auscultation bilateral, no rhonchi, no rales, no wheeze, no accessory muscle use Abdominal: soft, nontender to palpation, no guarding, no appreciable organomegaly Ext: no gross muscle atrophy, muscle strength muscle strength 5 out of 5 in all 4 extremities, no contractures Neuro: CN II-XII grossly intact Psych: Alert, oriented, appropriate affect Assessment/Plan: Active: MSSA bacteremia Right lower extremity cellulitis Lactic acidosis - Repeat blood cultures ordered - ID consulted, pending recommendations - On IV vancomycin, monitor renal function - Echocardiogram ordered - ESR pending - May need further lower extremity imaging to assess for abscess - Okay to continue normal saline at 75 cc an hour for now, hold home Lasix Chronic: Systolic cardiomyopathy, not in exacerbation Hypertension The patient is admitted with an anticipated greater than 2 midnight stay as inpatient status for evaluation of cellulitis and bacteremia. Surrogate decision-maker: Cousin CODE STATUS: Full code DVT prophylaxis: Subcu heparin Anticipated discharge date: Pending clinical course Anticipated discharge place: Pending clinical course A total of 55 minutes was spent on the care of this complex patient more than 50% of the time was spent in counseling and care coordination. Past Medical History Past Medical History: GERD/Reflux, Hyperlipidemia, Hypertension, Osteoarthritis (OA) Additional Past Medical History / Comment(s): INPT 10-20-22 FOR VTACH AND MASS ON LT LUNG History of Any Multi-Drug Resistant Organisms: None Reported Past Surgical History: Hernia Repair, Tonsillectomy Additional Past Surgical History / Comment(s): COLONOSCOPY , rt cataract 11/03/21,bronchoscopy Past Anesthesia/Blood Transfusion Reactions: No Reported Reaction Additional Past Anesthesia/Blood Transfusion Reaction / Comment(s): no hx blood transfusion Past Psychological History: No Psychological Hx Reported Smoking Status: Current every day smoker Past Alcohol Use History: None Reported Past Drug Use History: None Reported - Past Family History Mother Family Medical History: No Reported History Father Family Medical History: Renal Disease Medications and Allergies Home Medications Medication Instructions Recorded Confirmed Type lisinopriL [Zestril] 20 mg PO DAILY 12/20/22 11/16/23 History Ergocalciferol (Vitamin D2) 1,250 mcg PO TU 11/14/23 11/16/23 History [Drisdol (50,000 Iu)] Levothyroxine Sodium [Synthroid] 25 mcg PO DAILY 11/14/23 11/16/23 History carvediloL [Coreg] 6.25 mg PO BID 11/14/23 11/16/23 History Furosemide [Lasix] 10 mg PO DAILY 11/16/23 11/16/23 History Allergies Allergy/AdvReac Type Severity Reaction Status Date / Time No Known Allergies Allergy Verified 11/16/23 13:08 Physical Exam Vitals: Vital Signs Temp Pulse Resp BP Pulse Ox 11/16/23 14:04 58 L 16 144/85 98 11/16/23 11:43 98.3 F 54 L 20 118/75 100 Intake and Output 11/16/23 11/16/23 11/16/23 06:59 14:59 22:59 Other: Weight 84.822 kg Results CBC & Chem 7: 11/16/23 12:08 11/16/23 12:08 Labs: Abnormal Lab Results - Last 24 Hours (Table) 11/16/23 11/16/23 11/16/23 Range/Units 12:08 12:08 12:08 Lymphocytes # (Manual) 0.69 L (1.0-4.8) k/uL BUN 23 H (9-20) mg/dL Plasma Lactic Acid Andrey 2.7 H* (0.7-2.0) mmol/L Alkaline Phosphatase 145 H (38-126) U/L C-Reactive Protein 23.3 H (<1.0) mg/dL 11/16/23 Range/Units 15:04 Lymphocytes # (Manual) (1.0-4.8) k/uL BUN (9-20) mg/dL Plasma Lactic Acid Andrey 2.7 H* (0.7-2.0) mmol/L Alkaline Phosphatase (38-126) U/L C-Reactive Protein (<1.0) mg/dL
[2023-11-16] MEDS: HEPARIN SODIUM,PORCINE 5,000 UNIT/ML 1 ML VIAL SQ SCH (17:33)
[2023-11-16] MEDS: carvediloL 6.25 MG TAB PO SCH (17:33)
[2023-11-16 18:07] LABS: Erythrocyte Sedimentation Rate >130 mm/Hr (0-20)
--- NOTE | 2023-11-16 21:58 | P.CONS ---
History of Present Illness - Reason for Consult Consult date: 11/16/23 - History of Present Illness Patient is a 63-year-old male with a past medical history pertinent for hypertension hyperlipidemia osteoarthritis reflux started having swelling and redness to the right lower extremity about a week ago and apparently the patient has been treated with oral Keflex without any improvement patient presented to [facility] ER on 11/14/2023 for evaluation of hypertension and right lower extremity cellulitis patient did have blood cultures done and subsequently discharged home blood cultures came back positive with Staph aureus patient was advised to come back to the hospital patient denies high-grade fever or any chills and no fever on presentation to the hospital patient complaining of pain to the right lower extremity area of erythema especially when it is touched mostly dull aching mild to moderate intensity without any radiation with associated swelling and redness admission there was some drainage from it patient on presentation to the hospital was afebrile he was not tachycardic hypotensive or hypoxic did have white count of 8.6 creatinine 0.81 liver isms are normal CRP is 21.8 blood culture has been repeated infectious he was consulted for further management of antibiotic therapy Past Medical History Past Medical History: GERD/Reflux, Hyperlipidemia, Hypertension, Osteoarthritis (OA) Additional Past Medical History / Comment(s): INPT 10-20-22 FOR VTACH AND MASS ON LT LUNG History of Any Multi-Drug Resistant Organisms: None Reported Past Surgical History: Hernia Repair, Tonsillectomy Additional Past Surgical History / Comment(s): COLONOSCOPY , rt cataract 11/03/21,bronchoscopy Past Anesthesia/Blood Transfusion Reactions: No Reported Reaction Additional Past Anesthesia/Blood Transfusion Reaction / Comm: no hx blood transfusion Past Psychological History: No Psychological Hx Reported Smoking Status: Current every day smoker Past Alcohol Use History: None Reported Past Drug Use History: None Reported - Past Family History Mother Family Medical History: No Reported History Father Family Medical History: Renal Disease Medications and Allergies Home Medications Medication Instructions Recorded Confirmed Type lisinopriL [Zestril] 20 mg PO DAILY 12/20/22 11/16/23 History Ergocalciferol (Vitamin D2) 1,250 mcg PO TU 11/14/23 11/16/23 History [Drisdol (50,000 Iu)] Levothyroxine Sodium [Synthroid] 25 mcg PO DAILY 11/14/23 11/16/23 History carvediloL [Coreg] 6.25 mg PO BID 11/14/23 11/16/23 History Furosemide [Lasix] 10 mg PO DAILY 11/16/23 11/16/23 History Allergies Allergy/AdvReac Type Severity Reaction Status Date / Time No Known Allergies Allergy Verified 11/16/23 13:08 Physical Exam Vitals: Vital Signs Temp Pulse Resp BP Pulse Ox 11/16/23 14:04 58 L 16 144/85 98 11/16/23 11:43 98.3 F 54 L 20 118/75 100 Intake and Output 11/16/23 11/16/23 11/16/23 06:59 14:59 22:59 Other: Weight 84.822 kg Results CBC & Chem 7: 11/16/23 12:08 11/16/23 12:08 Labs: Abnormal Lab Results - Last 24 Hours (Table) 11/16/23 11/16/23 11/16/23 Range/Units 12:08 12:08 12:08 Lymphocytes # (Manual) 0.69 L (1.0-4.8) k/uL BUN 23 H (9-20) mg/dL Plasma Lactic Acid Andrey 2.7 H* (0.7-2.0) mmol/L Alkaline Phosphatase 145 H (38-126) U/L C-Reactive Protein 23.3 H (<1.0) mg/dL Assessment and Plan Plan: 1patient with Staph aureus bacteremia source likely right lower extremity area of cellulitis and there is concern for possible abscess likely from Staph aureus, blood culture has been repeated document clearance of bacteremia 2-patient benefit from vascular surgery evaluation and drainage of this abscess 3-vancomycin pharmacy to dose target trough of 15 while watching kidney function and Vanco trough closely We will follow on clinical condition and cultures to further adjust medication if needed Thank you for this consultation we will follow the patient along with you Dictation was produced using [employer] dictation software. please excuse any grammatical, word or spelling errors. Time with Patient: Greater than 30
[2023-11-16] MEDS: VANCOMYCIN 1,500 MG in SODIUM CHLORIDE 0.9% 500 ML 500 ML IVPB SCH (22:39)
[2023-11-17 07:57] LABS: African American GFR (CKD) >90 (>60 ml/min/1.73 sqM); Non-African American GFR(CKD) >90 (>60 ml/min/1.73 sqM)
[2023-11-17] MEDS: LEVOTHYROXINE 25 MCG TAB PO SCH (08:08)
[2023-11-17] MEDS: lisinopriL 20 MG TAB PO SCH (08:09)
[2023-11-17] MEDS: PANTOPRAZOLE 40 MG/10 ML VIAL IV SCH (08:13)
[2023-11-17] MEDS ORDERED: FUROSEMIDE 10 MG TAB PO SCH (09:00)
--- NOTE | 2023-11-17 12:20 | CA ---
Transthoracic Echo Report Name: Daniel Delatorre Age: 63 Gender: M : 1960 Exam Date: 11/17/2023 07:52 Exam Location: [place] [facility] Ht (in): 76 Wt (lb): 187 Ordering Physician: Yuri Silva MD Attending/Referring Phys: Area Director Cady Gonzalez RDCS Procedure CPT: Indications: bacteremia Cardiac Hx: Technical Quality: Fair Contrast 1: Total Dose (mL): Contrast 2: Total Dose (mL): MEASUREMENTS (Male / Female) Normal Values 2D ECHO LV Diastolic Diameter PLAX 6.4 cm 4.2 - 5.9 / 3.9 - 5.3 cm LV Systolic Diameter PLAX 5.4 cm IVS Diastolic Thickness 1.2 cm 0.6 - 1.0 / 0.6 - 0.9 cm LVPW Diastolic Thickness 1.4 cm 0.6 - 1.0 / 0.6 - 0.9 cm LV Relative Wall Thickness 0.4 RV Internal Dim ED PLAX 3.7 cm LV Diastolic Volume MOD BP 193.5 cm??? 67 - 155 / 56 - 104 cm??? LV Systolic Volume MOD BP 112.4 cm??? 22 - 58 / 19 - 49 cm??? LV Ejection Fraction MOD BP 41.9 % >= 55 % LV Cardiac Index MOD BP 2897.5 cm???/min???m??? LV Diastolic Volume MOD 4C 208.3 cm??? LV Systolic Volume MOD 4C 129.2 cm??? LV Ejection Fraction MOD 4C 38.0 % LV Cardiac Index MOD 4C 2824.2 cm???/min???m??? LV Diastolic Length 4C 9.6 cm LV Systolic Length 4C 7.8 cm LV Diastolic Volume MOD 2C 180.8 cm??? LV Systolic Volume MOD 2C 99.0 cm??? LV Ejection Fraction MOD 2C 45.3 % LV Cardiac Index MOD 2C 2922.5 cm???/min???m??? LV Diastolic Length 2C 9.6 cm LV Systolic Length 2C 7.9 cm LA Volume 102.0 cm??? 18 - 58 / 22 - 52 cm??? LA Volume Index 47.9 cm???/m??? 16 - 28 cm???/m??? M-MODE Aortic Root Diameter MM 3.6 cm LA Systolic Diameter MM 4.4 cm LA Ao Ratio MM 1.2 AV Cusp Separation MM 2.5 cm DOPPLER AV Peak Velocity 141.7 cm/s AV Peak Gradient 8.0 mmHg AV Mean Velocity 94.4 cm/s AV Mean Gradient 4.0 mmHg AV Velocity Time Integral 27.3 cm LVOT Peak Velocity 125.5 cm/s LVOT Peak Gradient 6.3 mmHg LVOT Velocity Time Integral 21.8 cm MV Area PHT 3.1 cm??? Mitral E Point Velocity 55.4 cm/s Mitral A Point Velocity 86.4 cm/s Mitral E to A Ratio 0.6 MV Deceleration Time 241.2 ms MV E' Velocity 6.7 cm/s Mitral E to MV E' Ratio 8.3 FINDINGS Left Ventricle Mildly increased left ventricular wall thickness . Mildly increased left ventricular diastolic diameter. Moderately increased left ventricular diastolic volume. Severely increased left ventricular systolic volume. Moderately decreased left ventricular ejection fraction. Moderately reduced global left ventricular systolic function. Left ventricular ejection fraction is estimated at 35-40 %. Grade 1 diastolic dysfunction. Right Ventricle Mild right ventricular dilatation. Right ventricular systolic pressure within normal limits. Right Atrium Mild right atrial dilatation. Left Atrium Severely increased left atrial volume. Mildly increased left atrial area. Mitral Valve Structurally normal mitral valve. Mild mitral annular calcification. Mild mitral regurgitation. Aortic Valve Trileaflet aortic valve. No aortic valve stenosis or regurgitation. Tricuspid Valve Structurally normal tricuspid valve. Mild tricuspid regurgitation. Pulmonic Valve Structurally normal pulmonic valve. Pericardium No pericardial effusion. Aorta Normal size aortic root and proximal ascending aorta. CONCLUSIONS Severe LV dysfunction Mild RV enlargement Previewed by: Dr. Tano Steinberg MD (Electronically Signed) Final Date: 17 November 2023 12:19
--- NOTE | 2023-11-17 13:32 | P.PN ---
Subjective Progress Note Date: 11/17/23 Hospital Course: 63-year-old male with a history of lung cancer on immunotherapy, systolic heart failure with a EF 35%, hypothyroidism, hypertension presenting with lower extremity right cellulitis and bacteremia. In the ED, temperature was 98.3, pulse 54, respiratory rate 20, blood pressure 118/75, saturating at 100% on room air. WBC 8.6, hemoglobin 13.4, platelet 434, ESR pending, creatinine 0.81, lactate 2.7, CRP 23.3. Patient admitted for further evaluation, ID consulted, started on IV vancomycin. Found to have MSSA bacteremia. Now switch to cefazolin. Subjective: Patient seen and examined at bedside. No acute events overnight. Pertinent positives and negatives as discussed above, a complete review of systems was performed and all other systems are negative. Vitals Signs Reviewed. General: nontoxic, no distress, appears at stated age Derm: warm, dry, erythematous and edematous right medial lower extremity induration, no drainage, also has significant edema erythema of right foot Head: atraumatic, normocephalic, symmetric Eyes: EOMI, no lid lag, anicteric sclera, pupils equal round reactive to light ENT: Nose and ears atraumatic Neck: No thyromegaly, supple Mouth: no lip lesion, mucus membranes moist Cardiovascular: S1S2 reg, no murmur, no edema Lungs: clear to auscultation bilateral, no rhonchi, no rales, no wheeze, no accessory muscle use Abdominal: soft, nontender to palpation, no guarding, no appreciable organomegaly Ext: no gross muscle atrophy, muscle strength muscle strength 5 out of 5 in all 4 extremities, no contractures Neuro: CN II-XII grossly intact Psych: Alert, oriented, appropriate affect Data Reviewed Today: Pertinent Labs: Creatinine 0.76, lactate 1 Imaging: Echocardiogram showed severe LV dysfunction, mild RV enlargement, EF 35 to 40%, grade 1 diastolic dysfunction, no vegetations noted Assessment and Plan: MSSA bacteremia Right lower extremity cellulitis Lactic acidosis - ID following -Vancomycin discontinued, started on IV cefazolin, repeat blood cultures still negative -Echocardiogram did not show any vegetations - May need further lower extremity imaging to assess for abscess - Okay to continue normal saline at 75 cc an hour for now, hold home Lasix Chronic: Systolic cardiomyopathy, not in exacerbation Hypertension DVT ppx: Subcu heparin Code status: Full code Anticipated discharge place: Pending clinical course Anticipated discharge time: Pending clinical course Objective - Vital Signs Vital signs: Vital Signs Temp 98.3 F 11/16/23 11:43 Pulse 80 11/17/23 02:44 Resp 18 11/17/23 02:44 BP 156/86 11/17/23 02:44 Pulse Ox 96 11/17/23 02:44 FiO2 Intake & Output 11/16/23 11/17/23 11/17/23 18:59 06:59 18:59 Weight 84.822 kg - Labs CBC & Chem 7: 11/16/23 12:08 11/17/23 07:20 Labs: Abnormal Lab Results - Last 24 Hours (Table) 11/16/23 11/16/23 11/16/23 Range/Units 12:08 15:04 15:49 ESR >130 H (0-20) mm/Hr Plasma Lactic Acid Andrey 2.7 H* (0.7-2.0) mmol/L C-Reactive Protein 21.8 H (<1.0) mg/dL 11/16/23 Range/Units 18:11 ESR (0-20) mm/Hr Plasma Lactic Acid Andrey 2.4 H* (0.7-2.0) mmol/L C-Reactive Protein (<1.0) mg/dL
[2023-11-17] MEDS ORDERED: VANCOMYCIN TROUGH DUE 1 EACH MISC MISCELLANE ONE (21:00)
--- NOTE | 2023-11-18 08:12 | P.PN ---
Subjective Progress Note Date: 11/17/23 Principal diagnosis: Reason for follow-up is MSSA bacteremia right leg cellulitis Patient is a 63-year male with multiple comorbidity recently evaluated at [facility] ER for right lower extremity cellulitis discharged on oral antibiotics presenting back with positive blood culture has been diagnosed with right lower extremity abscess cellulitis with secondary bacteremia. On today's evaluation that is 11/17/2023, the patient continues to be afebrile, the patient is on room air and breathing comfortably, the Pt denies having any chest pain or cough, the patient denies having any abdominal pain no vomiting or any diarrhea pain discomfort to the right lower extremity has Decreased intensity. Patient did have a creatinine 0.76, blood culture this admission also showing gram-positive previous blood culture finalized with MSSA Objective - Vital Signs Vital signs: Vital Signs Temp 98.3 F 11/16/23 11:43 Pulse 80 11/17/23 02:44 Resp 18 11/17/23 02:44 BP 156/86 11/17/23 02:44 Pulse Ox 96 11/17/23 02:44 FiO2 Intake & Output 11/16/23 11/17/23 11/17/23 18:59 06:59 18:59 Weight 84.822 kg - Exam GENERAL DESCRIPTION: Middle-age male lying in bed in no distress RESPIRATORY SYSTEM: Unlabored breathing , decreased breath sounds at bases HEART: S1 S2 regular rate and rhythm , ABDOMEN: Soft , no tenderness EXTREMITIES: Right lower leg area of swelling redness slightly decreased no drainage - Labs CBC & Chem 7: 11/16/23 12:08 11/17/23 07:20 Labs: Abnormal Lab Results - Last 24 Hours (Table) 11/16/23 11/16/23 11/16/23 Range/Units 12:08 12:08 12:08 Lymphocytes # (Manual) 0.69 L (1.0-4.8) k/uL ESR >130 H (0-20) mm/Hr BUN 23 H (9-20) mg/dL Plasma Lactic Acid Andrey 2.7 H* (0.7-2.0) mmol/L Alkaline Phosphatase 145 H (38-126) U/L C-Reactive Protein 23.3 H (<1.0) mg/dL 11/16/23 11/16/23 11/16/23 Range/Units 15:04 15:49 18:11 Lymphocytes # (Manual) (1.0-4.8) k/uL ESR (0-20) mm/Hr BUN (9-20) mg/dL Plasma Lactic Acid Andrey 2.7 H* 2.4 H* (0.7-2.0) mmol/L Alkaline Phosphatase (38-126) U/L C-Reactive Protein 21.8 H (<1.0) mg/dL Assessment and Plan (1) Cellulitis of right leg Current Visit: Yes Status: Acute Code(s): L03.115 - CELLULITIS OF RIGHT LOWER LIMB SNOMED Code(s): 71103961156543994 (2) MSSA bacteremia Current Visit: Yes Status: Acute Code(s): R78.81 - BACTEREMIA; B95.61 - METHICILLIN SUSCEP STAPH INFCT CAUSING DIS CLASSD [id number] SNOMED Code(s): 440962066 Plan: 1patient with Staph aureus bacteremia source likely right lower extremity area of cellulitis and there is concern for possible abscess likely from Staph aureus, blood culture has been repeated document clearance of bacteremia 2-patient blood culture has been finalized with MSSA repeat blood culture currently pending 3-antibiotic adjusted to cefazolin 2 g every 8 hours to continue while waiting for repeat culture to finalize Dictation was produced using [employer] dictation software. please excuse any grammatical, word or spelling errors. Time with Patient: Less than 30
[2023-11-18] MEDS: PANTOPRAZOLE 40 MG TABLET PO SCH (08:16)
--- NOTE | 2023-11-18 14:27 | P.PN ---
Subjective Progress Note Date: 11/18/23 Hospital Course: 63-year-old male with a history of lung cancer on immunotherapy, systolic heart failure with a EF 35%, hypothyroidism, hypertension presenting with lower extremity right cellulitis and bacteremia. In the ED, temperature was 98.3, pulse 54, respiratory rate 20, blood pressure 118/75, saturating at 100% on room air. WBC 8.6, hemoglobin 13.4, platelet 434, ESR pending, creatinine 0.81, lactate 2.7, CRP 23.3. Patient admitted for further evaluation, ID consulted, started on IV vancomycin. Found to have MSSA bacteremia. Now switch to cefazolin. 1 out of 2 blood cultures came back positive again for Staph aureus. Echocardiogram showed severe LV dysfunction, mild RV enlargement, EF 35 to 40%, grade 1 diastolic dysfunction, no vegetations noted. Subjective: Patient seen and examined at bedside. No acute events overnight. Pertinent positives and negatives as discussed above, a complete review of systems was performed and all other systems are negative. Vitals Signs Reviewed. General: nontoxic, no distress, appears at stated age Derm: warm, dry, erythematous and edematous right medial lower extremity induration, no drainage, also has significant edema erythema of right foot Head: atraumatic, normocephalic, symmetric Eyes: EOMI, no lid lag, anicteric sclera, pupils equal round reactive to light ENT: Nose and ears atraumatic Neck: No thyromegaly, supple Mouth: no lip lesion, mucus membranes moist Cardiovascular: S1S2 reg, no murmur, no edema Lungs: clear to auscultation bilateral, no rhonchi, no rales, no wheeze, no accessory muscle use Abdominal: soft, nontender to palpation, no guarding, no appreciable organomegaly Ext: no gross muscle atrophy, muscle strength muscle strength 5 out of 5 in all 4 extremities, no contractures Neuro: CN II-XII grossly intact Psych: Alert, oriented, appropriate affect Data Reviewed Today: Pertinent Labs: No new labs Imaging: No new imaging Assessment and Plan: MSSA bacteremia Right lower extremity cellulitis Lactic acidosis - ID following -on IV cefazolin, 1 out of 2 blood cultures came back positive for MSSA again, repeat blood cultures pending -Echocardiogram did not show any vegetations - May need further lower extremity imaging to assess for abscess -Fluids discontinued Chronic: Systolic cardiomyopathy, not in exacerbation Hypertension DVT ppx: Subcu heparin Code status: Full code Anticipated discharge place: Pending clinical course Anticipated discharge time: Pending clinical course Objective - Vital Signs Vital signs: Vital Signs Temp 98.0 F 11/18/23 13:45 Pulse 70 11/18/23 13:45 Resp 20 11/18/23 13:45 BP 124/39 11/18/23 13:45 Pulse Ox 100 11/18/23 13:45 FiO2 Intake & Output 11/17/23 11/18/23 11/18/23 18:59 06:59 18:59 Output Total 1999 400 300 Balance -1999 -400 -300 Weight 81.1 kg Output: Urine 1999 400 300 Other: Voiding Method Toilet Urinal # Voids 5 - Labs CBC & Chem 7: 11/16/23 12:08 11/17/23 07:20 Labs: Microbiology - Last 24 Hours (Table) 11/15/23 13:45 Blood Culture Gram Stain - Preliminary Blood Blood Culture - Preliminary Presumptive Staph aureus 11/16/23 16:19 Blood Culture - Preliminary Blood
[2023-11-18] MEDS: FUROSEMIDE 20 MG TAB PO SCH (17:05)
--- NOTE | 2023-11-18 19:02 | CT ---
EXAMINATION TYPE: CT foot LT wo/w con DATE OF EXAM: 11/18/2023 COMPARISON: No radiographic correlation available HISTORY: 63-year-old male POSSIBLE ABSCESS under big toe. Patient reports possible splinter in this r egion. TECHNIQUE: Contiguous axial scanning of the left foot performed without and with IV Contrast, patient injected with 100 cc mL of Isovue 300. Coronal/sagittal reconstructions performed. 3-D reconstructio ns generated on a dedicated workstation. CT DLP: 412.6 mGycm Automated exposure control for dose reduction was used. FINDINGS: There is an ulcer along the ball of the foot below the great toe. Heterogeneous fluid density here me asures 4.9 cm AP by 2.0 cm wide by 1.9 cm thick. No underlying osseous erosions. Severe degenerative change first MTP joint and additional degenerative change first metatarsal sesamo id joint. Moderate degenerative change within the mid foot particularly at the navicular cuneiform articulation . There is a probable fragmented spur at the dorsal talonavicular joint measuring 1.4 cm. The talar dome is intact as is the talonavicular joint. Smooth delineation to the Achilles tendon. No acute fracture, subluxation, or dislocation seen. IMPRESSION: 1. SOFT TISSUE ULCER ALONG THE BALL OF THE FOOT BELOW THE GREAT TOE. HETEROGENEOUS FLUID DENSITY HERE MEASURES 4.9 X 2.0 X 1.9 CM. FINDINGS SUGGEST PHLEGMON AND EARLY ABSCESS. 2. NO UNDERLYING BONY DESTRUCTION TO SUGGEST A CONTIGUOUS OSTEOMYELITIS AT THIS TIME. 3. HALLUX RIGIDUS AND ADDITIONAL SCATTERED MODERATE MIDFOOT OA.
--- NOTE | 2023-11-19 10:43 | US ---
EXAMINATION TYPE: US arterial LE multi level DATE OF EXAM: 11/18/2023 11:15 AM CLINICAL INDICATION: Male, 63 years old with history of decreased pulses; Wound right lower medial ca lf for 1 week. decreased pulses History of: Smoker: current Hypertension: yes Diabetic: no Hyperlipidemia: unknown TIA/CVA: no Previous Vascular Surgery: no VA: no Vascular Ulcers: yes. right calf Claudication: no Gangrene: no Doppler Waveforms: Right: Monophasic Left: Monophasic Pulse Volume Recording: Pressure Gradients: Right Brachial Pressure: 123 Left Brachial Pressure: 130 Ankle-Brachial Indices: Right: 0.77 Left: 0.92 Toe Brachial Indices: Right: 0.45 Left: 0.61 IMPRESSION: Moderate right and mild left peripheral vascular disease by ankle brachial indices.
--- NOTE | 2023-11-19 14:32 | P.PN ---
Subjective Progress Note Date: 11/19/23 Hospital Course: 63-year-old male with a history of lung cancer on immunotherapy, systolic heart failure with a EF 35%, hypothyroidism, hypertension presenting with lower extremity right cellulitis and bacteremia. In the ED, temperature was 98.3, pulse 54, respiratory rate 20, blood pressure 118/75, saturating at 100% on room air. WBC 8.6, hemoglobin 13.4, platelet 434, ESR pending, creatinine 0.81, lactate 2.7, CRP 23.3. Patient admitted for further evaluation, ID consulted, started on IV vancomycin. Found to have MSSA bacteremia. Now switch to cefazolin. 1 out of 2 blood cultures came back positive again for Staph aureus. Echocardiogram showed severe LV dysfunction, mild RV enlargement, EF 35 to 40%, grade 1 diastolic dysfunction, no vegetations noted. Subjective: Patient seen and examined at bedside. No acute events overnight. Pertinent positives and negatives as discussed above, a complete review of systems was performed and all other systems are negative. Vitals Signs Reviewed. General: nontoxic, no distress, appears at stated age Derm: warm, dry, erythematous and edematous right medial lower extremity induration, no drainage, also has significant edema erythema of right foot Head: atraumatic, normocephalic, symmetric Eyes: EOMI, no lid lag, anicteric sclera, pupils equal round reactive to light ENT: Nose and ears atraumatic Neck: No thyromegaly, supple Mouth: no lip lesion, mucus membranes moist Cardiovascular: S1S2 reg, no murmur, no edema Lungs: clear to auscultation bilateral, no rhonchi, no rales, no wheeze, no accessory muscle use Abdominal: soft, nontender to palpation, no guarding, no appreciable organomegaly Ext: no gross muscle atrophy, muscle strength muscle strength 5 out of 5 in all 4 extremities, no contractures Neuro: CN II-XII grossly intact Psych: Alert, oriented, appropriate affect Data Reviewed Today: Pertinent Labs: No new labs Imaging: Left foot CT showed ulcer along the ball of the foot below the great toe, phlegmon versus early abscess. Assessment and Plan: MSSA bacteremia Right lower extremity cellulitis Left foot abscess Lactic acidosis - ID following -on IV cefazolin, 1 out of 2 blood cultures came back positive for MSSA again, repeat blood cultures pending -Vascular surgery consulted for left foot abscess -Echocardiogram did not show any vegetations Chronic: Systolic cardiomyopathy, not in exacerbation Hypertension DVT ppx: Subcu heparin Code status: Full code Anticipated discharge place: Pending clinical course Anticipated discharge time: Pending clinical course Objective - Vital Signs Vital signs: Vital Signs Temp 98.6 F 11/19/23 07:21 Pulse 71 11/19/23 07:21 Resp 20 11/19/23 07:21 BP 130/69 11/19/23 07:21 Pulse Ox 98 11/19/23 08:05 FiO2 Intake & Output 11/18/23 11/19/23 11/19/23 18:59 06:59 18:59 Output Total 1500 1050 250 Balance -1500 -1050 -250 Weight 79.3 kg Output: Urine 1500 1050 250 Other: Voiding Method Toilet Toilet Toilet Urinal Urinal Urinal - Labs CBC & Chem 7: 11/16/23 12:08 11/17/23 07:20 Labs: Microbiology - Last 24 Hours (Table) 11/18/23 05:49 Blood Culture - Preliminary Blood 11/16/23 16:19 Blood Culture - Preliminary Blood
--- NOTE | 2023-11-19 16:24 | P.PN ---
Subjective Progress Note Date: 11/18/23 Principal diagnosis: Reason for follow-up is MSSA bacteremia right leg cellulitis Patient is a 63-year male with multiple comorbidity recently evaluated at [facility] ER for right lower extremity cellulitis discharged on oral antibiotics presenting back with positive blood culture has been diagnosed with right lower extremity abscess cellulitis with secondary bacteremia. On today's evaluation that is 11/18/2023, Patient is afebrile patient is currently on room air and denies having any shortness of breath, the patient denies any chest pain or cough, the patient denies any nausea vomiting did not have any abdominal pain and no diarrhea, the patient denies pain to the right leg wound area. No lab draw today blood culture repeated this morning as well as 425 so far negative Objective - Vital Signs Vital signs: Vital Signs Temp 98.0 F 11/18/23 13:45 Pulse 70 11/18/23 13:45 Resp 20 11/18/23 13:45 BP 125/59 11/18/23 14:48 Pulse Ox 100 11/18/23 13:45 FiO2 Intake & Output 11/17/23 11/18/23 11/18/23 18:59 06:59 18:59 Output Total 1999 400 1100 Balance -1999 -400 -1100 Weight 81.1 kg Output: Urine 1999 400 1100 Other: Voiding Method Toilet Urinal # Voids 5 - Exam GENERAL DESCRIPTION: Middle-age male lying in bed in no distress RESPIRATORY SYSTEM: Unlabored breathing , decreased breath sounds at bases HEART: S1 S2 regular rate and rhythm , ABDOMEN: Soft , no tenderness EXTREMITIES: Right lower leg area of swelling redness slightly decreased no drainage - Labs CBC & Chem 7: 11/16/23 12:08 11/17/23 07:20 Labs: Microbiology - Last 24 Hours (Table) 11/15/23 13:45 Blood Culture Gram Stain - Preliminary Blood Blood Culture - Preliminary Presumptive Staph aureus 11/16/23 16:19 Blood Culture - Preliminary Blood Assessment and Plan (1) Cellulitis of right leg Current Visit: Yes Status: Acute Code(s): L03.115 - CELLULITIS OF RIGHT LOWER LIMB SNOMED Code(s): 29601993191829185 (2) MSSA bacteremia Current Visit: Yes Status: Acute Code(s): R78.81 - BACTEREMIA; B95.61 - METHICILLIN SUSCEP STAPH INFCT CAUSING DIS CLASSD ELSWHR SNOMED Code(s): 248035989 Plan: 1patient with Staph aureus bacteremia source likely right lower extremity area of cellulitis and there is concern for possible abscess likely from Staph aureus, blood culture has been repeated document clearance of bacteremia 2-patient blood culture has been finalized with MSSA repeat blood culture currently pending 3-patient to continue with cefazolin 2 g every 8 hours we will get a midline when he clear his bacteremia Dictation was produced using [employer] dictation software. please excuse any grammatical, word or spelling errors. Time with Patient: Less than 30
--- NOTE | 2023-11-19 16:25 | P.PN ---
Subjective Progress Note Date: 11/19/23 Principal diagnosis: Reason for follow-up is MSSA bacteremia right leg cellulitis Patient is a 63-year male with multiple comorbidity recently evaluated at [facility] ER for right lower extremity cellulitis discharged on oral antibiotics presenting back with positive blood culture has been diagnosed with right lower extremity abscess cellulitis with secondary bacteremia. On today's evaluation that is 11/19/2023, patient has been afebrile, patient is breathing comfortably and is currently on room air, patient denies having any significant cough no chest pain shortness of breath, patient denies nausea vomiting or diarrhea and no abdominal pain, patient becoming more discomfort to the right foot at the base of the big toe. Blood culture repeated 11/16/2023 as well as 11/18/2023 so far negative Objective - Vital Signs Vital signs: Vital Signs Temp 98.3 F 11/19/23 13:05 Pulse 68 11/19/23 13:05 Resp 20 11/19/23 13:05 BP 103/53 11/19/23 13:05 Pulse Ox 97 11/19/23 13:05 FiO2 Intake & Output 11/18/23 11/19/23 11/19/23 18:59 06:59 18:59 Output Total 1500 1050 250 Balance -1500 -1050 -250 Weight 79.3 kg Output: Urine 1500 1050 250 Other: Voiding Method Toilet Toilet Toilet Urinal Urinal Urinal # Voids 1 - Exam GENERAL DESCRIPTION: Middle-age male lying in bed in no distress RESPIRATORY SYSTEM: Unlabored breathing , decreased breath sounds at bases HEART: S1 S2 regular rate and rhythm , ABDOMEN: Soft , no tenderness EXTREMITIES: Right lower leg area with no drainage, patient did have a difficult swelling to the left big toe with infected callus and possible abscess - Labs CBC & Chem 7: 11/16/23 12:08 11/17/23 07:20 Labs: Microbiology - Last 24 Hours (Table) 11/15/23 13:45 Blood Culture Gram Stain - Final Blood Blood Culture - Preliminary Presumptive Staph aureus 11/18/23 05:49 Blood Culture - Preliminary Blood 11/16/23 16:19 Blood Culture - Preliminary Blood Assessment and Plan (1) Cellulitis of right leg Current Visit: Yes Status: Acute Code(s): L03.115 - CELLULITIS OF RIGHT LOWER LIMB SNOMED Code(s): 21440018779025489 (2) MSSA bacteremia Current Visit: Yes Status: Acute Code(s): R78.81 - BACTEREMIA; B95.61 - METHICILLIN SUSCEP STAPH INFCT CAUSING DIS CLASSD ELSWHR SNOMED Code(s): 331455950 Plan: 1patient with Staph aureus bacteremia source likely right lower extremity area of cellulitis and there is concern for possible abscess likely from Staph aureus, blood culture has been repeated document clearance of bacteremia 2-patient blood culture has been finalized with MSSA repeat blood culture currently pending 3-patient right leg seem to have shown improvement however the patient will have possible infected callus to the left foot at the base of the big toe will get a vascular surgery evaluation for I&D patient to continue with the cefazolin Dictation was produced using [employer] dictation software. please excuse any grammatical, word or spelling errors. Time with Patient: Less than 30
[2023-11-20 08:36] LABS: Basophils # (A) 0.03 X 10*3/uL (0.00-0.10); Basophils % (A) 0.4 %; Eosinophils # (A) 0 X 10*3/uL (0.04-0.35); Eosinophils % (A) 0 %; HCT 37.8 % (39.6-50.0); Lymphocytes # (A) 0.96 X 10*3/uL (0.90-5.00); Lymphocytes % (A) 11.3 %; MCH 29.6 pg (27.0-32.0); MCHC 31.7 g/dL (32.0-37.0); MCV 93.1 FL (80.0-97.0); Mean Platelet Volume 10.8 FL (9.5-12.2); Monocytes # (A) 0.68 X 10*3/uL (0.20-1.00); NRBC Per 100 WBC 0 X 10*3/uL (0.00-0.01); Neutrophils # (A) 6.77 X 10*3/uL (1.80-7.70); Neutrophils % (A) 79.8 %; Platelet Count 453 X 10*3/uL (140-440); RBC 4.06 X 10*6/uL (4.40-5.60); RDW 13.2 % (11.5-14.5); WBC 8.48 X 10*3/uL (4.50-10.00)
[2023-11-20 08:51] LABS: BUN/Creat Ratio 19.56 Ratio (12.00-20.00); Blood Urea Nitrogen 17.6 mg/dL (9.0-27.0); Calcium 9.9 mg/dL (8.7-10.3); Carbon Dioxide 26.3 mmol/L (21.6-31.8); Chloride 95 mmol/L (96-109); Glucose 87 mg/dL (70-110); Potassium 4.9 mmol/L (3.5-5.5); Sodium 134 mmol/L (135-145)
--- NOTE | 2023-11-20 11:07 | P.GSCN ---
History of Present Illness Consult date: 11/20/23 Reason for Consult: Left foot abscess Requesting physician: Yuri Silva History of present illness: This is a pleasant 63-year-old male with a history of cardiomyopathy, hypertension, 30-year smoker who presented to the emergency department with concerns of infection of the left foot. Patient is somewhat of a poor historian. Currently he had presented to our emergency department 2 prior times on 11/12/2023 and 11/14/2023 and was sent home. He came in with concerns for right foot pain and swelling as well as hypotension. He was sent home. He was then sent back in with concerns of infection of the left foot. He states that he got a new pair of boots that were lace up and he had noted after wearing them that he had a wound to the right leg which he believes started about 2 weeks ago. He was admitted for right leg cellulitis and bacteremia. He then noticed on his left foot that he had pain and swelling near the great toe on the bottom of his foot. He states that this is been there for about a week. Patient has positive blood cultures for presumptive Staph aureus. Vascular surgery was consulted for left foot abscess. Patient states that his heart only works at 30% and he was supposed to have a procedure done last week with Dr. Steinberg. He currently denies any shortness of breath or chest pain. States that he has a significant amount of pain on the left foot and is unable to walk on it. Denies any fevers or chills. He had a CT of the left foot that is concerning for phlegmon/early abscess. Infectious diseases following for bacteremia and right leg cellulitis. He is currently on IV Kefzol. Review of Systems A 14 point review systems was completed all pertinent positives and negatives as stated in the HPI. Past Medical History Past Medical History: Cancer, GERD/Reflux, Hyperlipidemia, Hypertension, Osteoarthritis (OA) Additional Past Medical History / Comment(s): INPT 10-20-22 FOR VTACH AND MASS ON LT LUNG History of Any Multi-Drug Resistant Organisms: None Reported Past Surgical History: Hernia Repair, Tonsillectomy Additional Past Surgical History / Comment(s): COLONOSCOPY , rt cataract 11/03/21,bronchoscopy Past Anesthesia/Blood Transfusion Reactions: No Reported Reaction Additional Past Anesthesia/Blood Transfusion Reaction / Comm: no hx blood t ransfusion Past Psychological History: No Psychological Hx Reported Smoking Status: Current every day smoker Past Alcohol Use History: None Reported Additional Past Alcohol Use History / Comment(s): STARTED SMOKING AT AGE 16 SMOKES < 1ppd Past Drug Use History: None Reported - Past Family History Mother Family Medical History: No Reported History Father Family Medical History: Renal Disease Medications and Allergies Home Medications Medication Instructions Recorded Confirmed Type lisinopriL [Zestril] 20 mg PO DAILY 12/20/22 11/16/23 History Ergocalciferol (Vitamin D2) 1,250 mcg PO TU 11/14/23 11/16/23 History [Drisdol (50,000 Iu)] Levothyroxine Sodium [Synthroid] 25 mcg PO DAILY 11/14/23 11/16/23 History carvediloL [Coreg] 6.25 mg PO BID 11/14/23 11/16/23 History Furosemide [Lasix] 10 mg PO DAILY 11/16/23 11/16/23 History Allergies Allergy/AdvReac Type Severity Reaction Status Date / Time No Known Allergies Allergy Verified 11/16/23 13:08 Surgical - Exam Vital Signs Temp Pulse Resp BP Pulse Ox 98.3 F 54 L 20 118/75 100 11/16/23 11:43 11/16/23 11:43 11/16/23 11:43 11/16/23 11:43 11/16/23 11:43 General appearance: The patient is alert, oriented, appears in no acute distress. HET: Head is normocephalic and atraumatic. Pupils are equal and reactive. Neck: Supple. Heart: Regular. Lungs: Equal expansion, normal respiratory effort. Abdomen: Soft, nondistended. Extremities: Palpable femoral and PT pulses. Nonpalpable DP pulses bilaterally. Right lower extremity medial aspect with wound, with fluctuance. Nondraining. Left foot plantar aspect near ball of foot and great toe with erythema and fluctuance. Neurological: No focal deficits. Alert and oriented. Results - Labs 11/20/23 03:42 11/20/23 03:42 Abnormal Lab Results - Last 24 Hours (Table) 11/20/23 11/20/23 Range/Units 03:42 03:42 RBC 4.06 L (4.40-5.60) X 10*6/uL Hgb 12.0 L (13.0-17.0) g/dL Hct 37.8 L (39.6-50.0) % MCHC 31.7 L (32.0-37.0) g/dL Plt Count 453 H (140-440) X 10*3/uL Eosinophils # 0 L (0.04-0.35) X 10*3/uL Sodium 134 L (135-145) mmol/L Chloride 95 L (96-109) mmol/L Anion Gap 12.70 H (4.00-12.00) mmol/L Microbiology - Last 24 Hours (Table) 11/16/23 16:19 Blood Culture - Preliminary Blood 11/15/23 13:45 Blood Culture Gram Stain - Final Blood Blood Culture - Preliminary Presumptive Staph aureus 11/18/23 05:49 Blood Culture - Preliminary Blood Diabetes panel 11/20/23 Range/Units 03:42 Sodium 134 L (135-145) mmol/L Potassium 4.9 (3.5-5.5) mmol/L Chloride 95 L (96-109) mmol/L Carbon Dioxide 26.3 (21.6-31.8) mmol/L BUN 17.6 (9.0-27.0) mg/dL Creatinine 0.9 (0.6-1.5) mg/dL Glucose 87 (70-110) mg/dL Calcium 9.9 (8.7-10.3) mg/dL Calcium panel 11/20/23 Range/Units 03:42 Calcium 9.9 (8.7-10.3) mg/dL Pituitary panel 11/20/23 Range/Units 03:42 Sodium 134 L (135-145) mmol/L Potassium 4.9 (3.5-5.5) mmol/L Chloride 95 L (96-109) mmol/L Carbon Dioxide 26.3 (21.6-31.8) mmol/L BUN 17.6 (9.0-27.0) mg/dL Creatinine 0.9 (0.6-1.5) mg/dL Glucose 87 (70-110) mg/dL Calcium 9.9 (8.7-10.3) mg/dL Adrenal panel 11/20/23 Range/Units 03:42 Sodium 134 L (135-145) mmol/L Potassium 4.9 (3.5-5.5) mmol/L Chloride 95 L (96-109) mmol/L Carbon Dioxide 26.3 (21.6-31.8) mmol/L BUN 17.6 (9.0-27.0) mg/dL Creatinine 0.9 (0.6-1.5) mg/dL Glucose 87 (70-110) mg/dL Calcium 9.9 (8.7-10.3) mg/dL - Imaging Comments: Arterial ultrasound: BEVERLY right 0.77, left 0.92. Reported as moderate right and mild left peripheral vascular disease. CT left foot reports soft tissue ulcer along the ball of the foot below the great toe. Heterogeneous fluid density here measuring 4.9 x 2.0 x 1.9 cm. Findings suggest phlegmon and early abscess. No underlying bony destruction to suggest a contentious osteomyelitis at this time. Hallux rigidus and additional scattered moderate midfoot OA Assessment and Plan Assessment: 1. Left foot abscess 2. Right lower extremity wound and cellulitis 3. Nicotine dependence 4. Cardiomyopathy Plan: 1. Patient is tentatively scheduled tomorrow for left foot I&D and right lower extremity excisional debridement 2. Cardiology consulted for cardiac clearance for impending surgery 3. Patient may have a light breakfast tomorrow then n.p.o. 4. Continue with antibiotic recommendations from infectious disease 5. Importance of smoking cessation discussed with patient. Nicotine patch offered. Thank you for this consultation, we will continue to follow. The impression and plan of care has been dictated as directed. I performed a history and examination of this patient, discussed the same with the dictator. I agree with the dictator's note ,documented as a scribe. Any additional findings or plans will be noted.
--- NOTE | 2023-11-20 14:26 | P.CRDCN ---
History of Present Illness Consult date: 11/20/23 Reason for Consult (text): Surgical clearance for I&D History of present illness: History of present illness: This is a 63-year-old male patient of Dr. Steinberg with past medical history of lung cancer on immunotherapy, nonsustained ventricular tachycardia, systolic heart failure with EF of 35%, hypertension, hypothyroidism, lower extremity c ellulitis and bacteremia. We have been asked to evaluate the patient for surgical clearance for I&D. Patient presented to the hospital on 11/15 because he was called back to the hospital due to blood cultures positive for MSSA. Patient has been seen by infectious disease for left lower extremity cellulitis and abscess secondary to bacteremia. Subsequently vascular surgery has been consulted with plan for I&D tomorrow. Patient states that he has had ongoing dyspnea on exertion and is taking him longer to catch his breath. He was scheduled for cardiac catheterization last week but this was canceled for some reason. Again this was a recommendation from his last office visit and would also recommend him to have cardiac catheterization in the near future. Patient is an active smoker of 1/2-3/4 of a pack per day. EKG sinus rhythm with right bundle branch block and left anterior fascicular block, no ischemic changes. CT foot: Soft tissue ulcer along the ball of the foot below the great toe measuring 4.9 x 2 x 1.9 cm. Suggest phlegmon or early abscess. WBC 8.4, hemoglobin 12, platelet count 453. Sodium 134, potassium 4.9, chloride 95, BUN 17 creatinine 0.9. Alkaline phosphatase 145. C-reactive protein 21.8 Echocardiogram performed on 11/16/2023 reveals severe LV dysfunction with EF of 35 to 40%. Mild RV enlargement. Home cardiac medications: Coreg 6.25 mg twice daily, Lasix 10 mg daily, lisinopril 20 mg daily, patient also on levothyroxine 25 mcg daily. Lexiscan stress test performed 01/12/2023 in the office revealed EF 33% with stress-induced ischemia not excluded. Holter monitor performed 01/19/2023 revealed 4% PAC burden, 45 runs of nonsustained ventricular tachycardia, 16% PVC burden, 2 different morphologies. Review Of Systems: At the time of my exam: CONSTITUTIONAL: Denies fever or chills. HEENT: Denies blurred vision, vision changes, or eye pain. Denies hemoptysis CARDIOVASCULAR: Denies chest pain. Denies orthopnea. Denies PND. Denies palpitations RESPIRATORY: Denies shortness of breath. Reports dyspnea on exertion. GASTROINTESTINAL: Denies abdominal pain. Denies nausea or vomiting. HEMATOLOGIC: Denies bleeding disorders. GENITOURINARY: Denies any blood in urine. SKIN: Denies pruitis. Denies rash. + celllulitis/abscess. Physical examination: Gen: This is a 63-year-old male VS: reviewed. Blood pressure 117/61, heart rate 69, pulse ox 97% on room air. Patient has been afebrile. HEENT: Head is atraumatic, normocephalic. Pupils equal, round. Sclerae is anicteric. NECK: Supple. No JVD. LUNGS: Clear to auscultation. No wheezes or rhonchi. No intercostal retractions. HEART: Irregular rate and rhythm. No murmur. ABDOMEN: Soft No tenderness. EXTREMITIES: No pedal edema. Left great toe has mass/fluid collection on the plantar surface distal metatarsal. NEUROLOGICAL: Patient is awake, alert and oriented x3. Assessment: MSSA bacteremia Left lower extremity cellulitis and abscess Lactic acidosis Dyspnea on exertion High PVC burden History of ventricular tachycardia Chronic systolic heart failure Cardiomyopathy, possibly ischemic Hypertension Tobacco use and dependence Plan: Continue patient's home cardiac medications Patient is cleared for surgical intervention with recommendations for local anesthesia, avoid general anesthesia and propofol. Patient is currently euvolemic without signs of heart failure. We will plan to start patient on Aldactone after surgery. Further recommendations to follow based upon clinical course Thank you kindly for this consultation. Nurse practitioner note has been reviewed, I agree with documented findings and plan of care. Patient was seen and examined. Past Medical History Past Medical History: Cancer, GERD/Reflux, Hyperlipidemia, Hypertension, Osteoarthritis (OA) Additional Past Medical History / Comment(s): INPT 10-20-22 FOR VTACH AND MASS ON LT LUNG History of Any Multi-Drug Resistant Organisms: None Reported Past Surgical History: Hernia Repair, Tonsillectomy Additional Past Surgical History / Comment(s): COLONOSCOPY , rt cataract ,bronchoscopy Past Anesthesia/Blood Transfusion Reactions: No Reported Reaction Additional Past Anesthesia/Blood Transfusion Reaction / Comment(s): no hx blood transfusion Past Psychological History: No Psychological Hx Reported Smoking Status: Current every day smoker Past Alcohol Use History: None Reported Additional Past Alcohol Use History / Comment(s): STARTED SMOKING AT AGE 16 SMOKES < 1ppd Past Drug Use History: None Reported - Past Family History Mother Family Medical History: No Reported History Father Family Medical History: Renal Disease Medications and Allergies Home Medications Medication Instructions Recorded Confirmed Type lisinopriL [Zestril] 20 mg PO DAILY 12/20/22 11/16/23 History Ergocalciferol (Vitamin D2) 1,250 mcg PO TU 11/14/23 11/16/23 History [Drisdol (50,000 Iu)] Levothyroxine Sodium [Synthroid] 25 mcg PO DAILY 11/14/23 11/16/23 History carvediloL [Coreg] 6.25 mg PO BID 11/14/23 11/16/23 History Furosemide [Lasix] 10 mg PO DAILY 11/16/23 11/16/23 History Allergies Allergy/AdvReac Type Severity Reaction Status Date / Time No Known Allergies Allergy Verified 11/16/23 13:08 Physical Exam Vitals: Vital Signs Temp Pulse Resp BP Pulse Ox 11/20/23 07:41 97.4 F L 69 18 117/61 97 11/20/23 01:41 98.3 F 75 17 124/62 98 11/19/23 19:57 98.4 F 69 18 117/64 98 11/19/23 16:55 74 128/69 11/19/23 13:05 98.3 F 68 20 103/53 97 Intake and Output 11/19/23 11/20/23 11/20/23 22:59 06:59 14:59 Other: Voiding Method Toilet Toilet Urinal Urinal # Voids 1 2 Weight 79.5 kg Results 11/20/23 03:42 11/20/23 03:42 CBC 11/20/23 Range/Units 03:42 WBC 8.48 (4.50-10.00) X 10*3/uL RBC 4.06 L (4.40-5.60) X 10*6/uL Hgb 12.0 L (13.0-17.0) g/dL Hct 37.8 L (39.6-50.0) % Plt Count 453 H (140-440) X 10*3/uL Comprehensive Metabolic Panel 11/20/23 Range/Units 03:42 Sodium 134 L (135-145) mmol/L Potassium 4.9 (3.5-5.5) mmol/L Chloride 95 L (96-109) mmol/L Carbon Dioxide 26.3 (21.6-31.8) mmol/L BUN 17.6 (9.0-27.0) mg/dL Creatinine 0.9 (0.6-1.5) mg/dL Glucose 87 (70-110) mg/dL Calcium 9.9 (8.7-10.3) mg/dL Current Medications Generic Name Dose Route Start Last Admin Trade Name Freq PRN Reason Stop Dose Admin Acetaminophen 650 mg 11/16/23 13:42 Acetaminophen Tab 325 Mg Tab PO Q6HR PRN Mild Pain or Fever > 100.5 Carvedilol 6.25 mg 11/16/23 17:30 11/20/23 08:25 Carvedilol 6.25 Mg Tab PO 6.25 mg AC-BID SAY Administration Furosemide 20 mg 11/18/23 14:30 11/20/23 08:25 Furosemide 20 Mg Tab PO 20 mg DAILY SAY Administration Heparin Sodium (Porcine) 5,000 unit 11/16/23 16:00 11/20/23 08:25 Heparin Sodium,Porcine 5,000 Unit/Ml 1 Ml Vial SQ 5,000 unit Q8HR SAY Administration Cefazolin Sodium 2 gm/ Sodium 50 mls @ 100 mls/hr 11/17/23 16:00 11/20/23 08:25 Chloride IVPB 100 mls/hr Q8HR SAY Administration Protocol Levothyroxine Sodium 25 mcg 11/17/23 06:30 11/20/23 06:46 Levothyroxine 25 Mcg Tab PO 25 mcg DAILY@0630 SAY Administration Lisinopril 20 mg 11/17/23 09:00 11/20/23 08:25 Lisinopril 20 Mg Tab PO 20 mg DAILY SAY Administration Naloxone HCl 0.2 mg 11/16/23 13:42 Naloxone 0.4 Mg/Ml 1 Ml Vial IV Q2M PRN Opioid Reversal Ondansetron HCl 4 mg 11/16/23 13:42 Ondansetron 4 Mg/2 Ml Vial IVP Q8HR PRN Nausea And Vomiting Pantoprazole Sodium 40 mg 11/18/23 09:00 11/20/23 08:25 Pantoprazole 40 Mg Tablet PO 40 mg DAILY SAY Administration Intake and Output 11/19/23 11/20/23 11/20/23 22:59 06:59 14:59 Other: Voiding Method Toilet Toilet Urinal Urinal # Voids 1 2 Weight 79.5 kg 11/20/23 03:42 11/20/23 03:42
--- NOTE | 2023-11-20 15:49 | P.PN ---
Subjective Progress Note Date: 11/20/23 Hospital Course: 63-year-old male with a history of lung cancer on immunotherapy, systolic heart failure with a EF 35%, hypothyroidism, hypertension presenting with lower extremity right cellulitis and bacteremia. In the ED, temperature was 98.3, pulse 54, respiratory rate 20, blood pressure 118/75, saturating at 100% on room air. WBC 8.6, hemoglobin 13.4, platelet 434, ESR pending, creatinine 0.81, lactate 2.7, CRP 23.3. Patient admitted for further evaluation, ID consulted, started on IV vancomycin. Found to have MSSA bacteremia. Now switch to cefazolin. 1 out of 2 blood cultures came back positive again for Staph aureus. Echocardiogram showed severe LV dysfunction, mild RV enlargement, EF 35 to 40%, grade 1 diastolic dysfunction, no vegetations noted. Left foot CT showed ulcer along the ball of the foot below the great toe, phlegmon versus early abscess. Surgery tomorrow. Subjective: Patient seen and examined at bedside. No acute events overnight. Pertinent positives and negatives as discussed above, a complete review of systems was performed and all other systems are negative. Vitals Signs Reviewed. General: nontoxic, no distress, appears at stated age Derm: warm, dry, erythematous and edematous right medial lower extremity induration, no drainage, also has significant edema erythema of right foot, abscess under left foot Head: atraumatic, normocephalic, symmetric Eyes: EOMI, no lid lag, anicteric sclera, pupils equal round reactive to light ENT: Nose and ears atraumatic Neck: No thyromegaly, supple Mouth: no lip lesion, mucus membranes moist Cardiovascular: S1S2 reg, no murmur, no edema Lungs: clear to auscultation bilateral, no rhonchi, no rales, no wheeze, no accessory muscle use Abdominal: soft, nontender to palpation, no guarding, no appreciable organomegaly Ext: no gross muscle atrophy, muscle strength muscle strength 5 out of 5 in all 4 extremities, no contractures Neuro: CN II-XII grossly intact Psych: Alert, oriented, appropriate affect Data Reviewed Today: Pertinent Labs: Hemoglobin 12, creatinine 0.9 Imaging: No new imaging Assessment and Plan: MSSA bacteremia Right lower extremity cellulitis Left foot abscess Lactic acidosis - ID following Discussed management with vascular surgery, pending surgical procedure tomorrow -on IV cefazolin, 1 out of 2 blood cultures came back positive for MSSA again, repeat blood cultures pending -Echocardiogram did not show any vegetations Chronic: Systolic cardiomyopathy, not in exacerbation Hypertension DVT ppx: Subcu heparin Code status: Full code Anticipated discharge place: Pending clinical course Anticipated discharge time: Pending clinical course Objective - Vital Signs Vital signs: Vital Signs Temp 98.2 F 11/20/23 14:00 Pulse 51 L 11/20/23 14:00 Resp 19 11/20/23 14:00 BP 101/48 11/20/23 14:00 Pulse Ox 99 11/20/23 14:00 FiO2 Intake & Output 11/19/23 11/20/23 11/20/23 18:59 06:59 18:59 Output Total 250 Balance -250 Weight 79.5 kg Output: Urine 250 Other: Voiding Method Toilet Toilet Toilet Urinal Urinal Urinal # Voids 1 2 - Labs CBC & Chem 7: 11/20/23 03:42 11/20/23 03:42 Labs: Abnormal Lab Results - Last 24 Hours (Table) 11/20/23 11/20/23 Range/Units 03:42 03:42 RBC 4.06 L (4.40-5.60) X 10*6/uL Hgb 12.0 L (13.0-17.0) g/dL Hct 37.8 L (39.6-50.0) % MCHC 31.7 L (32.0-37.0) g/dL Plt Count 453 H (140-440) X 10*3/uL Eosinophils # 0 L (0.04-0.35) X 10*3/uL Sodium 134 L (135-145) mmol/L Chloride 95 L (96-109) mmol/L Anion Gap 12.70 H (4.00-12.00) mmol/L Microbiology - Last 24 Hours (Table) 11/18/23 05:49 Blood Culture - Preliminary Blood 11/16/23 16:19 Blood Culture - Preliminary Blood 11/15/23 13:45 Blood Culture Gram Stain - Final Blood Blood Culture - Preliminary Presumptive Staph aureus
--- NOTE | 2023-11-21 08:16 | P.PN ---
Subjective Progress Note Date: 11/20/23 Principal diagnosis: Reason for follow-up is MSSA bacteremia right leg cellulitis Patient is a 63-year male with multiple comorbidity recently evaluated at [facility] for right lower extremity cellulitis discharged on oral antibiotics presenting back with positive blood culture has been diagnosed with right lower extremity abscess cellulitis with secondary bacteremia. On today's evaluation that is 11/20/2023,the patient denies any fever or any chills, patient is breathing comfortably on room air, the patient denies chest pain shortness of breath and no significant cough, patient denies abdominal pain, no nausea vomiting or diarrhea, the patient has been worsening pain to the left foot area. White count is 8.48, creatinine 0.9 blood culture repeat has been negative so far patient did have a CT of the left foot soft tissue ulcer and heterogeneous fluid collection Objective - Vital Signs Vital signs: Vital Signs Temp 97.4 F L 11/20/23 07:41 Pulse 69 11/20/23 07:41 Resp 18 11/20/23 07:41 BP 117/61 11/20/23 07:41 Pulse Ox 97 11/20/23 07:41 FiO2 Intake & Output 11/19/23 11/20/23 11/20/23 18:59 06:59 18:59 Output Total 250 Balance -250 Weight 79.5 kg Output: Urine 250 Other: Voiding Method Toilet Toilet Toilet Urinal Urinal Urinal # Voids 1 2 - Exam GENERAL DESCRIPTION: Middle-age male lying in bed in no distress RESPIRATORY SYSTEM: Unlabored breathing , decreased breath sounds at bases HEART: S1 S2 regular rate and rhythm , ABDOMEN: Soft , no tenderness EXTREMITIES: Right lower leg area with no drainage, patient did have a difficult swelling to the left big toe with infected callus and possible abscess - Labs CBC & Chem 7: 11/20/23 03:42 11/20/23 03:42 Labs: Abnormal Lab Results - Last 24 Hours (Table) 11/20/23 11/20/23 Range/Units 03:42 03:42 RBC 4.06 L (4.40-5.60) X 10*6/uL Hgb 12.0 L (13.0-17.0) g/dL Hct 37.8 L (39.6-50.0) % MCHC 31.7 L (32.0-37.0) g/dL Plt Count 453 H (140-440) X 10*3/uL Eosinophils # 0 L (0.04-0.35) X 10*3/uL Sodium 134 L (135-145) mmol/L Chloride 95 L (96-109) mmol/L Anion Gap 12.70 H (4.00-12.00) mmol/L Microbiology - Last 24 Hours (Table) 11/16/23 16:19 Blood Culture - Preliminary Blood 11/15/23 13:45 Blood Culture Gram Stain - Final Blood Blood Culture - Preliminary Presumptive Staph aureus 11/18/23 05:49 Blood Culture - Preliminary Blood Assessment and Plan (1) Cellulitis of right leg Current Visit: Yes Status: Acute Code(s): L03.115 - CELLULITIS OF RIGHT LOWER LIMB SNOMED Code(s): 47396107489267931 (2) MSSA bacteremia Current Visit: Yes Status: Acute Code(s): R78.81 - BACTEREMIA; B95.61 - METHICILLIN SUSCEP STAPH INFCT CAUSING DIS CLASSD [id number] SNOMED Code(s): 995218577 (3) Foot abscess, left Current Visit: Yes Status: Acute Code(s): L02.612 - CUTANEOUS ABSCESS OF LEFT FOOT SNOMED Code(s): 31545724850475647 Plan: 1patient with Staph aureus bacteremia source likely right lower extremity area of cellulitis and there is concern for possible abscess likely from Staph aureus, blood culture has been repeated document clearance of bacteremia 2-patient blood culture has been finalized with MSSA repeat blood culture currently pending 3-patient with a left foot abscess/infected callus vascular surgery has seen the patient and planning for surgical drainage tomorrow patient is covered with the cefazolin and monitor clinical course closely Dictation was produced using [employer] dictation software. please excuse any grammatical, word or spelling errors. Time with Patient: Less than 30
--- NOTE | 2023-11-21 11:56 | P.PN ---
Subjective Progress Note Date: 11/21/23 Reason for Consult (text): Surgical clearance for I&D History of present illness: History of present illness: This is a 63-year-old male patient of Dr. Steinberg with past medical history of lung cancer on immunotherapy, nonsustained ventricular tachycardia, systolic heart failure with EF of 35%, hypertension, hypothyroidism, lower extremity cellulitis and bacteremia. We have been asked to evaluate the patient for surgical clearance for I&D. Patient presented to the hospital on 11/15 because he was called back to the hospital due to blood cultures positive for MSSA. Patient has been seen by infectious disease for left lower extremity cellulitis and abscess secondary to bacteremia. Subsequently vascular surgery has been consulted with plan for I&D tomorrow. Patient states that he has had ongoing dyspnea on exertion and is taking him longer to catch his breath. He was scheduled for cardiac catheterization last week but this was canceled for some reason. Again this was a recommendation from his last office visit and would also recommend him to have cardiac catheterization in the near future. Patient is an active smoker of 1/2-3/4 of a pack per day. EKG sinus rhythm with right bundle branch block and left anterior fascicular block, no ischemic changes. CT foot: Soft tissue ulcer along the ball of the foot below the great toe bisi uring 4.9 x 2 x 1.9 cm. Suggest phlegmon or early abscess. WBC 8.4, hemoglobin 12, platelet count 453. Sodium 134, potassium 4.9, chloride 95, BUN 17 creatinine 0.9. Alkaline phosphatase 145. C-reactive protein 21.8 Echocardiogram performed on 11/16/2023 reveals severe LV dysfunction with EF of 3 5 to 40%. Mild RV enlargement. Home cardiac medications: Coreg 6.25 mg twice daily, Lasix 10 mg daily, lisinopril 20 mg daily, patient also on levothyroxine 25 mcg daily. Lexiscan stress test performed 01/12/2023 in the office revealed EF 33% with stress-induced ischemia not excluded. Holter monitor performed 01/19/2023 revealed 4% PAC burden, 45 runs of nonsustained ventricular tachycardia, 16% PVC burden, 2 different morphologies. 11/20 Patient is seen today in follow-up. He is scheduled for debridement this afternoon. He states that the wound on his left foot opened while he was in the bathroom and is now draining. He denies having any chest pain, no shortness of breath, no lightheadedness or dizziness. Blood pressure 126/65, heart rate 76, pulse ox 95% on room air. Physical examination: Gen: This is a 63-year-old male in no acute distress VS: reviewed. HEENT: Head is atraumatic, normocephalic. Pupils equal, round. Sclerae is anicteric. NECK: Supple. No JVD. LUNGS: Clear to auscultation. No wheezes or rhonchi. No intercostal retractions. HEART: Irregular rate and rhythm. No murmur. ABDOMEN: Soft No tenderness. EXTREMITIES: No pedal edema. Left great toe has mass/fluid collection on the plantar surface distal metatarsal. NEUROLOGICAL: Patient is awake, alert and oriented x3. Assessment: MSSA bacteremia Left lower extremity cellulitis and abscess Lactic acidosis Dyspnea on exertion High PVC burden History of ventricular tachycardia Chronic systolic heart failure Cardiomyopathy, possibly ischemic Hypertension Tobacco use and dependence Plan: Continue patient's home cardiac medications Patient is cleared for surgical intervention with recommendations for local anesthesia, avoid general anesthesia and propofol. Patient is currently euvolemic without signs of heart failure. We will plan to start patient on Aldactone after surgery. Cardiology will sign off this case and follow on an as-needed basis. Please reconsult for any new concerns. Patient may follow-up in the office in one to 2 weeks. Nurse practitioner note has been reviewed, I agree with documented findings and plan of care. Patient was seen and examined. Objective - Vital Signs Vital signs: Vital Signs Temp 97.8 F 11/21/23 07:11 Pulse 76 11/21/23 07:11 Resp 18 11/21/23 07:11 BP 126/65 11/21/23 07:11 Pulse Ox 95 11/21/23 07:11 FiO2 Intake & Output 11/20/23 11/21/23 11/21/23 18:59 06:59 18:59 Weight 78.7 kg Other: Voiding Method Toilet Toilet Urinal Urinal # Voids 1 2 - Labs CBC & Chem 7: 11/20/23 03:42 11/20/23 03:42 Labs: Abnormal Lab Results - Last 24 Hours (Table) 11/20/23 11/20/23 Range/Units 03:42 03:42 RBC 4.06 L (4.40-5.60) X 10*6/uL Hgb 12.0 L (13.0-17.0) g/dL Hct 37.8 L (39.6-50.0) % MCHC 31.7 L (32.0-37.0) g/dL Plt Count 453 H (140-440) X 10*3/uL Eosinophils # 0 L (0.04-0.35) X 10*3/uL Sodium 134 L (135-145) mmol/L Chloride 95 L (96-109) mmol/L Anion Gap 12.70 H (4.00-12.00) mmol/L Microbiology - Last 24 Hours (Table) 11/18/23 05:49 Blood Culture - Preliminary Blood
[2023-11-21] MEDS: HYDROmorphone 1 MG/ML 1 ML SYRINGE IVP STA ×2 (12:13→16:36)
--- NOTE | 2023-11-21 12:17 | P.PN ---
Subjective Progress Note Date: 11/21/23 Principal diagnosis: Left foot abscess Patient seen and examined today as a follow-up for left foot abscess. He was tentatively scheduled for afternoon. Patient has been NPO. He has been afebrile. He remains on IV antibiotics. Objective - Vital Signs Vital signs: Vital Signs Temp 97.8 F 11/21/23 07:11 Pulse 76 11/21/23 07:11 Resp 18 11/21/23 07:11 BP 126/65 11/21/23 07:11 Pulse Ox 95 11/21/23 07:11 FiO2 Intake & Output 11/20/23 11/21/23 11/21/23 18:59 06:59 18:59 Weight 78.7 kg Other: Voiding Method Toilet Toilet Urinal Urinal # Voids 1 2 - Exam general appearance: The patient is alert, oriented, appears in no acute distress. HET: Head is normocephalic and atraumatic. Pupils are equal and reactive. Neck: Supple. Heart: Regular. Lungs: Equal expansion, normal respiratory effort. Abdomen: Soft, nontender, nondistended. Extremities: Right lower extremity medial aspect with varicose vein and ulcer, no drainage noted. Left foot plantar aspect of the ball of the foot near great toe fluctuance, erythema of the great toe. Good capillary refill bilaterally. Neurological: No focal deficits. Strength and sensation are grossly intact. - Labs CBC & Chem 7: 11/20/23 03:42 11/20/23 03:42 Labs: Microbiology - Last 24 Hours (Table) 11/18/23 05:49 Blood Culture - Preliminary Blood Assessment and Plan Assessment: 1. Left foot abscess 2. Right lower extremity wound and cellulitis 3. Nicotine dependence 4. Cardiomyopathy Plan: 1. Patient is tentatively scheduled tomorrow for left foot I&D and right lower extremity excisional debridement 2. Cardiology consulted for cardiac clearance, patient is cleared by cardiology to undergo I&D/excisional debridement with regional or local 3. MPL 4. Continue with antibiotic recommendations from infectious disease 5. Importance of smoking cessation discussed with patient. Nicotine patch offered. 6. Possible I&D at the bedside. 7. Thera honey to right lower extremity ulcer Thank you for this consultation, we will continue to follow. The impression and plan of care has been dictated as directed. Dr.Cuppari I performed a history and examination of this patient, discussed the same with the dictator. I agree with the dictator's note ,documented as a scribe. Any additional findings or plans will be noted.
--- NOTE | 2023-11-21 15:10 | P.PN ---
Subjective Progress Note Date: 11/21/23 Hospital Course: 63-year-old male with a history of lung cancer on immunotherapy, systolic heart failure with a EF 35%, hypothyroidism, hypertension presenting with lower extremity right cellulitis and bacteremia. In the ED, temperature was 98.3, pulse 54, respiratory rate 20, blood pressure 118/75, saturating at 100% on room air. WBC 8.6, hemoglobin 13.4, platelet 434, ESR pending, creatinine 0.81, lactate 2.7, CRP 23.3. Patient admitted for further evaluation, ID consulted, started on IV vancomycin. Found to have MSSA bacteremia. Now switch to cefazolin. 1 out of 2 blood cultures came back positive again for Staph aureus. Echocardiogram showed severe LV dysfunction, mild RV enlargement, EF 35 to 40%, grade 1 diastolic dysfunction, no vegetations noted. Left foot CT showed ulcer along the ball of the foot below the great toe, phlegmon versus early abscess. Surgery pending today Subjective: Patient seen and examined at bedside. No acute events overnight. Pertinent positives and negatives as discussed above, a complete review of systems was performed and all other systems are negative. Vitals Signs Reviewed. General: nontoxic, no distress, appears at stated age Derm: warm, dry, erythematous and edematous right medial lower extremity induration, no drainage, also has significant edema erythema of right foot, abscess under left foot Head: atraumatic, normocephalic, symmetric Eyes: EOMI, no lid lag, anicteric sclera, pupils equal round reactive to light ENT: Nose and ears atraumatic Neck: No thyromegaly, supple Mouth: no lip lesion, mucus membranes moist Cardiovascular: S1S2 reg, no murmur, no edema Lungs: clear to auscultation bilateral, no rhonchi, no rales, no wheeze, no accessory muscle use Abdominal: soft, nontender to palpation, no guarding, no appreciable organomegaly Ext: no gross muscle atrophy, muscle strength muscle strength 5 out of 5 in all 4 extremities, no contractures Neuro: CN II-XII grossly intact Psych: Alert, oriented, appropriate affect Data Reviewed Today: Pertinent Labs: No new labs Imaging: No new imaging Assessment and Plan: MSSA bacteremia Right lower extremity cellulitis Left foot abscess Lactic acidosis - ID following -Discussed management with vascular surgery, surgical intervention today -on IV cefazolin, 1 out of 2 blood cultures came back positive for MSSA again, repeat blood cultures pending -Echocardiogram did not show any vegetations Cardiology note reviewed, optimized for surgery, likely started on Aldactone after procedure Chronic: Systolic cardiomyopathy, not in exacerbation Hypertension DVT ppx: Subcu heparin Code status: Full code Anticipated discharge place: Pending clinical course Anticipated discharge time: Pending clinical course Objective - Vital Signs Vital signs: Vital Signs Temp 97.9 F 11/21/23 13:07 Pulse 65 11/21/23 13:07 Resp 20 11/21/23 13:07 BP 104/63 11/21/23 13:07 Pulse Ox 96 11/21/23 13:07 FiO2 Intake & Output 11/20/23 11/21/23 11/21/23 18:59 06:59 18:59 Weight 78.7 kg Other: Voiding Method Toilet Toilet Urinal Urinal # Voids 1 2 - Labs CBC & Chem 7: 11/20/23 03:42 11/20/23 03:42 Labs: Microbiology - Last 24 Hours (Table) 11/18/23 05:49 Blood Culture - Preliminary Blood
[2023-11-21] MEDS: SODIUM HYPOCHLORITE 0.25% 480 ML BOT MISCELLANE SCH (17:08)
--- NOTE | 2023-11-21 18:09 | P.PCN ---
Date of Procedure: 11/21/23 Preoperative Diagnosis: Left foot abscess Postoperative Diagnosis: Same Procedure(s) Performed: Excisional debridement of the left foot wound with drainage of abscess Anesthesia: none Surgeon: Aguilar Fernández Estimated Blood Loss (ml): 5 Pathology: other (Wound culture) Condition: stable Disposition: floor Indications for Procedure: 63-year-old gentleman who presented to the hospital secondary to left foot pain and was diagnosed with an abscess seen on CT scan. After discussion with the patient at the bedside no need for operative intervention and can be performed at the bedside which he was agreeable. Operative Findings: 7 x 3 cm wound with extension into the subcutaneous tissue approximately 0.5 mm. 2 punctate wounds noted in the subcutaneous tissue with some mild tunneling. Description of Procedure: After written and informed consent was obtained for the patient and all risk, benefits and complications were described the procedure was performed at the bedside. He was given pain medication prior to any procedure being performed. The area of the foot was prepped and draped in usual sterile fashion. Utilizing a 15 blade scalpel an incision was created at the abscess pocket with large amount of purulent drainage removed which was cultured at that time. The overlying skin was ischemic which was removed sharply with the 15 blade scalpel. Upon dissection into the subcutaneous tissues there was erythema noted and red granulation tissue underlying the wound and 2 punctate wounds within the subcutaneous tissue that had purulent drainage. This was expressed until no further purulence was noted. The area was then copiously irrigated with Dakin's and dressed with Dakin soaked gauze 4 x 4 and Kerlix. Patient tolerated the procedure well and will continue with local wound care.
[2023-11-22] MEDS ORDERED: SODIUM HYPOCHLORITE 0.25% 480 ML BOT MISCELLANE SCH (09:00)
[2023-11-22 09:02] LABS: Basophils # (A) 0.03 X 10*3/uL (0.00-0.10); Basophils % (A) 0.4 %; Eosinophils # (A) 0 X 10*3/uL (0.04-0.35); Eosinophils % (A) 0 %; HCT 38.1 % (39.6-50.0); HGB 12.2 g/dL (13.0-17.0); Lymphocytes # (A) 0.92 X 10*3/uL (0.90-5.00); Lymphocytes % (A) 13.4 %; MCH 29.2 pg (27.0-32.0); MCV 91.1 FL (80.0-97.0); Mean Platelet Volume 10.5 FL (9.5-12.2); Monocytes # (A) 0.59 X 10*3/uL (0.20-1.00); Monocytes % (A) 8.6 %; NRBC Per 100 WBC 0 X 10*3/uL (0.00-0.01); Neutrophils # (A) 5.31 X 10*3/uL (1.80-7.70); Platelet Count 451 X 10*3/uL (140-440); RBC 4.18 X 10*6/uL (4.40-5.60); RDW 13.4 % (11.5-14.5); WBC 6.89 X 10*3/uL (4.50-10.00)
[2023-11-22 09:26] LABS: BUN/Creat Ratio 31.67 Ratio (12.00-20.00); Blood Urea Nitrogen 28.5 mg/dL (9.0-27.0); Calcium 9.6 mg/dL (8.7-10.3); Carbon Dioxide 27.2 mmol/L (21.6-31.8); Chloride 98 mmol/L (96-109); Glucose 93 mg/dL (70-110); Potassium 4.9 mmol/L (3.5-5.5); Sodium 136 mmol/L (135-145)
--- NOTE | 2023-11-22 12:16 | P.CONS ---
History of Present Illness - Reason for Consult Consult date: 11/22/23 wound care - History of Present Illness This is a 63-year-old patient being seen on 4 S. for nonhealing ulceration to the left plantar forefoot. Patient underwent a incision and drainage with Dr. Bingham yesterday. The ulceration measures approximately 2.5 x 5 x 0.3 cm with fat layer exposed. Ulceration has slough and nonviable tissue present purulent drainage noted. Minimal granulation seen within the wound bed. Patient is an every day smoker he denies diabetes. CT did not show any bone destruction. Right lower extremity anterior medial aspect nonhealing ulceration with fat layer exposure with significant amount of eschar slough minimal to no granulation tissue noted. Measuring the Approximately 1 x 1 x 0.1 cm Review Of Systems: Constitutional: No fever, no chills, no night sweats. No weight change. No wea kness, fatigue or lethargy. No daytime sleepiness. Integumentary:reports wounds, no lesions. No rash or pruritus. No unusual bruising. No change in hair or nails. Physical exam: General Appearance: Alert, cooperative, no distress, appears stated age. Skin: See HPI all other Skin color, texture, tugor normal, no rashes or lesions. Neurologic: Alert oriented x3 Assessment: 1. Nonhealing ulceration left forefoot with fat layer exposure 2. Abscess 3. Nonhealing ulceration right lower extremity with fat layer exposure Plan: 1. Apply absorptive silver, Dakin's moistened gauze, dry gauze roll gauze and secure with paper tape. Change Monday. Right anterior medial ulceration apply honey gel and bordered foam. Change Monday. Discussed with patient the importance of offloading utilizing a walker when walking. Patient verbalized understanding. We will be happy to see him in the wound care center upon discharge. Patient is agreeable at this time. Thank you for the consultation any questions please contact the wound care center DNP note has been reviewed and discussed with Dr. Roland and the impression and plan of care has been directed as dictated. Past Medical History Past Medical History: Cancer, GERD/Reflux, Hyperlipidemia, Hypertension, Osteoarthritis (OA) Additional Past Medical History / Comment(s): INPT 10-20-22 FOR VTACH AND MASS ON LT LUNG History of Any Multi-Drug Resistant Organisms: None Reported Past Surgical History: Hernia Repair, Tonsillectomy Additional Past Surgical History / Comment(s): COLONOSCOPY , rt cataract 11/03/21,bronchoscopy Past Anesthesia/Blood Transfusion Reactions: No Reported Reaction Additional Past Anesthesia/Blood Transfusion Reaction / Comm: no hx blood transfusion Past Psychological History: No Psychological Hx Reported Smoking Status: Current every day smoker Past Alcohol Use History: None Reported Additional Past Alcohol Use History / Comment(s): STARTED SMOKING AT AGE 16 SMOKES < 1ppd Past Drug Use History: None Reported - Past Family History Mother Family Medical History: No Reported History Father Family Medical History: Renal Disease Medications and Allergies Home Medications Medication Instructions Recorded Confirmed Type lisinopriL [Zestril] 20 mg PO DAILY 12/20/22 11/16/23 History Ergocalciferol (Vitamin D2) 1,250 mcg PO TU 11/14/23 11/16/23 History [Drisdol (50,000 Iu)] Levothyroxine Sodium [Synthroid] 25 mcg PO DAILY 11/14/23 11/16/23 History carvediloL [Coreg] 6.25 mg PO BID 11/14/23 11/16/23 History Furosemide [Lasix] 10 mg PO DAILY 11/16/23 11/16/23 History Allergies Allergy/AdvReac Type Severity Reaction Status Date / Time No Known Allergies Allergy Verified 11/16/23 13:08 Physical Exam Vitals: Vital Signs Temp Pulse Resp BP Pulse Ox 11/22/23 07:45 98.2 F 88 20 121/81 100 11/22/23 05:54 71 135/68 11/22/23 01:33 97.8 F 55 L 18 135/65 97 11/21/23 17:24 98.8 F 78 20 105/48 100 11/21/23 13:07 97.9 F 65 20 104/63 96 Intake and Output 11/21/23 11/22/23 11/22/23 22:59 06:59 14:59 Intake Total 50 Balance 50 Intake: Intake, IV Titration 50 Amount ceFAZolin 2 gm In Sodium 50 Chloride 0.9% 50 ml @ 100 mls/hr IVPB Q8HR [facility] Rx# :[id number] Other: Voiding Method Toilet Urinal # Voids 3 2 Weight 77.6 kg Results CBC & Chem 7: 11/22/23 04:17 11/22/23 04:17 Labs: Abnormal Lab Results - Last 24 Hours (Table) 11/22/23 11/22/23 Range/Units 04:17 04:17 RBC 4.18 L (4.40-5.60) X 10*6/uL Hgb 12.2 L (13.0-17.0) g/dL Hct 38.1 L (39.6-50.0) % Plt Count 451 H (140-440) X 10*3/uL Eosinophils # 0 L (0.04-0.35) X 10*3/uL BUN 28.5 H (9.0-27.0) mg/dL BUN/Creatinine Ratio 31.67 H (12.00-20.00) Ratio Microbiology - Last 24 Hours (Table) 11/21/23 17:15 Gram Stain - Preliminary Foot - Left 11/16/23 16:19 Blood Culture - Final Blood 11/18/23 05:49 Blood Culture - Preliminary Blood Assessment and Plan (1) Non-pressure chronic ulcer of other part of left foot with fat layer exposed Current Visit: Yes Status: Acute Code(s): L97.522 - NON-PRS CHRONIC ULCER OTH PRT LEFT FOOT W FAT LAYER EXPOSED SNOMED Code(s): 42581860711895601 (2) Non-pressure ulcer of right lower extremity with fat layer exposed Current Visit: Yes Status: Acute Code(s): L97.912 - NON-PRS CHR ULC UNSP PRT OF R LOW LEG W FAT LAYER EXPOSED SNOMED Code(s): 81550175 (3) Foot abscess, left Current Visit: Yes Status: Acute Code(s): L02.612 - CUTANEOUS ABSCESS OF LEFT FOOT SNOMED Code(s): 00593962527081540
--- NOTE | 2023-11-22 12:38 | P.PN ---
Subjective Progress Note Date: 11/22/23 Principal diagnosis: Left foot abscess Patient is seen and examined today as a follow-up. States pain and pressure in the foot has improved. He underwent a bedside incision and drainage yesterday. Cultures were obtained and are currently pending. Patient has been afebrile. Objective - Vital Signs Vital signs: Vital Signs Temp 98.2 F 11/22/23 07:45 Pulse 88 11/22/23 07:45 Resp 20 11/22/23 07:45 BP 121/81 11/22/23 07:45 Pulse Ox 100 11/22/23 07:45 FiO2 Intake & Output 11/21/23 11/22/23 11/22/23 18:59 06:59 18:59 Intake Total 50 Balance 50 Weight 77.6 kg Intake: Intake, IV Titration 50 Amount ceFAZolin 2 gm In Sodium 50 Chloride 0.9% 50 ml @ 100 mls/hr IVPB Q8HR [facility] Rx# :[id number] Other: # Voids 3 2 - Exam general appearance: The patient is alert, oriented, appears in no acute distress. HET: Head is normocephalic and atraumatic. Pupils are equal and reactive. Neck: Supple. Heart: Regular. Lungs: Equal expansion, normal respiratory effort. Abdomen: Soft, nontender, nondistended. Extremities: Right lower extremity medial aspect with varicose vein and ulcer, no drainage noted. Left foot with dressing clean dry and intact. Neurological: No focal deficits. Strength and sensation are grossly intact. - Labs CBC & Chem 7: 11/22/23 04:17 11/22/23 04:17 Labs: Microbiology - Last 24 Hours (Table) 11/21/23 17:15 Gram Stain - Preliminary Foot - Left 11/16/23 16:19 Blood Culture - Final Blood 11/18/23 05:49 Blood Culture - Preliminary Blood Assessment and Plan Assessment: 1. Left foot abscess status post incision and drainage 2. Right lower extremity wound and cellulitis 3. Nicotine dependence 4. Cardiomyopathy Plan: 1. patient is status post incision and drainage with deep tissue cultures collected and sent 2. Continue with recommendations from infectious disease for antibiotics 3. Thera honey to right lower extremity wound 4. Consult to [facility] wound clinic for local wound care recommendations 5. Recommend outpatient follow-up with wound care 6. No further surgical intervention planned from vascular surgery Thank you for this consultation, we will sign off at this time. The impression and plan of care has been dictated as directed. Dr. Rubi I performed a history and examination of this patient, discussed the same with the dictator. I agree with the dictator's note ,documented as a scribe. Any additional findings or plans will be noted.
--- NOTE | 2023-11-22 16:39 | P.PN ---
Subjective Progress Note Date: 11/22/23 63-year-old male with a history of lung cancer on immunotherapy, systolic heart failure with a EF 35%, hypothyroidism, hypertension presenting with lower extremity right cellulitis and bacteremia. In the ED, temperature was 98.3, pulse 54, respiratory rate 20, blood pressure 118/75, saturating at 100% on room air. WBC 8.6, hemoglobin 13.4, platelet 434, ESR pending, creatinine 0.81, lactate 2.7, CRP 23.3. Patient admitted for further evaluation, ID consulted, started on IV vancomycin. Found to have MSSA bacteremia. Now switch to cefazolin. 1 out of 2 blood cultures came back positive again for Staph aureus. Echocardiogram showed severe LV dysfunction, mild RV enlargement, EF 35 to 40%, grade 1 diastolic dysfunction, no vegetations noted. Left foot CT showed ulcer along the ball of the foot below the great toe, phlegmon versus early abscess. Underwent I&D on 11/20. Cultures are pending. 11/17 BCx are pending. Patient seen and examined at bedside. No acute events overnight. Well control led pain in the right foot. He has no complaints. CBC Hg 12.2 Hct 38.1 Plt 451. BMP BUN 28.5. Vitals Signs Reviewed. General: nontoxic, no distress, appears at stated age Derm: warm, dry, right foot dressing c/d/i Head: atraumatic, normocephalic, symmetric Eyes: EOMI, no lid lag, anicteric sclera ENT: Nose and ears atraumatic Neck: No thyromegaly, supple Mouth: no lip lesion, mucus membranes moist Cardiovascular: S1S2 reg, no murmur, no edema Lungs: clear to auscultation bilateral, no rhonchi, no rales, no wheeze, no accessory muscle use Ext: no gross muscle atrophy, muscle strength muscle strength 5 out of 5 in all 4 extremities, no contractures Psych: Alert, oriented, appropriate affect MSSA bacteremia Right lower extremity cellulitis Left foot abscess Lactic acidosis - ID following - Status post I&D 11/20 awaiting cultures - on IV cefazolin, 1 out of 2 blood cultures came back positive for MSSA again, repeat blood cultures pending - Echocardiogram did not show any vegetations - Cardiology note reviewed, optimized for surgery, likely started on Aldactone after procedure Chronic: Systolic cardiomyopathy, not in exacerbation Hypertension DVT ppx: Subcu heparin Code status: Full code Anticipated discharge place: Pending clinical course Anticipated discharge time: Pending clinical course Objective - Vital Signs Vital signs: Vital Signs Temp 98.4 F 11/22/23 13:30 Pulse 75 11/22/23 13:30 Resp 20 11/22/23 13:30 BP 122/68 11/22/23 13:30 Pulse Ox 95 11/22/23 13:30 FiO2 Intake & Output 11/21/23 11/22/23 11/22/23 18:59 06:59 18:59 Intake Total 50 Balance 50 Weight 77.6 kg Intake: Intake, IV Titration 50 Amount ceFAZolin 2 gm In Sodium 50 Chloride 0.9% 50 ml @ 100 mls/hr IVPB Q8HR [facility] Rx# :[id number] Other: Voiding Method Toilet Urinal # Voids 3 2 - Labs CBC & Chem 7: 11/22/23 04:17 11/22/23 04:17 Labs: Abnormal Lab Results - Last 24 Hours (Table) 11/22/23 11/22/23 Range/Units 04:17 04:17 RBC 4.18 L (4.40-5.60) X 10*6/uL Hgb 12.2 L (13.0-17.0) g/dL Hct 38.1 L (39.6-50.0) % Plt Count 451 H (140-440) X 10*3/uL Eosinophils # 0 L (0.04-0.35) X 10*3/uL BUN 28.5 H (9.0-27.0) mg/dL BUN/Creatinine Ratio 31.67 H (12.00-20.00) Ratio Microbiology - Last 24 Hours (Table) 11/21/23 17:15 Gram Stain - Preliminary Foot - Left 11/16/23 16:19 Blood Culture - Final Blood 11/18/23 05:49 Blood Culture - Preliminary Blood
[2023-11-23 08:38] VITALS: BMI 20.8
[2023-11-23] MEDS ORDERED: LIDOCAINE 1% INJ 10MG/ML (20 ML MDV) ONE (11:00)
[2023-11-23] MEDS: LIDOCAINE 1% INJ 10MG/ML (20 ML MDV) SQ ONE (11:11)
--- NOTE | 2023-11-23 11:17 | P.OP ---
Date of Procedure: 11/23/23 Description of Procedure: Date of Procedure: Preoperative Diagnosis: Need for long-term IV antibiotic access. Postoperative Diagnosis: Same. Procedure(s) Performed: Ultrasound-guided cannulation right basilic vein. Insertion of peripherally inserted central catheter under fluoroscopic guidance. Anesthesia: local (1% Xylocaine.) Surgeon: Elicia Estimated Blood Loss (ml): 5 IV fluids (ml): 0 Urine output (ml): 0 Pathology: none sent Condition: stable Disposition: no change Indications for Procedure: Patient is a 63-year-old male with need for IV antibiotics. Patient will require long-term IV antibiotics as an outpatient patient is offered a PICC line to allow for intravenous administration of antibiotics. Description of Procedure: Patient was brought to the special procedure suite. The right upper extremity sterilely prepped and draped in usual manner. Ultrasound was utilized to identify the basilic vein which was normally compressible free of visible thrombus. Permenant image was stored. 1% Xylocaine was utilized for local anesthesia tissues overlying the vein. Through this anesthetized area and with the aid of ultrasound a micropuncture needle was utilized to cannulate the vein. Once cannulated, Softip guidewire was advanced into the vein. The needle was withdrawn and a micropuncture sheath and dilator advanced over the guidewire. The guidewire was withdrawn and exchanged for the PICC guidewire to the cavoatrial junction. The catheter was cut to size and advanced into the cavoatrial junction without resistance. The sheath was peeled away. Blood was easily withdrawn through the catheter and the catheter was then flushed with heparinized saline solution and secured to the skin. Patient tolerated procedure well and was returned to their room in satisfactory and stable condition.
--- NOTE | 2023-11-23 11:39 | P.PN ---
Subjective Progress Note Date: 11/23/23 Principal diagnosis: Left foot abscess Patient is seen and examined today as a follow-up. Case management had spoken to patient's primary clinic the [facility] for outpatient follow-up and they had mentioned that they had done an x-ray of the patient's right foot that he had complained in the past of some right foot pain and it was noted that there was a small foreign body measuring 5 mm between the fourth and fifth toes. Patient just got back from PICC line placement. He denies any pain in his right foot, no swelling redness. He states that he told them if he bent his foot in a certain way sometimes there was a little discomfort. He does not recall stepping on any objects. Objective - Vital Signs Vital signs: Vital Signs Temp 97.9 F 11/23/23 07:33 Pulse 64 11/23/23 07:33 Resp 17 11/23/23 07:33 BP 112/68 11/23/23 07:33 Pulse Ox 98 11/23/23 07:33 FiO2 Intake & Output 11/22/23 11/23/23 11/23/23 18:59 06:59 18:59 Intake Total 530 Output Total 600 Balance -70 Weight 77.7 kg 77.7 kg Intake: Intake, IV Titration 50 Amount ceFAZolin 2 gm In Sodium 50 Chloride 0.9% 50 ml @ 100 mls/hr IVPB Q8HR [facility] Rx# :[id number] Oral 480 Output: Urine 600 Other: Voiding Method Toilet Toilet Urinal Urinal # Voids 3 1 - Exam general appearance: The patient is alert, oriented, appears in no acute distress. HET: Head is normocephalic and atraumatic. Pupils are equal and reactive. Neck: Supple. Abdomen: Soft, nondistended. Extremities: Right lower extremity medial aspect with varicose vein and ulcer, no drainage noted. Right foot without any swelling, redness, wounds or ulcers noted. Left foot with dressing clean dry and intact. Neurological: No focal deficits. - Labs CBC & Chem 7: 11/22/23 04:17 11/22/23 04:17 Labs: Microbiology - Last 24 Hours (Table) 11/21/23 17:15 Gram Stain - Preliminary Foot - Left Wound Culture - Preliminary Presumptive Staph aureus Assessment and Plan Assessment: 1. Left foot abscess status post incision and drainage 2. Right lower extremity varicose ulcer 3. Nicotine dependence 4. Cardiomyopathy 5. 5 mm foreign body noted on right foot x-ray on 11/14/2023. No evidence of infection, cellulitis or wound. Plan: 1. Patient is status post incision and drainage with deep tissue cultures collected and sent 2. Continue with recommendations from infectious disease for antibiotics 3. Thera honey to right lower extremity wound 4. Consult to [facility] wound clinic for local wound care recommendations 5. Recommend outpatient follow-up with wound care 6. No further surgical intervention planned from vascular surgery 7. Patient is cleared from vascular surgery. He is to follow-up for right lower extremity varicose ulcer and can follow-up on right foot x-ray findings Thank you for this consultation, we will sign off at this time. The impression and plan of care has been dictated as directed. Dr. Rubi I performed a history and examination of this patient, discussed the same with the dictator. I agree with the dictator's note ,documented as a scribe. Any additional findings or plans will be noted.
--- NOTE | 2023-11-23 11:48 | IR ---
EXAMINATION TYPE: IR cvc insert >=5 years DATE OF EXAM: 11/23/2023 COMPARISON: NONE HISTORY: Fluoroscopy time. Fluoroscopy was provided to the referring clinician.
--- NOTE | 2023-11-23 16:10 | P.PN ---
Subjective Progress Note Date: 11/23/23 63-year-old male with a history of lung cancer on immunotherapy, systolic heart failure with a EF 35%, hypothyroidism, hypertension presenting with lower extremity right cellulitis and bacteremia. In the ED, temperature was 98.3, pulse 54, respiratory rate 20, blood pressure 118/75, saturating at 100% on room air. WBC 8.6, hemoglobin 13.4, platelet 434, ESR pending, creatinine 0.81, lactate 2.7, CRP 23.3. Patient admitted for further evaluation, ID consulted, started on IV vancomycin. Found to have MSSA bacteremia. Now switch to cefazolin. 1 out of 2 blood cultures came back positive again for Staph aureus. Echocardiogram showed severe LV dysfunction, mild RV enlargement, EF 35 to 40%, grade 1 diastolic dysfunction, no vegetations noted. Left foot CT showed ulcer along the ball of the foot below the great toe, phlegmon versus early abscess. Underwent I&D on 11/20. 11/17 BCx negative. Wound Cx presumptive staph aureus. Patient seen and examined at bedside. No acute events overnight. Well controlled pain in the right foot. He has no complaints. Vitals Signs Reviewed. General: nontoxic, no distress, appears at stated age Derm: warm, dry, right foot dressing c/d/i Head: atraumatic, normocephalic, symmetric Eyes: EOMI, no lid lag, anicteric sclera ENT: Nose and ears atraumatic Neck: No thyromegaly, supple Mouth: no lip lesion, mucus membranes moist Cardiovascular: S1S2 reg, no murmur, no edema Lungs: clear to auscultation bilateral, no rhonchi, no rales, no wheeze, no accessory muscle use Ext: no gross muscle atrophy, muscle strength muscle strength 5 out of 5 in all 4 extremities, no contractures Psych: Alert, oriented, appropriate affect MSSA bacteremia: Cefzolin 2g IV TID. ID on board. PICC line ordered. Plans for IV antibiotics at home. Discussed with case management. Right lower extremity cellulitis Left foot abscess Lactic acidosis Chronic: Systolic cardiomyopathy, not in exacerbation Hypertension CODE STATUS: FULL CODE DVT Prophylaxis: Heparin SQ GI Prophylaxis: Designated medical POA if patient is not able to make medical decisions for themselves: I have reviewed the following product support consultant notes: Vascular Sx I have reviewed the results of the following tests: I have ordered the following tests: I have discussed the care of this patient with the following independent historian: I have independently interpreted the following test below: I have discussed the management of this patient with the following physician: Jojo SORIANO Objective - Vital Signs Vital signs: Vital Signs Temp 97.9 F 11/23/23 07:33 Pulse 106 H 11/23/23 14:00 Resp 18 11/23/23 14:00 BP 108/57 11/23/23 14:00 Pulse Ox 93 L 11/23/23 14:00 FiO2 Intake & Output 11/22/23 11/23/23 11/23/23 18:59 06:59 18:59 Intake Total 530 Output Total 600 Balance -70 Weight 77.7 kg 77.7 kg Intake: Intake, IV Titration 50 Amount ceFAZolin 2 gm In Sodium 50 Chloride 0.9% 50 ml @ 100 mls/hr IVPB Q8HR [facility] Rx# :[id number] Oral 480 Output: Urine 600 Other: Voiding Method Toilet Toilet Toilet Urinal Urinal Urinal # Voids 3 1 - Labs CBC & Chem 7: 11/22/23 04:17 11/22/23 04:17 Labs: Microbiology - Last 24 Hours (Table) 11/18/23 05:49 Blood Culture - Final Blood 11/21/23 17:15 Gram Stain - Preliminary Foot - Left Wound Culture - Preliminary Presumptive Staph aureus
--- NOTE | 2023-11-24 08:22 | P.PN ---
Subjective Progress Note Date: 11/21/23 Principal diagnosis: Reason for follow-up is MSSA bacteremia right leg cellulitis Patient is a 63-year male with multiple comorbidity recently evaluated at [facility] ER for right lower extremity cellulitis discharged on oral antibiotics presenting back with positive blood culture has been diagnosed with right lower extremity abscess cellulitis with secondary bacteremia. On today's evaluation that is 11/21/2023,the patient remains to be afebrile, patient is on room air not requiring supplemental oxygen and denies any shortness of breath no chest pain or cough.Patient denies having any nausea or vomiting, no abdominal pain and no diarrhea has been reported, denies any worsening pain to the left foot area currently waiting for surgery. No new labs has been obtained today repeat blood pressure for negative Objective - Vital Signs Vital signs: Vital Signs Temp 97.9 F 11/21/23 13:07 Pulse 65 11/21/23 13:07 Resp 20 11/21/23 13:07 BP 104/63 11/21/23 13:07 Pulse Ox 96 11/21/23 13:07 FiO2 Intake & Output 11/20/23 11/21/23 11/21/23 18:59 06:59 18:59 Weight 78.7 kg Other: Voiding Method Toilet Toilet Urinal Urinal # Voids 1 2 - Exam GENERAL DESCRIPTION: Middle-age male lying in bed in no distress RESPIRATORY SYSTEM: Unlabored breathing , decreased breath sounds at bases HEART: S1 S2 regular rate and rhythm , ABDOMEN: Soft , no tenderness EXTREMITIES: Right lower leg area with no drainage, patient did have a difficult swelling to the left big toe with infected callus and possible abscess - Labs CBC & Chem 7: 11/22/23 04:17 11/22/23 04:17 Labs: Microbiology - Last 24 Hours (Table) 11/18/23 05:49 Blood Culture - Preliminary Blood Assessment and Plan (1) Cellulitis of right leg Current Visit: Yes Status: Acute Code(s): L03.115 - CELLULITIS OF RIGHT LOWER LIMB SNOMED Code(s): 47644223040030972 (2) MSSA bacteremia Current Visit: Yes Status: Acute Code(s): R78.81 - BACTEREMIA; B95.61 - METHICILLIN SUSCEP [facility] Code(s): 194328499 (3) Foot abscess, left Current Visit: Yes Status: Acute Code(s): L02.612 - CUTANEOUS ABSCESS OF LEFT FOOT SNOMED Code(s): 67737775500319639 Plan: 1patient with Staph aureus bacteremia source likely right lower extremity area of cellulitis and there is concern for possible abscess likely from Staph aureus, blood culture has been repeated document clearance of bacteremia 2-patient blood culture has been finalized with MSSA repeat blood culture currently pending 3-patient with a left foot abscess/infected callus, currently waiting for surgical debridement of the left foot infected callus, patient is currently being treated with the cefazolin and monitor clinical course closely Dictation was produced using [employer] dictation software. please excuse any grammatical, word or spelling errors. Time with Patient: Less than 30
--- NOTE | 2023-11-24 08:23 | P.PN ---
Subjective Progress Note Date: 11/22/23 Principal diagnosis: Reason for follow-up is MSSA bacteremia right leg cellulitis Patient is a 63-year male with multiple comorbidity recently evaluated at [facility] ER for right lower extremity cellulitis discharged on oral antibiotics presenting back with positive blood culture has been diagnosed with right lower extremity abscess cellulitis with secondary bacteremia. Patient is status post excision debridement of the left foot wound with drainage of the abscess operative report did not mention any involvement of the bones procedure completed on 11/21/2023. On today's evaluation that is 11/22/2023, the patient continues to be afebrile, the patient is on room air and breathing comfortably, the Pt denies having any chest pain or cough, the patient denies having any abdominal pain no vomiting or any diarrhea has been reported by the nursing staff, patient pain to the left foot is currently controlled. Patient white count is 6.89, creatinine 0.9 Objective - Vital Signs Vital signs: Vital Signs Temp 98.2 F 11/22/23 07:45 Pulse 88 11/22/23 07:45 Resp 20 11/22/23 07:45 BP 121/81 11/22/23 07:45 Pulse Ox 100 11/22/23 07:45 FiO2 Intake & Output 11/21/23 11/22/23 11/22/23 18:59 06:59 18:59 Intake Total 50 Balance 50 Weight 77.6 kg Intake: Intake, IV Titration 50 Amount ceFAZolin 2 gm In Sodium 50 Chloride 0.9% 50 ml @ 100 mls/hr IVPB Q8HR [facility] Rx# :[id number] Other: Voiding Method Toilet Urinal # Voids 3 2 - Exam GENERAL DESCRIPTION: Middle-age male lying in bed in no distress RESPIRATORY SYSTEM: Unlabored breathing , decreased breath sounds at bases HEART: S1 S2 regular rate and rhythm , ABDOMEN: Soft , no tenderness EXTREMITIES: Right lower leg area of swelling redness has resolved, the patient left foot is currently dressed - Labs CBC & Chem 7: 11/22/23 04:17 11/22/23 04:17 Labs: Abnormal Lab Results - Last 24 Hours (Table) 11/22/23 11/22/23 Range/Units 04:17 04:17 RBC 4.18 L (4.40-5.60) X 10*6/uL Hgb 12.2 L (13.0-17.0) g/dL Hct 38.1 L (39.6-50.0) % Plt Count 451 H (140-440) X 10*3/uL Eosinophils # 0 L (0.04-0.35) X 10*3/uL BUN 28.5 H (9.0-27.0) mg/dL BUN/Creatinine Ratio 31.67 H (12.00-20.00) Ratio Microbiology - Last 24 Hours (Table) 11/21/23 17:15 Gram Stain - Preliminary Foot - Left 11/16/23 16:19 Blood Culture - Final Blood 11/18/23 05:49 Blood Culture - Preliminary Blood Assessment and Plan (1) Cellulitis of right leg Current Visit: Yes Status: Acute Code(s): L03.115 - CELLULITIS OF RIGHT LOWER LIMB SNOMED Code(s): 91523623362006433 (2) MSSA bacteremia Current Visit: Yes Status: Acute Code(s): R78.81 - BACTEREMIA; B95.61 - METHICILLIN SUSCEP STAPH INFCT CAUSING DIS CLASSD [facility] SNOMED Code(s): 191448401 (3) Foot abscess, left Current Visit: Yes Status: Acute Code(s): L02.612 - CUTANEOUS ABSCESS OF LEFT FOOT SNOMED Code(s): 88315507973563777 Plan: 1patient with Staph aureus bacteremia source likely right lower extremity area of cellulitis and there is concern for possible abscess likely from Staph aureus, blood culture has been repeated document clearance of bacteremia 2-patient blood culture has been finalized with MSSA repeat blood culture currently pending 3-patient with a left foot abscess/infected callus, patient is status post surgical debridement of the left foot infected callus did not mention any extension down to the bones, 4- patient is currently being treated with the cefazolin will need a PICC line for outpatient IV antibiotic therapy Dictation was produced using [employer] dictation software. please excuse any grammatical, word or spelling errors. Time with Patient: Less than 30
--- NOTE | 2023-11-24 08:24 | P.PN ---
Subjective Progress Note Date: 11/23/23 Principal diagnosis: Reason for follow-up is MSSA bacteremia right leg cellulitis Patient is a 63-year male with multiple comorbidity recently evaluated at [facility] ER for right lower extremity cellulitis discharged on oral antibiotics presenting back with positive blood culture has been diagnosed with right lower extremity abscess cellulitis with secondary bacteremia. Patient is status post excision debridement of the left foot wound with drainage of the abscess operative report did not mention any involvement of the bones procedure completed on 11/21/2023. On today's evaluation that is 11/23/2023, Patient is afebrile patient is currently on room air and denies having any shortness of breath, the patient denies any chest pain or cough, the patient denies any nausea vomiting did not have any abdominal pain and no diarrhea, the patient pain to the left foot has decreased in intensity and denies any new symptoms. No relief has been obtained today blood culture repeat as of 427 and 425 has been negative left foot wound culture growing MSSA Objective - Vital Signs Vital signs: Vital Signs Temp 97.9 F 11/23/23 07:33 Pulse 64 11/23/23 07:33 Resp 17 11/23/23 07:33 BP 112/68 11/23/23 07:33 Pulse Ox 98 11/23/23 07:33 FiO2 Intake & Output 11/22/23 11/23/23 11/23/23 18:59 06:59 18:59 Intake Total 530 Output Total 600 Balance -70 Weight 77.7 kg 77.7 kg Intake: Intake, IV Titration 50 Amount ceFAZolin 2 gm In Sodium 50 Chloride 0.9% 50 ml @ 100 mls/hr IVPB Q8HR [facility] Rx# :[id number] Oral 480 Output: Urine 600 Other: Voiding Method Toilet Toilet Urinal Urinal # Voids 3 1 - Exam GENERAL DESCRIPTION: Middle-age male lying in bed in no distress RESPIRATORY SYSTEM: Unlabored breathing , decreased breath sounds at bases HEART: S1 S2 regular rate and rhythm , ABDOMEN: Soft , no tenderness EXTREMITIES: Right lower leg area of swelling redness has resolved, the patient left foot is currently dressed - Labs CBC & Chem 7: 11/22/23 04:17 11/22/23 04:17 Labs: Microbiology - Last 24 Hours (Table) 11/21/23 17:15 Gram Stain - Preliminary Foot - Left Wound Culture - Preliminary Presumptive Staph aureus Assessment and Plan (1) Cellulitis of right leg Current Visit: Yes Status: Acute Code(s): L03.115 - CELLULITIS OF RIGHT LOWER LIMB SNOMED Code(s): 95518386446375007 (2) MSSA bacteremia Current Visit: Yes Status: Acute Code(s): R78.81 - BACTEREMIA; B95.61 - METHICILLIN SUSCEP STAPH INFCT CAUSING DIS CLASSD [facility] SNOMED Code(s): 077308709 (3) Foot abscess, left Current Visit: Yes Status: Acute Code(s): L02.612 - CUTANEOUS ABSCESS OF LEFT FOOT SNOMED Code(s): 60285161569555535 Plan: 1patient with Staph aureus bacteremia source likely right lower extremity area of cellulitis and there is concern for possible abscess likely from Staph aureus, blood culture has been repeated document clearance of bacteremia 2-patient blood culture has been finalized with MSSA repeat blood culture currently pending 3-patient with a left foot abscess/infected callus, patient is status post surgical debridement of the left foot infected callus did not mention any extension down to the bones, 4- patient did have a PICC line placement for outpatient IV antibiotic therapy on cefazolin prescription has been provided to the director of casework services, once antibiotic arranged patient will be able to go home from ID standpoint and close outpatient follow-up Dictation was produced using [employer] dictation software. please excuse any gr ammatical, word or spelling errors. Time with Patient: Less than 30
--- NOTE | 2023-11-24 11:41 | P.DS ---
Providers Date of admission: 11/16/23 13:44 Expected date of discharge: 11/24/23 Attending physician: Yuri Silva MD Consults: 11/16/23 13:32 Consult Physician Routine Consulting Provider: Mindy Parada Consult Reason/Comments: bacteremia Do you want consulting provider notified?: Yes 11/20/23 10:16 Consult Physician Urgent Consulting Provider: Tano Steinberg Consult Reason/Comments: Cardiac clearance for surgical debridement and I &D Do you want consulting provider notified?: Yes Primary care physician: [facility] Course: 63-year-old male with a history of lung cancer on immunotherapy, systolic heart failure with a EF 35%, hypothyroidism, hypertension presenting with lower extremity right cellulitis and bacteremia. In the ED, temperature was 98.3, pulse 54, respiratory rate 20, blood pressure 118/75, saturating at 100% on room air. WBC 8.6, hemoglobin 13.4, platelet 434, ESR pending, creatinine 0.81, lactate 2.7, CRP 23.3. Patient admitted for further evaluation, ID consulted, started on IV vancomycin. Found to have MSSA bacteremia. Now switch to cefazolin. 1 out of 2 blood cultures came back positive again for Staph aureus. Echocardiogram showed severe LV dysfunction, mild RV enlargement, EF 35 to 40%, grade 1 diastolic dysfunction, no vegetations noted. Left foot CT showed ulcer along the ball of the foot below the great toe, phlegmon versus early abscess. Underwent I&D on 11/20. 11/17 BCx negative. Wound Cx staph aureus. 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 Patient was seen and examined. Feeling well. Plans for discharge home today on IV antibiotics after afternoon dose. Follow up with PCP within 1-2 days of discharge. Follow up with Vascular surgery within 2 weeks of discharge. Follow up with Wound care within 1 week of discharge. Follow up with Cardiology within 1 week of discharge. Vitals Signs Reviewed. General: nontoxic, no distress, appears at stated age Derm: warm, dry, right foot dressing c/d/i Head: atraumatic, normocephalic, symmetric Eyes: EOMI, no lid lag, anicteric sclera ENT: Nose and ears atraumatic Neck: No thyromegaly, supple Mouth: no lip lesion, mucus membranes moist Cardiovascular: S1S2 reg, no murmur, no edema Lungs: clear to auscultation bilateral, no rhonchi, no rales, no wheeze, no accessory muscle use Ext: no gross muscle atrophy, muscle strength muscle strength 5 out of 5 in all 4 extremities, no contractures Psych: Alert, oriented, appropriate affect Discharge Diagnosis: MSSA bacteremia Right lower extremity cellulitis Left foot abscess Lactic acidosis Chronic: Systolic cardiomyopathy, not in exacerbation Hypertension This complex discharge took 35 minutes to complete. Patient Condition at Discharge: Stable Plan - Discharge Summary Discharge Rx Participant: Yes New Discharge Prescriptions: New Pantoprazole [Protonix] 40 mg PO DAILY #30 tab Furosemide [Lasix] 20 mg PO DAILY #30 tab Continue Levothyroxine Sodium [Synthroid] 25 mcg PO DAILY lisinopriL [Zestril] 20 mg PO DAILY Ergocalciferol (Vitamin D2) [Drisdol (50,000 Iu)] 1,250 mcg PO TU carvediloL [Coreg] 6.25 mg PO BID Discontinued Furosemide [Lasix] 10 mg PO DAILY Discharge Medication List lisinopriL [Zestril] 20 mg PO DAILY 12/20/22 [History] Ergocalciferol (Vitamin D2) [Drisdol (50,000 Iu)] 1,250 mcg PO TU 11/14/23 [History] Levothyroxine Sodium [Synthroid] 25 mcg PO DAILY 11/14/23 [History] carvediloL [Coreg] 6.25 mg PO BID 11/14/23 [History] Furosemide [Lasix] 20 mg PO DAILY #30 tab 11/24/23 [Rx] Pantoprazole [Protonix] 40 mg PO DAILY #30 tab 11/24/23 [Rx] Follow up Appointment(s)/Referral(s): Aguilar Fernández DO [STAFF PHYSICIAN] - 2 Weeks [facility] [NON-STAFF] - 1 Week [facility] [NON-STAFF] - As Needed Mindy Parada MD [STAFF PHYSICIAN] - 1 Week [facility]Clinic [Primary Care Provider] - 1-2 days Activity/Diet/Wound Care/Special Instructions: Leonora Muller will be delivering to home today for start of care tomorrow, please call them if further questions: #[phone] Discharge Disposition: HOME SELF-CARE
[2023-11-24 15:27] VITALS: BP 110/68; PULSE 74; RESP 18; TEMP 97.7
--- NOTE | 2023-11-24 21:20 | P.PN ---
Subjective Progress Note Date: 11/24/23 Principal diagnosis: Reason for follow-up is MSSA bacteremia right leg cellulitis Patient is a 63-year male with multiple comorbidity recently evaluated at [facility] ER for right lower extremity cellulitis discharged on oral antibiotics presenting back with positive blood culture has been diagnosed with right lower extremity abscess cellulitis with secondary bacteremia. Patient is status post excision debridement of the left foot wound with drainage of the abscess operative report did not mention any involvement of the bones procedure completed on 11/21/2023. On today's evaluation that is 11/24/2023, patient has been afebrile, patient is breathing comfortably and is currently on room air, patient denies having any significant cough no chest pain shortness of breath, patient denies nausea vomiting or diarrhea and no abdominal pain, denies pain to the left lower extremity. No new labs has been obtained today blood culture repeat has been negative Objective - Vital Signs Vital signs: Vital Signs Temp 97.8 F 11/24/23 07:43 Pulse 70 11/24/23 07:43 Resp 17 11/24/23 07:43 BP 116/71 11/24/23 07:43 Pulse Ox 99 11/24/23 07:43 FiO2 Intake & Output 11/23/23 11/24/23 11/24/23 18:59 06:59 18:59 Intake Total 100 480 Balance 100 480 Weight 77.7 kg 77.7 kg Intake: Intake, IV Titration 100 Amount ceFAZolin 2 gm In Sodium 100 Chloride 0.9% 50 ml @ 100 mls/hr IVPB Q8HR [facility] Rx# :[id number] Oral 480 Other: Voiding Method Toilet Urinal # Voids 2 - Exam GENERAL DESCRIPTION: Middle-age male lying in bed in no distress RESPIRATORY SYSTEM: Unlabored breathing , decreased breath sounds at bases HEART: S1 S2 regular rate and rhythm , ABDOMEN: Soft , no tenderness EXTREMITIES: Right lower leg area of swelling redness has resolved, the patient left foot is currently dressed - Labs CBC & Chem 7: 11/22/23 04:17 11/22/23 04:17 Labs: Microbiology - Last 24 Hours (Table) 11/21/23 17:15 Gram Stain - Final Foot - Left Wound Culture - Final Staphylococcus aureus 11/18/23 05:49 Blood Culture - Final Blood Assessment and Plan (1) Cellulitis of right leg Status: Acute Code(s): L03.115 - CELLULITIS OF RIGHT LOWER LIMB SNOMED Code(s): 74916967787017829 (2) MSSA bacteremia Status: Acute Code(s): R78.81 - BACTEREMIA; B95.61 - METHICILLIN SUSCEP STAPH INFCT CAUSING DIS CLASSD [facility] SNOMED Code(s): 977830424 (3) Foot abscess, left Status: Acute Code(s): L02.612 - CUTANEOUS ABSCESS OF LEFT FOOT SNOMED Code(s): 95506437659311260 Plan: 1patient with Staph aureus bacteremia source likely right lower extremity area of cellulitis and there is concern for possible abscess likely from Staph aureus, blood culture has been repeated document clearance of bacteremia 2-patient blood culture has been finalized with MSSA repeat blood culture currently pending 3-patient with a left foot abscess/infected callus, patient is status post surgical debridement of the left foot infected callus did not mention any extension down to the bones, 4- patient did have a PICC line placement for outpatient IV antibiotic therapy 5-plan is for cefazolin 2 g great hour x 2 weeks with weekly monitoring of his inflammatory markers and close outpatient follow-up Dictation was produced using [employer] dictation software. please excuse any grammatical, word or spelling errors. Time with Patient: Less than 30
== END 2023-11-24 16:19 | disposition home or self-care (01) | DRG 571 ==
LOC: EC 11:24 → 3SCARD 13:44 → 4SSUR 11-17 18:56
PROVIDERS: ADMIT Student in an Organized Health Care Education/Training Program; ATTEND Student in an Organized Health Care Education/Training Program
PROC: 0JBR0ZZ Excision of Left Foot Subcutaneous Tissue and Fascia, Open Approach (ICD-10-PCS; principal; 2023-11-21)
PROC: 02HV33Z Insertion of Infusion Device into Superior Vena Cava, Percutaneous Approach (ICD-10-PCS; 2023-11-23)
PROC: B5181ZA Fluoroscopy of Superior Vena Cava using Low Osmolar Contrast, Guidance (ICD-10-PCS; 2023-11-23)
PROC: B548ZZA Ultrasonography of Superior Vena Cava, Guidance (ICD-10-PCS; 2023-11-23)
PROC: 05HB33Z Insertion of Infusion Device into Right Basilic Vein, Percutaneous Approach (ICD-10-PCS; 2023-11-23)
DX: L03.116 Cellulitis of left lower limb (principal); E87.20 Acidosis, unspecified; I42.8 Other cardiomyopathies; L02.612 Cutaneous abscess of left foot; R78.81 Bacteremia; L97.912 Non-pressure chronic ulcer of unspecified part of right lower leg with fat layer exposed; I45.2 Bifascicular block; I50.22 Chronic systolic (congestive) heart failure; L02.416 Cutaneous abscess of left lower limb; L03.115 Cellulitis of right lower limb; B95.61 Methicillin susceptible Staphylococcus aureus infection as the cause of diseases classified elsewhere; I11.0 Hypertensive heart disease with heart failure; F17.210 Nicotine dependence, cigarettes, uncomplicated; L97.522 Non-pressure chronic ulcer of other part of left foot with fat layer exposed; L98.492 Non-pressure chronic ulcer of skin of other sites with fat layer exposed; I08.1 Rheumatic disorders of both mitral and tricuspid valves; Z79.890 Hormone replacement therapy; E03.9 Hypothyroidism, unspecified; E78.5 Hyperlipidemia, unspecified; H66.90 Otitis media, unspecified, unspecified ear; Z79.899 Other long term (current) drug therapy; Z86.79 Personal history of other diseases of the circulatory system; Z85.118 Personal history of other malignant neoplasm of bronchus and lung
CPT/HCPCS: 36415; 36573; 80048; 80053; 82565; 83605; 85025; 85652; 86140; 87040; 87070; 87075; 87077; 87186; 87205; 93005; 93306; 93923; 94760; 96365; 96366; 96367; 96372; 96375; 99285

== ENCOUNTER → 2023-12-07 | Outpatient (CLI) | payer OTHER ==
--- NOTE | 2023-12-07 18:02 | US ---
LOWER EXTREMITY VENOUS INSUFFICIENCY CLINICAL INDICATION: Male, 63 years old with history of I87.311 CHRONIC VENOUS HYPERTENSION WITH ULCE R OF; Right foot edema. Wound right lower leg SIDE PERFORMED: bilateral 1) Color flow is present and patency is documented in the following vessels. No DVT or SVT is noted . Common Femoral Vein Deep Femoral Vein Femoral Vein Popliteal Vein Proximal Calf Veins Greater Saph Vein Upper Small Saph Vein 2) There is venous reflux noted at the following venous levels: right greater saph. vein, right CFV , right deep femoral vein, right femoral vein mid, right popliteal vein distal. The deep venous systems of both lower extremities from the common femoral remains to the proximal tracey f veins are patent and compressible with augmentable flow and with normal waveforms. IMPRESSION: 1. No evidence of bilateral lower extremity DVT from the common femoral veins to the proximal calf ve ins. 2. Superficial and deep venous insufficiency of the right lower extremity.
== END | disposition home or self-care (01) ==
LOC: RADUSWWP 10:54
PROVIDERS: ATTEND Family Medicine
DX: I87.2 Venous insufficiency (chronic) (peripheral) (principal); I87.311 Chronic venous hypertension (idiopathic) with ulcer of right lower extremity
CPT/HCPCS: 93970

== ENCOUNTER → 2024-01-19 | Outpatient (CLI) | payer OTHER ==
--- NOTE | 2024-01-21 19:07 | PE ---
EXAMINATION TYPE: PET CT fusion skull to thigh DATE OF EXAM: 01/19/2024 CLINICAL INDICATION:Male, 63 years old with history of C34.32 LUNG CANCER; TECHNIQUE: Following the intravenous administration of 12.52 mCi of F-18 FDG, whole body images are performed from the skull base to the midthigh. Images are reviewed on the computer in the caal l, axial, and sagittal planes. Reconstructed rotating images are created on independent workstation and reviewed on the computer. A non-contrast CT is performed in conjunction with the PET scan. Gluc ose level 101 mg/dL CT DLP: 353 mGycm, Automated exposure control for dose reduction was used. COMPARISON: CT None, PET/CT 08/31/2023, MRI: None FINDINGS: Mediastinal SUV mean is 1.9. Hepatic parenchyma SUV mean is 2.3. SKULL BASE AND NECK: * Improved paranasal sinus disease with decrease in FDG avid disease compared to prior. 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 CHEST, MEDIASTINUM, AND HILAR REGION: * Left upper lung mass measuring 2.1 x 2.0 cm, previously 2.2 x 2.0 cm, 3.5 x 3.0 cm , 3.3 x 2.5 cm max SUV 3.4, previously 3.4, 7.4 * AP window lymph node SUV 2.7, previously 3.1, 2.4 measuring similarly at 10 mm in short axis. * Other lymph nodes with mild FDG activity identified including right low paratracheal max SUV 2.7, previously 3.4, subcarinal max SUV 3.2, previously 3.5. * Right axillary lymph nodes which have mild uptake max SUV 2.8, previously 3.0. posttreatment changes to the left chest wall with mild uptake along the soft tissues just superficial to the ribs max SUV 3.7 similar prior. No increasing focal uptake identified. ABDOMEN AND PELVIS: No suspicious radiotracer activity. OSSEOUS STRUCTURES: No suspicious radiotracer activity. OTHER CT: Atherosclerosis of the arterial vasculature. Right. Inguinal hernia containing loops of sma ll bowel and colon. No evidence of obstruction. Prostate gland is enlarged measuring up to 5.1 cm in transverse dimension. IMPRESSION: 1. Continued decrease in size and FDG activity of left upper lung mass . Stable and/or decreasing me tabolic activity of the lymph nodes some of which may have been reactive in prior. 2. Improved paranasal sinus disease. 3. Focal uptake within the right parotid gland max SUV 3.9 previously 3.2 likely representing Warthi n gland tumor.
== END | disposition home or self-care (01) ==
LOC: RADPETMAIN 11:23
PROVIDERS: ATTEND Internal Medicine Hematology & Oncology
DX: C34.32 Malignant neoplasm of lower lobe, left bronchus or lung (principal); R91.8 Other nonspecific abnormal finding of lung field
CPT/HCPCS: 78815; A9552

== ENCOUNTER 2024-04-24 19:32 | Inpatient (IN) | payer OTHER ==
--- NOTE | 2024-04-24 19:42 | ED ---
Chest Pain HPI - General Chief Complaint: Chest Pain Stated Complaint: chest pain Time Seen by Provider: 04/24/24 19:35 Source: EMS, RN notes reviewed, old records reviewed Mode of arrival: EMS - History of Present Illness Initial Comments: This is a 64-year-old male to the ER for evaluation he is presenting today for evaluation of chest pain today. Patient has significant chest pain here in the emergency department with history of known cancer COPD and smoking. Patient has been scheduled in the outpatient past for cardiac catheterization but is states he has been sick every time it has been scheduled to happen. Patient is having persistent chest pain here in the ER a little shaky a little weak and does admit to some mild anxiety MD Complaint: chest pain -: days(s) Onset: during rest, during exertion Pain Location: substernal, left chest Pain Radiation: LUE Severity: moderate Severity scale (1-10): 4 Quality: tightness, heaviness Consistency: constant Improves With: nothing Worsens With: nothing Anginal Symptoms: sense of impending doom Other Symptoms: palpitations Treatments Prior to Arrival: none - Related Data Home Medications Medication Instructions Recorded Confirmed lisinopriL [Zestril] 20 mg PO DAILY 12/20/22 04/25/24 Levothyroxine Sodium [Synthroid] 25 mcg PO AC-BRKFST 11/14/23 04/25/24 Aspirin EC [Ecotrin Low Dose] 81 mg PO DAILY 04/25/24 04/25/24 Atorvastatin [Lipitor] 40 mg PO HS 04/25/24 04/25/24 Empagliflozin [Jardiance] 10 mg PO DAILY 04/25/24 04/25/24 Previous Rx's Medication Instructions Recorded Furosemide [Lasix] 20 mg PO DAILY #30 tab 11/24/23 Dapagliflozin Propanediol [Farxiga] 10 mg PO DAILY #30 tab 04/26/24 Metoprolol Tartrate [Lopressor] 12.5 mg PO BID #60 tab 04/26/24 Spironolactone [Aldactone] 12.5 mg PO DAILY #0 04/26/24 Ticagrelor [Brilinta] 90 mg PO BID #60 tab 04/26/24 Allergies Allergy/AdvReac Type Severity Reaction Status Date / Time No Known Allergies Allergy Verified 04/25/24 08:40 Review of Systems ROS Statement: Those systems with pertinent positive or pertinent negative responses have been documented in the HPI. ROS Other: All systems not noted in ROS Statement are negative. EKG Findings - EKG Comments: EKG Findings:: EKG is sinus bradycardia 47 CA 226 QRS 181 QTc 448 - EKG Results: EKG: interpreted by ERMD - Dysrhythmias: Sinus rhythms and dysrhythmias: sinus rhythm (Repeat EKG is sinus bradycardia 56 CA 224 QRS 72 QTc 445) Past Medical History Past Medical History: GERD/Reflux, Hyperlipidemia, Hypertension, Osteoarthritis (OA) Additional Past Medical History / Comment(s): INPT 10-20-22 FOR VTACH AND MASS ON LT LUNG History of Any Multi-Drug Resistant Organisms: None Reported Past Surgical History: Hernia Repair, Tonsillectomy Additional Past Surgical History / Comment(s): COLONOSCOPY , rt cataract 11/03/21,bronchoscopy Past Anesthesia/Blood Transfusion Reactions: No Reported Reaction Additional Past Anesthesia/Blood Transfusion Reaction / Comment(s): no hx blood transfusion Past Psychological History: No Psychological Hx Reported Smoking Status: Current every day smoker Past Alcohol Use History: None Reported Past Drug Use History: None Reported - Past Family History Mother Family Medical History: No Reported History Father Family Medical History: Renal Disease General Exam General appearance: alert, in no apparent distress, anxious Head exam: Present: atraumatic, normocephalic, normal inspection Eye exam: Present: normal appearance, PERRL, EOMI. Absent: scleral icterus, conjunctival injection, periorbital swelling ENT exam: Present: normal exam, mucous membranes moist Neck exam: Present: normal inspection. Absent: tenderness, meningismus, lymphadenopathy Respiratory exam: Present: normal lung sounds bilaterally. Absent: respiratory distress, wheezes, rales, rhonchi, stridor Cardiovascular Exam: Present: regular rate, normal rhythm, normal heart sounds. Absent: systolic murmur, diastolic murmur, rubs, gallop, clicks GI/Abdominal exam: Present: soft, normal bowel sounds. Absent: distended, tenderness, guarding, rebound, rigid Extremities exam: Present: normal inspection, full ROM, normal capillary refill. Absent: tenderness, pedal edema, joint swelling, calf tenderness Back exam: Present: normal inspection Neurological exam: Present: alert, oriented X3, CN II-XII intact Psychiatric exam: Present: normal affect, normal mood Skin exam: Present: warm, dry, intact, normal color. Absent: rash Course Vital Signs 04/24/24 04/24/24 04/24/24 19:34 20:37 21:30 Temperature 97.7 F Pulse Rate 52 L 62 62 Respiratory 16 16 16 Rate Blood Pressure 130/72 147/55 117/82 O2 Sat by Pulse 99 96 96 Oximetry 04/24/24 04/25/24 04/25/24 23:08 00:10 01:32 Temperature Pulse Rate 57 L 65 53 L Respiratory 18 14 14 Rate Blood Pressure 118/56 128/71 119/51 O2 Sat by Pulse 96 95 97 Oximetry 04/25/24 04/25/24 04/25/24 02:27 03:09 05:00 Temperature Pulse Rate 57 L 55 L 66 Respiratory 17 18 16 Rate Blood Pressure 106/60 114/64 121/74 O2 Sat by Pulse 98 95 98 Oximetry 04/25/24 04/25/24 04/25/24 07:42 08:31 09:12 Temperature 98.2 F Pulse Rate 61 68 57 L Respiratory 18 20 18 Rate Blood Pressure 134/81 131/84 120/59 O2 Sat by Pulse 99 98 99 Oximetry 04/25/24 13:41 Temperature Pulse Rate 54 L Respiratory 16 Rate Blood Pressure 105/64 O2 Sat by Pulse 97 Oximetry - Reevaluation(s) Reevaluation #1: 04/24/24 19:42 Medical records reviewed Reevaluation #2: 04/24/24 22:22 Patient still with chest pain here in the ER Reevaluation #3: 04/24/24 22:22 Patient informed of results and questions answered Reevaluation #4: Was pt. sent in by a medical professional or institution (, PA, DISCHARGING MACHINE OPERATOR, urgent care, hospital, or longterm...) When possible be specific @ -no Did you speak to anyone other than the patient for history (EMS, parent, family, police, friend...)? What history was obtained from this source @ -no Did you review nursing and triage notes (agree or disagree)? Why? @ -agree Are old charts reviewed (outside hosp., previous admission, EMS record, old EKG, old radiological studies, urgent care reports/EKG's, longterm records)? Report findings @ -yes Differential Diagnosis (chest pain, altered mental status, abdominal pain women, abdominal pain men, vaginal bleeding, weakness, fever, dyspnea, syncope, headache, dizziness, GI bleed, back pain, seizure, CVA, palpatations, mental health, musculoskeletal)? @ -prior EKG interpreted by me (3pts min.). @ -yes X-rays interpreted by me (1pt min.). @ -yes negative for acute disease CT interpreted by me (1pt min.). @ -no U/S interpreted by me (1pt. min.). @ -no What testing was considered but not performed or refused? (CT, X-rays, U/S, labs)? Why? @ -none What meds were considered but not given or refused? Why? @ -none Did you discuss the management of the patient with other professionals (professionals i.e. , PA, DISCHARGING MACHINE OPERATOR, lab, RT, psych nurse, social science professor, veneer gluer, teacher, cash management officer, case manager specialist)? Give summary @ -no Was smoking cessation discussed for >3mins.? @ -no Was critical care preformed (if so, how long)? @ -yes31 Were there social determinants of health that impacted care today? How? (Homelessness, low income, unemployed, alcoholism, drug addiction, transportation, low edu. Level, literacy, decrease access to med. care, longterm, rehab)? @ -none Was there de-escalation of care discussed even if they declined (Discuss DNR or withdrawal of care, Hospice)? DNR status @ -no What co-morbidities impacted this encounter? (DM, HTN, Smoking, COPD, CAD, Cancer, CVA, ARF, Chemo, Hep., AIDS, mental health diagnosis, sleep apnea, morbid obesity)? @ -none Was patient admitted / discharged? Hospital course, mention meds given and route, prescriptions, significant lab abnormalities, going to OR and other pertinent info. @ - 63 male to the ER for chest pain today. Patient will be admitted for chest pain observation, CTA chest for PE, patient has significant cardiac changes with prior plan for cardiac catheterization which she has not been able to have. Patient has persistent chest pain here in the ER Admitted Undiagnosed new problem with uncertain prognosis? @ -no Drug Therapy requiring intensive monitoring for toxicity (Heparin, Nitro, Insulin, Cardizem)? @ -no Were any procedures done? @ -no Diagnosis/symptom? @ -Chest pain Acute, or Chronic, or Acute on Chronic? @ -Acute Uncomplicated (without systemic symptoms) or Complicated (systemic symptoms)? @ -Complicated Side effects of treatment? @ -no Exacerbation, Progression, or Severe Exacerbation? @ -exacerbation Poses a threat to life or bodily function? How? (Chest pain, [place], [place], pneumonia, PE, COPD, DKA, ARF, appy, cholecystitis, CVA, Diverticulitis, Homicidal, Suicidal, threat to staff... and all critical care pts) @ -yes chest pain Reevaluation #5: Differential Chest Pain: Stable Angina, Unstable Angina, STEMI, NSTEMI Aortic Dissection, Pneumothorax, Musculoskeletal, Esophageal Spasm GERD, Cholecystitis, Pancreatitis, Zoster, this is not meant to be an all-inclusive list. - Consultations Consultation #1: spoke jaciel house re admission who agree Chest Pain MDM - MDM 63 male to the ER for chest pain today. Patient will be admitted for chest pain observation, CTA chest for PE, patient has significant cardiac changes with prior plan for cardiac catheterization which she has not been able to have. Patient has persistent chest pain here in the ER Critical Care Time Critical Care Time: Yes Total Critical Care Time: 31 Disposition Clinical Impression: Atypical chest pain, Chest pain, Lung cancer, CAD (coronary artery disease), ACS (acute coronary syndrome) Disposition: ADMITTED IP TO THIS HOSP Condition: Stable Is patient prescribed a controlled substance at d/c from ED?: No Time of Disposition: 22:20
[2024-04-24 20:19] LABS: Basophils % (A) 0 %; Eosinophils % (A) 0 %; HCT 44.9 % (39.0-53.0); HGB 13.8 gm/dL (13.0-17.5); Lymphocytes # (A) 0.6 k/uL (1.0-4.8); Lymphocytes % (A) 8 %; MCH 29.2 pg (25.0-35.0); MCHC 30.7 g/dL (31.0-37.0); MCV 95.1 fL (80.0-100.0); Mean Platelet Volume 7.2; Monocytes # (A) 0.6 k/uL (0-1.0); Monocytes % (A) 7 %; Neutrophils # (A) 6.7 k/uL (1.3-7.7); Neutrophils % (A) 82 %; Platelet Count 237 k/uL (150-450); RBC 4.72 m/uL (4.30-5.90); RDW 14.8 % (11.5-15.5); WBC 8.2 k/uL (3.8-10.6)
[2024-04-24 20:40] LABS: ALT 15 U/L (4-49); AST 24 U/L (17-59); African American GFR (CKD) >90 (>60 ml/min/1.73 sqM); Albumin 4.5 g/dL (3.5-5.0); Alkaline Phosphatase 98 U/L (38-126); Anion Gap 9 mmol/L; Blood Urea Nitrogen 19 mg/dL (9-20); Calcium 9.6 mg/dL (8.4-10.2); Carbon Dioxide 26 mmol/L (22-30); Chloride 102 mmol/L (98-107); Glucose 123 mg/dL (74-99); Lipase 121 U/L (23-300); Magnesium 2.3 mg/dL (1.6-2.3); Non-African American GFR(CKD) 80 (>60 ml/min/1.73 sqM); Potassium 4.4 mmol/L (3.5-5.1); Sodium 137 mmol/L (137-145); Total Bilirubin 0.9 mg/dL (0.2-1.3); Total Protein 7.7 g/dL (6.3-8.2)
[2024-04-24] MEDS: MORPHINE SULFATE 4 MG/ML SYRINGE IV STA (20:44)
[2024-04-24 20:45] LABS: INR 0.9 (<1.2); Partial Thromboplastin Time 25.8 sec (22.0-30.0); Prothrombin Time 10.1 sec (10.0-12.5)
[2024-04-24] MEDS: LORazepam 2 MG/ML INJ IV STA (20:46)
[2024-04-24 20:48] LABS: NT-Pro-B-Type Natriuretic Pept 233 pg/mL
[2024-04-24] MEDS: ONDANSETRON 4 MG/2 ML VIAL IVP STA (20:48)
[2024-04-24] MEDS: SODIUM CHLORIDE 0.9% 1,000 ML IV STA (20:48)
--- NOTE | 2024-04-24 21:31 | XR ---
EXAMINATION TYPE: XR chest 2V DATE OF EXAM: 04/24/2024 9:07 PM CLINICAL INDICATION: Male, 63 years old with history of Chest Pain; H COMPARISON: Chest radiographs from 11/12/2023 TECHNIQUE: XR chest 2V Frontal view of the chest. FINDINGS: Lungs/Pleura: Prominent interstitial lung markings are seen scattered throughout the lungs. No eviden ce of focal consolidation, pneumothorax or pleural effusion. Pulmonary vascularity: Unremarkable. Heart/mediastinum: Cardiomediastinal silhouette is unremarkable. Musculoskeletal: No acute osseous pathology. IMPRESSION: Stable exam with scattered areas of scarring involving the lung apices. No acute cardiopulmonary dise ase/process. [facility], , 04/24/2024 9:28 PM
[2024-04-24] MEDS ORDERED: MORPHINE SULFATE 4 MG/ML SYRINGE IV PRN (22:20)
[2024-04-24] MEDS ORDERED: NITROGLYCERIN SL TABS 0.4 MG TAB SUBLINGUAL PRN (22:20)
[2024-04-24] MEDS: ASPIRIN 81 MG PO STA (23:02)
[2024-04-24] MEDS: HEPARIN SODIUM 1,000 UN/ML (10ML VL) IV ONE (23:04)
[2024-04-24] MEDS: HEPARIN SOD,PORK IN 0.45% NACL 25,000 UNIT in 0.45% NACL 1 250ML.BAG IV SCH (23:06)
--- NOTE | 2024-04-25 00:04 | P.HPIM ---
History of Present Illness H&P Date: 04/24/24 Chief Complaint: Chest pain Patient is a 63-year-old male who has COPD and CAD presented to the ED with chest pain. He mentions the chest pain earlier started today while he was sitting on his porch smoking a cigarette. The pain is in the mid upper chest, does not radiate anywhere. He states the pain was dull, intermittent and a 3 out of 10 in severity. The pain felt more like he wanted to throw up but could not. He mentions the pain would worsen if he coughs, or would try to drink something and the pain would get better if he would lie down. He also complains of some shortness of breath and chronic coughing with white phlegm production. He also had chills. typically patient does climb stairs and does yard work with no limitations , denies any associated SOB or CP. 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 Denies fever, palpitations, abdominal pain, vomiting, diarrhea, blood in urine or stool, orthopnea, joint pain, muscle aches, lightheadedness. Labs show WBC 8.2, hemoglobin 13.8, platelet 237, sodium 137, potassium 4.4, magnesium 2.3, lipase 121 WNL Coag: PT 10.1, INR 0.9, APTT 25.8 WNL ED documentation reviewed. Review of systems: Pertinent positives and negatives as discussed in HPI, a complete review of systems was performed and all other systems are negative. PMH: CAD, COPD, cancer, GERD, hyperlipidemia PSH: Hernia FMH: CAD, diabetes melitis Allergies: None Social history: Tobacco: Current smoker, 50 pack years Alcohol: Denies use Recreational drugs: Denies use Physical examination: Vitals: T97.7, P 52 bpm, RR 16, BP 130/72, O2 sat 96% on room air General: non toxic, no distress, appears at stated age, normal weight Derm: no unusual rashes/lesions, warm Head: atraumatic, normocephalic, symmetric Eyes: EOM slow, anicteric sclera ENT: Nose and ears atraumatic Mouth: no lip lesion, mucus membranes moist Cardiovascular: S1S2 reg, no murmur, no edema Lungs: Diminished lung sounds bilaterally, no accessory muscle use Abdominal: soft, nontender to palpation, no guarding Ext: muscle strength 5 out of 5 in all 4 extremities grossly, no gross muscle atrophy, no contractures, Neuro: CN II-XI grossly intact Psych: Alert, oriented, appropriate affect Assessment/Plan: Patient is a 63-year-old male with CAD and COPD presented to the ED for chest pain. Cases of the ED provider and admission accepted for evaluation of the chest pain. #. Chest pain, r/o ACS Does not complain of pain currently Troponin 0.033, D-dimer 0.90, proBNP 233 Chest x-ray shows no acute cardiopulmonary disease or process EKG: Sinus bradycardia, T wave inversion in V3-V6, rate of 54 bpm, QTc 457 ms Continue aspirin 75 mg p.o. daily, nitroglycerin 0.4 mg sublingual Q5M as needed Lipid panel ordered Continue to trend troponin Echo and CTA chest ordered. Cardiology and cardiac rehab consulted #. History of CAD #. Hypertension Continue metoprolol 25 mg p.o. twice daily, lisinopril 20 mg p.o. daily Cardiology consulted #. History of GERD Continue Protonix 40 mg p.o. daily #. History of hypothyroidism Continue levothyroxine 100 g p.o. daily TSH and T4 ordered #. Hyperlipidemia Continue atorvastatin 80 mg p.o. daily F: None E: Replete as required N: Heart healthy diet A: Bedrest, advance activity as tolerated on day 2 clinical pathway DVT prophylaxis: patient on heparin drip started in the ED for ACS protocol The patient is admitted with an anticipated less than 2 midnight stay for evaluation of chest pain CODE STATUS: Full code Discussed with: Patient Anticipated discharge place: Home Past Medical History Past Medical History: GERD/Reflux, Hyperlipidemia, Hypertension, Osteoarthritis (OA) Additional Past Medical History / Comment(s): INPT 10-20-22 FOR VTACH AND MASS ON LT LUNG History of Any Multi-Drug Resistant Organisms: None Reported Past Surgical History: Hernia Repair, Tonsillectomy Additional Past Surgical History / Comment(s): COLONOSCOPY , rt cataract 11/03/21,bronchoscopy Past Anesthesia/Blood Transfusion Reactions: No Reported Reaction Additional Past Anesthesia/Blood Transfusion Reaction / Comment(s): no hx blood transfusion Past Psychological History: No Psychological Hx Reported Smoking Status: Current every day smoker Past Alcohol Use History: None Reported Past Drug Use History: None Reported - Past Family History Mother Family Medical History: No Reported History Father Family Medical History: Renal Disease Medications and Allergies Home Medications Medication Instructions Recorded Confirmed Type lisinopriL [Zestril] 20 mg PO DAILY 12/20/22 11/16/23 History Ergocalciferol (Vitamin D2) 1,250 mcg PO TU 11/14/23 11/16/23 History [Drisdol (50,000 Iu)] Levothyroxine Sodium [Synthroid] 25 mcg PO DAILY 11/14/23 11/16/23 History carvediloL [Coreg] 6.25 mg PO BID 11/14/23 11/16/23 History Furosemide [Lasix] 20 mg PO DAILY #30 tab 11/24/23 Rx Pantoprazole [Protonix] 40 mg PO DAILY #30 tab 11/24/23 Rx Allergies Allergy/AdvReac Type Severity Reaction Status Date / Time No Known Allergies Allergy Verified 04/24/24 19:37 Physical Exam Vitals: Vital Signs Temp Pulse Resp BP Pulse Ox 04/24/24 23:08 57 L 18 118/56 96 04/24/24 21:30 62 16 117/82 96 04/24/24 20:37 62 16 147/55 96 04/24/24 19:34 97.7 F 52 L 16 130/72 99 Intake and Output 04/24/24 04/24/24 04/25/24 14:59 22:59 06:59 Other: Weight 85.729 kg Results CBC & Chem 7: 04/24/24 20:08 04/24/24 20:08 Labs: Abnormal Lab Results - Last 24 Hours (Table) 04/24/24 04/24/24 04/24/24 Range/Units 20:08 20:08 20:08 MCHC 30.7 L (31.0-37.0) g/dL Lymphocytes # 0.6 L (1.0-4.8) k/uL D-Dimer 0.90 H (<0.60) mg/L FEU Glucose 123 H (74-99) mg/dL Assessment and Plan Assessment: I have seen and evaluated the patient today. I Discussed the case with the resident and agree with the resident's findings I edited the assessment and plan as necessary as documented in the resident's note.
--- NOTE | 2024-04-25 01:03 | CT ---
EXAM: CT Angiography Chest With Intravenous Contrast CLINICAL HISTORY: ITS.REASON CT Reason: cp TECHNIQUE: Axial computed tomographic angiography images of the chest with intravenous contrast. CTDI is 30.5 mGy and DLP is 339.4 mGy-cm. This CT exam was performed using one or more of the following dose reduction techniques: automated exposure control, adjustment of the mA and/or kV according to patient size, and/or use of iterative reconstruction technique. MIP reconstructed images were created and reviewed. COMPARISON: 10/27/2042 FINDINGS: Pulmonary arteries: No filling defects. Aorta: No thoracic aortic aneurysm. Lungs: Previously seen left upper lobe mass, now measures 2.3 cm, previously 3.3 cm. Pleural space: No pneumothorax. No effusion. Heart: No cardiomegaly. No pericardial effusion. Bones/joints: No acute fracture or dislocation. Soft tissues: Unremarkable. Lymph nodes: No enlarged lymph nodes. IMPRESSION: Previously seen left upper lobe mass, now measures 2.3 cm, previously 3.3 cm. No pulmonary embolism
[2024-04-25] MEDS: SODIUM CHLORIDE 0.9% 1,000 ML IV SCH (03:11)
[2024-04-25] MEDS: LEVOTHYROXINE 25 MCG TAB PO SCH (05:24)
[2024-04-25 07:20] LABS: Mean Platelet Volume 7.6; Platelet Count 224 k/uL (150-450)
[2024-04-25] MEDS: PANTOPRAZOLE 40 MG TABLET PO SCH (08:28)
[2024-04-25] MEDS: lisinopriL 20 MG TAB PO SCH (08:28)
[2024-04-25] MEDS: ATORVASTATIN 80 MG TAB PO SCH (08:28)
[2024-04-25] MEDS: carvediloL 6.25 MG TAB PO SCH (08:28)
[2024-04-25] MEDS: ASPIRIN 81 MG PO SCH (08:28)
--- NOTE | 2024-04-25 08:45 | P.CRDCN ---
History of Present Illness History of present illness: HISTORY OF PRESENT ILLNESS: This is a 63-year-old male with a past medical history significant for hypertension, hyperlipidemia, diabetes, cardiomyopathy, nicotine dependence, and lung cancer with radiation treatment. Patient follows in the office with Dr. Steinberg. We have been asked to see the patient in consultation for elevated troponins. Patient examined at the bedside in the emergency room. Patient states yesterday at about 4 PM he began to have chest discomfort. He states he was sitting down watching TV and was not doing anything strenuous. He states this is the first time he has had chest pain of this severity. He states it felt like somebody was sitting on his chest. He states the pain would last for few minutes and then go away and then returned. He denied any radiation of the pain to his arm jaw, or back. He decided to call 911 and was brought to the hospital via EMS. He states he did receive aspirin and route to the hospital but at that time his chest pain had already subsided. He denies having any further episodes of chest pain since being in the hospital. Patient is a current cigarette smoker and states he smokes half a pack to 1 pack/day. Patiryan nt states he was diagnosed with lung cancer about 2 years ago. He follows with Dr. Trejo. He states that he was treated with radiation therapy. He also states he was on oral maintenance therapy which has since been stopped. Patient also follows with Dr. Mcgee. Patient states he has never underwent cardiac catheterization in the past. DIAGNOSTICS: - EKG reveals sinus mechanism with ST elevation in lead III and T wave inversions in lead I, V4V6. - Chest xray stable exam with scattered area of scarring involving the lung apices. No acute cardiopulmonary process. - Chest CTA: Previously seen left upper lobe mass now measuring 2.3 cm, previously 3.3 cm. No pulmonary embolism. - Laboratory data: WBC 8.2. Hemoglobin 13.8. Platelet count 237. D-dimer 0.90. Sodium 137. Potassium 4.4. BUN 19. Creatinine 0.99. Troponin 0.033. 3.640. 9.600. proBNP 233. TSH 2.640. - Most recent echocardiogram obtained in October 2023 revealed ejection fraction 35 to 40%, mild MR, mild TR - Cardiac catheterization history: Patient denies -Patient underwent Lexiscan stress test in December 2022 revealing ejection fraction 33% with stress-induced ischemia not excluded. REVIEW OF SYSTEMS: At the time of my exam: CONSTITUTIONAL: Denies fever or chills. HEENT: Denies blurred vision, vision changes, or eye pain. Denies hemoptysis CARDIOVASCULAR: Denies chest pain. Denies orthopnea. Denies PND. Denies palpitations RESPIRATORY: Denies shortness of breath. GASTROINTESTINAL: Denies abdominal pain. Denies nausea or vomiting. HEMATOLOGIC: Denies bleeding disorders. GENITOURINARY: Denies any blood in urine. SKIN: Denies pruitis. Denies rash. PHYSICAL EXAM: VITAL SIGNS: Reviewed. GENERAL: Well-developed in no acute distress. HEENT: Head is normocephalic. Pupils are equal, round. Sclerae anicteric. Mucous membranes of the mouth are moist. Neck supple. No JVD or thyromegaly LUNGS: Respirations even and unlabored. Lungs essentially clear to auscultation bilaterally. HEART: Regular rate and rhythm. S1 and S2 heard. ABDOMEN: Soft. Nondistended. Nontender. EXTREMITIES: Normal range of motion. No clubbing or cyanosis. Peripheral pulses intact. No lower extremity edema NEUROLOGIC: Awake and alert. Oriented x 3. ASSESSMENT: Non-STEMI Cardiomyopathy, previously 35 to 40%, suspect ischemic History of lung cancer with radiation treatment Left upper lobe mass, measuring 2.3 cm, previously 3.3 cm Congestive heart failure with reduced EF, currently euvolemic Hypertension Hyperlipidemia Diabetes Hypothyroidism Nicotine dependence PLAN: Obtain 2D echo to assess cardiac structure and function Continue IV heparin Resume home cardiac medications Continue aspirin 81 mg daily and atorvastatin 80 mg daily Add Farxiga 10 mg daily and Aldactone 12.5 mg daily Smoking cessation recommended. Patient to be referred to [place] quit line upon discharge. N.p.o. Patient to undergo cardiac catheterization today with Dr. Long Further recommendations pending patient course Nurse practitioner note has been reviewed by physician. Signing provider agrees with the documented findings, assessment, and plan of care documented by AUTOMATIC CHIEF as a scribe. Past Medical History Past Medical History: GERD/Reflux, Hyperlipidemia, Hypertension, Osteoarthritis (OA) Additional Past Medical History / Comment(s): INPT 10-20-22 FOR VTACH AND MASS ON LT LUNG History of Any Multi-Drug Resistant Organisms: None Reported Past Surgical History: Hernia Repair, Tonsillectomy Additional Past Surgical History / Comment(s): COLONOSCOPY , rt cataract 11/03/21,bronchoscopy Past Anesthesia/Blood Transfusion Reactions: No Reported Reaction Additional Past Anesthesia/Blood Transfusion Reaction / Comment(s): no hx blood transfusion Past Psychological History: No Psychological Hx Reported Smoking Status: Current every day smoker Past Alcohol Use History: None Reported Past Drug Use History: None Reported - Past Family History Mother Family Medical History: No Reported History Father Family Medical History: Renal Disease Medications and Allergies Home Medications Medication Instructions Recorded Confirmed Type lisinopriL [Zestril] 20 mg PO DAILY 12/20/22 04/25/24 History Levothyroxine Sodium [Synthroid] 25 mcg PO AC-BRKFST 11/14/23 04/25/24 History carvediloL [Coreg] 6.25 mg PO BID 11/14/23 04/25/24 History Furosemide [Lasix] 20 mg PO DAILY #30 tab 11/24/23 04/25/24 Rx Aspirin EC [Ecotrin Low Dose] 81 mg PO DAILY 04/25/24 04/25/24 History Atorvastatin [Lipitor] 40 mg PO HS 04/25/24 04/25/24 History Empagliflozin [Jardiance] 10 mg PO DAILY 04/25/24 04/25/24 History Spironolactone [Aldactone] 25 mg PO DAILY 04/25/24 04/25/24 History Allergies Allergy/AdvReac Type Severity Reaction Status Date / Time No Known Allergies Allergy Verified 04/25/24 08:40 Physical Exam Vitals: Vital Signs Temp Pulse Resp BP Pulse Ox 04/25/24 07:42 98.2 F 61 18 134/81 99 04/25/24 05:00 66 16 121/74 98 04/25/24 03:09 55 L 18 114/64 95 04/25/24 02:27 57 L 17 106/60 98 04/25/24 01:32 53 L 14 119/51 97 04/25/24 00:10 65 14 128/71 95 04/24/24 23:08 57 L 18 118/56 96 04/24/24 21:30 62 16 117/82 96 04/24/24 20:37 62 16 147/55 96 04/24/24 19:34 97.7 F 52 L 16 130/72 99 Intake and Output 10/09/1604/25/24 04/25/24 22:59 06:59 14:59 Intake Total 7.333 74.5 Balance 7.333 74.5 Intake: Intake, IV Titration 7.333 74.5 Amount Heparin Sod,Pork in 0.45% 7.333 74.5 NaCl 25,000 unit In 0.45 % NaCl 1 250ml.bag @ 11. 665 UNITS/KG/HR 10 mls/hr IV .Q24H [facility] Rx#: [id number] Other: Weight 85.729 kg Results 04/25/24 06:58 04/24/24 20:08 Cardiac Enzymes 04/24/24 04/24/24 04/25/24 Range/Units 20:08 20:08 00:25 AST 24 (17-59) U/L Troponin I 0.033 3.640 H* (0.000-0.034) ng/mL 04/25/24 Range/Units 02:30 AST (17-59) U/L Troponin I 9.600 H* (0.000-0.034) ng/mL Coagulation 04/24/24 04/25/24 04/25/24 Range/Units 20:08 00:25 06:58 PT 10.1 (10.0-12.5) sec APTT 25.8 37.2 H 31.2 H (22.0-30.0) sec CBC 04/24/24 04/25/24 Range/Units 20:08 06:58 WBC 8.2 (3.8-10.6) k/uL RBC 4.72 (4.30-5.90) m/uL Hgb 13.8 (13.0-17.5) gm/dL Hct 44.9 (39.0-53.0) % Plt Count 237 224 (150-450) k/uL Comprehensive Metabolic Panel 04/24/24 Range/Units 20:08 Sodium 137 (137-145) mmol/L Potassium 4.4 (3.5-5.1) mmol/L Chloride 102 (98-107) mmol/L Carbon Dioxide 26 (22-30) mmol/L BUN 19 (9-20) mg/dL Creatinine 0.99 (0.66-1.25) mg/dL Glucose 123 H (74-99) mg/dL Calcium 9.6 (8.4-10.2) mg/dL AST 24 (17-59) U/L ALT 15 (4-49) U/L Alkaline Phosphatase 98 (38-126) U/L Total Protein 7.7 (6.3-8.2) g/dL Albumin 4.5 (3.5-5.0) g/dL Current Medications Generic Name Dose Route Start Last Admin Trade Name Freq PRN Reason Stop Dose Admin Aspirin 81 mg 04/25/24 09:00 04/25/24 08:28 Aspirin 81 Mg PO 81 mg DAILY SAY Administration Atorvastatin Calcium 80 mg 04/25/24 09:00 04/25/24 08:28 Atorvastatin 80 Mg Tab PO 80 mg DAILY SAY Administration Carvedilol 6.25 mg 04/25/24 09:00 04/25/24 08:28 Carvedilol 6.25 Mg Tab PO 6.25 mg BID SAY Administration Heparin Sodium/Sodium Chloride 250 mls @ 10 mls/hr 04/24/24 22:30 04/25/24 07:40 25,000 unit/ Sodium Chloride IV 14.665 units/kg/hr .Q24H SAY 12.572 mls/hr Titration Protocol 11.665 UNITS/KG/HR Sodium Chloride 1,000 mls @ 100 mls/hr 04/25/24 03:15 04/25/24 03:11 Saline 0.9% IV 100 mls/hr .Q10H SAY Administration Levothyroxine Sodium 25 mcg 04/25/24 06:00 04/25/24 05:24 Levothyroxine 25 Mcg Tab PO 25 mcg DAILY@0600 SAY Administration Lisinopril 20 mg 04/25/24 09:00 04/25/24 08:28 Lisinopril 20 Mg Tab PO 20 mg DAILY SAY Administration Morphine Sulfate 4 mg 04/24/24 22:20 Morphine Sulfate 4 Mg/Ml Syringe IV Q4HR PRN Chest Pain Nitroglycerin 0.4 mg 04/24/24 22:20 Nitroglycerin Sl Tabs 0.4 Mg Tab SUBLINGUAL Q5M PRN Chest Pain Pantoprazole Sodium 40 mg 04/25/24 07:30 04/25/24 08:28 Pantoprazole 40 Mg Tablet PO 40 mg DAILY@0730 SAY Administration Intake and Output 04/24/24 04/25/24 04/25/24 22:59 06:59 14:59 Intake Total 7.333 74.5 Balance 7.333 74.5 Intake: Intake, IV Titration 7.333 74.5 Amount Heparin Sod,Pork in 0.45% 7.333 74.5 NaCl 25,000 unit In 0.45 % NaCl 1 250ml.bag @ 11. 665 UNITS/KG/HR 10 mls/hr IV .Q24H [facility] Rx#: [id number] Other: Weight 85.729 kg 04/25/24 06:58 04/24/24 20:08
[2024-04-25] MEDS ORDERED: ASPIRIN 325 MG TAB PO SCH (09:00)
[2024-04-25] MEDS ORDERED: METOPROLOL TARTRATE 25 MG TAB PO SCH (09:00)
[2024-04-25] MEDS ORDERED: ALPRAZolam 0.5 MG TAB PO PRN (09:44)
[2024-04-25] MEDS ORDERED: ALPRAZolam 0.25 MG TAB PO PRN (09:44)
[2024-04-25] MEDS ORDERED: NITROGLYCERIN SL TABS 0.4 MG TAB SUBLINGUAL PRN ×2 (09:44→22:35)
[2024-04-25 10:37] LABS: LDL Cholesterol,Calculated 136.8 mg/dL (0.0-131.0)
[2024-04-25] MEDS: ATORVASTATIN 80 MG TAB PO STA (10:41)
[2024-04-25] MEDS: ASPIRIN 325 MG TAB PO STA (10:41)
[2024-04-25] MEDS: SPIRONOLACTONE 25 MG TAB PO SCH (10:48)
[2024-04-25] MEDS: DAPAGLIFLOZIN PROPANEDIOL 10 MG TABLET PO SCH (10:49)
[2024-04-25] MEDS: SODIUM CHLORIDE 0.9% 1,000 ML in EMPTY BAG 1 BAG IV SCH (10:51)
--- NOTE | 2024-04-25 11:29 | CA ---
Transthoracic Echo Report Name: Daniel Delatorre Age: 63 Gender: M : 1960 Exam Date: 04/25/2024 08:44 Exam Location: [place] [facility] Ht (in): 76 Wt (lb): 189 Ordering Physician: Ector Bobo DO Attending/Referring Phys: [id number], Jihan Airline Manager Josefina Owens RDCS Procedure CPT: Indications: CP Cardiac Hx: Technical Quality: Fair Contrast 1: Definity Total Dose (mL): 2 Contrast 2: Total Dose (mL): MEASUREMENTS (Male / Female) Normal Values 2D ECHO LV Diastolic Diameter PLAX 6.3 cm 4.2 - 5.9 / 3.9 - 5.3 cm LV Systolic Diameter PLAX 5.9 cm IVS Diastolic Thickness 0.8 cm 0.6 - 1.0 / 0.6 - 0.9 cm LVPW Diastolic Thickness 1.1 cm 0.6 - 1.0 / 0.6 - 0.9 cm LV Relative Wall Thickness 0.3 LVOT Diameter 2.7 cm LV Diastolic Volume MOD BP 251.6 cm??? 67 - 155 / 56 - 104 cm??? LV Systolic Volume MOD BP 182.1 cm??? 22 - 58 / 19 - 49 cm??? LV Ejection Fraction MOD BP 27.6 % >= 55 % LV Cardiac Index MOD BP 2141.9 cm???/min???m??? LV Diastolic Volume MOD 4C 266.8 cm??? LV Systolic Volume MOD 4C 162.3 cm??? LV Ejection Fraction MOD 4C 39.2 % LV Cardiac Index MOD 4C 3221.6 cm???/min???m??? LV Diastolic Length 4C 9.7 cm LV Systolic Length 4C 8.2 cm LV Diastolic Volume MOD 2C 228.9 cm??? LV Systolic Volume MOD 2C 183.6 cm??? LV Ejection Fraction MOD 2C 19.8 % LV Cardiac Index MOD 2C 1396.3 cm???/min???m??? LV Diastolic Length 2C 9.3 cm LV Systolic Length 2C 9.2 cm LA Volume 133.3 cm??? 18 - 58 / 22 - 52 cm??? LA Volume Index 62.3 cm???/m??? 16 - 28 cm???/m??? Ascending Aorta Diameter 3.5 cm M-MODE LV Diastolic Diameter MM 7.2 cm 4.2 - 5.9 / 3.9 - 5.3 cm LV Systolic Diameter MM 5.4 cm LV Cardiac Index MM Teich 4007.1 cm???/min???m??? IVS Diastolic Thickness MM 1.1 cm 0.6 - 1.0 / 0.6 - 0.9 cm LVPW Diastolic Thickness MM 1.2 cm 0.6 - 1.0 / 0.6 - 0.9 cm LV Relative Wall Thickness MM 0.3 0.24 - 0.42 / 0.22 - 0.42 LV Mass Index MM 195.7 g/m??? 49 - 115 / 43 - 95 g/m??? DOPPLER AV Peak Velocity 102.2 cm/s AV Peak Gradient 4.2 mmHg AV Mean Velocity 76.8 cm/s AV Mean Gradient 2.5 mmHg AV Velocity Time Integral 22.7 cm LVOT Peak Velocity 86.5 cm/s LVOT Peak Gradient 3.0 mmHg LVOT Velocity Time Integral 18.2 cm LVOT Stroke Volume 106.3 cm??? LVOT Stroke Volume Index 49.2 ml/m??? LVOT Cardiac Index 3277.1 cm???/min???m??? AV Area Cont Eq vti 4.7 cm??? AV Area Cont Eq pk 5.0 cm??? MV Area PHT 3.9 cm??? Mitral E Point Velocity 46.7 cm/s Mitral A Point Velocity 86.6 cm/s Mitral E to A Ratio 0.5 MV Deceleration Time 194.0 ms TR Peak Velocity 219.8 cm/s TR Peak Gradient 19.3 mmHg Right Atrial Pressure 5.0 mmHg Pulmonary Artery Systolic Pressu 24.3 mmHg Right Ventricular Systolic Press 24.3 mmHg PV Peak Velocity 61.1 cm/s PV Peak Gradient 1.5 mmHg FINDINGS Left Ventricle Left ventricular ejection fraction is estimated at 20-25 %. Severely increased left ventricular mass. Mildly increased septal wall thickness. Mildly increased posterior wall thickness. Mildly decreased fractional shortening. Mildly increased left ventricular diastolic diameter. Severely increased left ventricular diastolic volume. Severely increased left ventricular systolic volume. Severely decreased left ventricular ejection fraction with regional variability. Anomalous left ventricular chord. Right Ventricle Mild right ventricular dilatation with normal function. Right ventricular systolic pressure within normal limits. Right Atrium Moderate right atrial dilatation. Left Atrium Severely increased left atrial volume. Mildly increased left atrial area. Mitral Valve Mitral valve thickened. No evidence for mitral valve prolapse. No mitral stenosis. Trace mitral regurgitation. Aortic Valve Trileaflet aortic valve. No aortic valve stenosis or regurgitation. Tricuspid Valve Structurally normal tricuspid valve. No tricuspid stenosis. Trace tricuspid regurgitation. Pulmonic Valve Pulmonic valve not well visualized. No pulmonic stenosis. No pulmonic regurgitation. Pericardium No pericardial effusion. Aorta Normal size aortic root and proximal ascending aorta. CONCLUSIONS Severe LV systolic dysfunction Previewed by: Dr. Myles Cameron MD (Electronically Signed) Final Date: 25 April 2024 11:28
[2024-04-25] MEDS: IV FLUID CONTINUATION 1,000 ML IV ONE (15:12)
[2024-04-25] MEDS: fentaNYL (PF) 50 MCG/ML 2 ML AMP IVP ONE (15:13)
[2024-04-25] MEDS: MIDAZOLAM 2 MG/2 ML VIAL IVP ONE (15:13)
[2024-04-25] MEDS: LIDOCAINE 1% INJ 10MG/ML (20 ML MDV) SQ ONE (15:14)
[2024-04-25] MEDS: VERAPAMIL SYRINGE (5 MG/10 ML) INTRAARTER ONE (15:15)
[2024-04-25] MEDS: HEPARIN SODIUM 1,000 UN/ML (10ML VL) IV ONE (15:17)
[2024-04-25] MEDS: TICAGRELOR 90 MG TAB PO ONE (15:24)
[2024-04-25] MEDS: NITROGLYCERIN 1000MCG/10ML SYRINGE INTRAARTER ONE (15:39)
[2024-04-25] MEDS: IOPAMIDOL-370 100ML BTL INJ ONE (15:51)
--- NOTE | 2024-04-25 16:29 | P.PN ---
Subjective Progress Note Date: 04/25/24 Patient is a 63-year-old male who has COPD and CAD presented to the ED with chest pain. He mentions the chest pain earlier started today while he was sitting on his porch smoking a cigarette. The pain is in the mid upper chest, does not radiate anywhere. He states the pain was dull, intermittent and a 3 out of 10 in severity. The pain felt more like he wanted to throw up but could not. He mentions the pain would worsen if he coughs, or would try to drink something and the pain would get better if he would lie down. He also complains of some shortness of breath and chronic coughing with white phlegm production. He also had chills. Typically patient does climb stairs and does yard work with no l imitations , denies any associated SOB or CP. he deneis any recent hospital stay or travel., denies any history of blood clots. 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 Denies fever, palpitations, abdominal pain, vomiting, diarrhea, blood in urine or stool, orthopnea, joint pain, muscle aches, lightheadedness. Labs show WBC 8.2, hemoglobin 13.8, platelet 237, sodium 137, potassium 4.4, magnesium 2.3, lipase 121 WNL, Coag: PT 10.1, INR 0.9, APTT 25.8 WNL ED documentation reviewed. Progress note 04/25/24 - Patient seen and examined at bedside. No events overnight. He has no current complaints of chest pain, palpitations or shortness of breath. Review of systems: Pertinent positives and negatives as discussed in HPI, a complete review of systems was performed and all other systems are negative. Physical examination: Vitals: reviewed General: non toxic, no distress, appears at stated age, normal weight Derm: no unusual rashes/lesions, warm Head: atraumatic, normocephalic, symmetric Eyes: EOM slow, anicteric sclera ENT: Nose and ears atraumatic Mouth: no lip lesion, mucus membranes moist Cardiovascular: S1S2 reg, no murmur, no edema Lungs: Diminished lung sounds bilaterally, no accessory muscle use Abdominal: soft, nontender to palpation, no guarding Ext: muscle strength 5 out of 5 in all 4 extremities grossly, no gross muscle atrophy, no contractures, Neuro: CN II-XI grossly intact Psych: Alert, oriented, appropriate affect Labs reviewed today: Troponin 18.2, triglyceride 107, cholesterol 195, HDL 36.8, APTT 45.8 Images reviewed today: Echocardiogram with severe LV systolic dysfunction, EF 20 to 25%. CTA chest no suspicion of pulmonary embolism. Assessment/Plan: Patient is a 63-year-old male with CAD and COPD presented to the ED for chest pain. Cases of the ED provider and admission accepted for evaluation of the chest pain. # Acute NSTEMI Sinus bradycardia First-degree AV block EKG: sinus mechanism with ST elevation in lead III and T wave inversions in lead I, V4V6. No ST elevations 2 contiguous lead. Continue aspirin 81 mg daily and atorvastatin 80 mg daily Lipids triglycerides 107, cholesterol 195, HDL 36 Troponin trended to 18.2, continue to trend till it peaks Echocardiogram with severe LV systolic dysfunction, EF 20 to 25%. CTA chest no suspicion of pulmonary embolism. Continue IV heparin drip, based on APTT, monitor for bleeding Discussed manage with cardiology, will need cardiac cath -Hold beta-kristyn for now -Telemetry monitoring #. History of CAD #. Hypertension Ischemic cardiomyopathy Heart failure with reduced ejection fraction, 20 to 25%, not in exacerbation Continue lisinopril 20 mg p.o. daily -Started on Farxiga 10 mg daily by cardiology and Aldactone 12.5 daily -Add beta-kristyn once heart rate is more stable #. History of GERD Continue Protonix 40 mg p.o. daily #. History of hypothyroidism Continue levothyroxine 100 g p.o. daily TSH and T4 ordered #. Hyperlipidemia Continue atorvastatin 80 mg p.o. daily F: IV NS E: Replete as required N: Heart healthy diet A: Bedrest, advance activity as tolerated on day 2 clinical pathway DVT prophylaxis: patient on heparin drip started in the ED for ACS protocol CODE STATUS: Full code Discussed with: Patient Anticipated discharge place: Home, pending clinical course I have seen and evaluated the patient today. Discussed with the resident and agree with the residents finding and plan as documented in the resident's note. Changes highlighted in blue font. Objective - Vital Signs Vital signs: Vital Signs Temp 98.2 F 04/25/24 07:42 Pulse 55 L 04/25/24 14:46 Resp 18 04/25/24 14:46 BP 117/75 04/25/24 14:46 Pulse Ox 100 04/25/24 14:46 FiO2 Intake & Output 04/24/24 04/25/24 04/25/24 18:59 06:59 18:59 Intake Total 7.333 674.5 Balance 7.333 674.5 Weight 85.729 kg Intake: IV 600 Intake, IV Titration 7.333 74.5 Amount Heparin Sod,Pork in 0.45% 7.333 74.5 NaCl 25,000 unit In 0.45 % NaCl 1 250ml.bag @ 11. 665 UNITS/KG/HR 10 mls/hr IV .Q24H [facility] Rx#: [id number] - Labs CBC & Chem 7: 04/25/24 06:58 04/24/24 20:08 Labs: Abnormal Lab Results - Last 24 Hours (Table) 04/24/24 04/24/24 04/24/24 Range/Units 20:08 20:08 20:08 MCHC 30.7 L (31.0-37.0) g/dL Lymphocytes # 0.6 L (1.0-4.8) k/uL APTT (22.0-30.0) sec D-Dimer 0.90 H (<0.60) mg/L FEU Glucose 123 H (74-99) mg/dL Troponin I (0.000-0.034) ng/mL LDL Cholesterol, Calc (0.0-131.0) mg/dL HDL Cholesterol (40.00-60.00) mg/dL 04/25/24 04/25/24 04/25/24 Range/Units 00:25 00:25 02:30 MCHC (31.0-37.0) g/dL Lymphocytes # (1.0-4.8) k/uL APTT 37.2 H (22.0-30.0) sec D-Dimer (<0.60) mg/L FEU Glucose (74-99) mg/dL Troponin I 3.640 H* 9.600 H* (0.000-0.034) ng/mL LDL Cholesterol, Calc (0.0-131.0) mg/dL HDL Cholesterol (40.00-60.00) mg/dL 04/25/24 04/25/24 04/25/24 Range/Units 06:58 06:58 12:52 MCHC (31.0-37.0) g/dL Lymphocytes # (1.0-4.8) k/uL APTT 31.2 H 45.8 H (22.0-30.0) sec D-Dimer (<0.60) mg/L FEU Glucose (74-99) mg/dL Troponin I (0.000-0.034) ng/mL LDL Cholesterol, Calc 136.8 H (0.0-131.0) mg/dL HDL Cholesterol 36.80 L (40.00-60.00) mg/dL 04/25/24 Range/Units 12:52 MCHC (31.0-37.0) g/dL Lymphocytes # (1.0-4.8) k/uL APTT (22.0-30.0) sec D-Dimer (<0.60) mg/L FEU Glucose (74-99) mg/dL Troponin I 18.200 H* (0.000-0.034) ng/mL LDL Cholesterol, Calc (0.0-131.0) mg/dL HDL Cholesterol (40.00-60.00) mg/dL
[2024-04-25] MEDS: TICAGRELOR 90 MG TAB PO SCH (20:33)
[2024-04-25] MEDS ORDERED: ZOLPIDEM 5 MG TAB PO PRN (22:35)
[2024-04-25] MEDS ORDERED: MAG HYDROX/AL HYDROX/SIMETH 30 ML CUP PO PRN (22:35)
[2024-04-25] MEDS ORDERED: RX INFO: IV CONTRAST WAS GIVEN 1 EACH MISC MISCELLANE PRN (22:35)
[2024-04-25] MEDS ORDERED: ATROPINE SULFATE 0.1 MG/ML 10ML SYRINGE IV PRN (22:35)
--- NOTE | 2024-04-25 22:35 | P.PRCINT ---
Percutaneous Coronary Int. - Percutaneous Coronary Intervention Percutaneous Coronary Intervention: PROCEDURES PERFORMED: Left heart catheterization, bilateral coronary angiography, ultrasound guided arterial access, PCI mid RCA with a 3.25 x 12mm Xience ELVEI, post dilated with a 3.5mm NC balloon, IVUS RCA INDICATION: NSTEMI CONSENT:I have discussed the risks, benefits and alternative therapies for the above-mentioned procedure and for both sedation/analgesia as well as necessary blood product administration, if indicated, as they pertain to this patient. The patient has indicated understanding and acceptance of the risks and procedures discussed. PROCEDURE: After the risks, benefits and alternatives of the above mentioned procedure explained in detail with the patient, informed consent was obtained. Patient was taken to the catheterization lab and prepped and draped in usual fashion. Ultrasound guidance was used to assess for arterial access. 1% lidocaine was used to anesthetize the right radial artery. A 6-Trinidadian sheath was placed in the right radial artery using modified Seldinger technique and ultrasound guidance. Left coronary angiography was performed with a 5-Trinidadian JL 3.5 catheter and right coronary angiography was performed with a 5-Trinidadian FR5 catheter in various views. A 5-Trinidadian FR5 catheter was inserted into the left ventricle and pressure measurements were obtained. The decision was made to perform PCI of the RCA. Heparin was given. A 6Fr AL 0.75 guide was used to engage the RCA. A 0.014 BMW wire was advanced into the distal RCA. Predilation was preformed with a 2.5mm balloon. Next IVUS showed reference vessel 3.25-3.5mm. A 3.5mm Xience ELVIE was placed in the mid RCA. Repeat IVUS showed some underexpansion of the distal edge of the stent and therefore a 3.5mm NC balloon was used to post dilated the distal edge of the stent. Repeat IVUS showed good stent apposition with no dissection. Final angiograms were performed. Preintervention there was 99% stenosis and GREGORIA 3 flow and post intervention there was 0% stenosis and GREGORIA 3 flow. The right radial sheath was removed and a TR band was placed with hemostasis achieved. The patient tolerated the procedure well. Patient was transported back to the post catheterization holding area in stable condition. Conscious Sedation: Patient was monitored under the direct supervision of myself for conscious sedation using Versed and fentanyl for a total duration of 42 minutes HEMODYNAMICS: Ao: 109/71 LV: 110/3, LVEDP 12 SELECTIVE CORONARY ARTERIOGRAPHY: LEFT MAIN: The left main is a large caliber vessel which trifurcates into the LAD, ramus and circumflex. There is no significant stenosis. LEFT ANTERIOR DESCENDING CORONARY ARTERY: LAD is a large caliber vessel which wraps around to the apex. There is diffuse 20-30% stenosis and a more focal mid LAD 50% stenosis. RAMUS INTERMEDIUS: The ramus is a moderate caliber vessel with a proximal 60- 70% stenosis LEFT CIRCUMFLEX CORONARY ARTERY: Left circumflex is a moderate caliber vessel which only gives off an OM1 which has 30% stenosis. RIGHT CORONARY ARTERY: The right coronary artery is a moderate to large caliber vessel which gives off a PDA and PLV branch and is the dominant vessel. There is diffuse 20-30% stenosis and a more focal mid RCA 99% stenosis. FINAL IMPRESSION: 1. CAD as described above with 99% mid RCA stenosis, 60-70% ramus stenosis and 50% mid LAD stenosis 2. Normal left sided filling pressures 3. S/p PCI mid RCA with a 3.25 x 12mm Xience ELVIE, post dilated with a 3.5mm NC balloon PLAN: 1. Aggressive risk factor modification per most recent ACC/AHA guidelines. 2. Continue dual antiplatelets with aspirin and Brillinta for 12 months 3. Consider iFR or functional stress testing of ramus lesion
[2024-04-26 06:59] LABS: Glucose,Whole Blood 90 mg/dL (70-110)
[2024-04-26] MEDS ORDERED: HEPARIN SODIUM,PORCINE 10,000 UNIT in SODIUM CHLORIDE 0.9% 1,000 ML IRRIGATION PRN (07:00)
[2024-04-26] MEDS ORDERED: HEPARIN SODIUM,PORCINE (1 ML) 2,500 UNIT in SODIUM CHLORIDE 0.9% 250 ML IRRIGATION PRN (07:00)
[2024-04-26 07:14] LABS: Mean Platelet Volume 7.3; Platelet Count 203 k/uL (150-450)
[2024-04-26 07:23] LABS: African American GFR (CKD) >90 (>60 ml/min/1.73 sqM); Non-African American GFR(CKD) 84 (>60 ml/min/1.73 sqM)
[2024-04-26 08:01] VITALS: RESP 20
--- NOTE | 2024-04-26 10:03 | P.PN ---
Subjective HISTORY OF PRESENT ILLNESS: This is a 63-year-old male with a past medical history significant for hypertension, hyperlipidemia, diabetes, cardiomyopathy, nicotine dependence, and lung cancer with radiation treatment. Patient follows in the office with Dr. Steinberg. We have been asked to see the patient in consultation for elevated troponins. Patient examined at the bedside in the emergency room. Patient states yesterday at about 4 PM he began to have chest discomfort. He states he was sitting down watching TV and was not doing anything strenuous. He states this is the first time he has had chest pain of this severity. He states it fe lt like somebody was sitting on his chest. He states the pain would last for few minutes and then go away and then returned. He denied any radiation of the pain to his arm jaw, or back. He decided to call 911 and was brought to the hospital via EMS. He states he did receive aspirin and route to the hospital but at that time his chest pain had already subsided. He denies having any further episodes of chest pain since being in the hospital. Patient is a current cigarette smoker and states he smokes half a pack to 1 pack/day. Patient states he was diagnosed with lung cancer about 2 years ago. He follows with Dr. Trejo. He states that he was treated with radiation therapy. He also states he was on oral maintenance therapy which has since been stopped. Patient also follows with Dr. Mcgee. Patient states he has never underwent cardiac catheterization in the past. DIAGNOSTICS: - EKG reveals sinus mechanism with ST elevation in lead III and T wave inversions in lead I, V4V6. - Chest xray stable exam with scattered area of scarring involving the lung apices. No acute cardiopulmonary process. - Chest CTA: Previously seen left upper lobe mass now measuring 2.3 cm, previou sly 3.3 cm. No pulmonary embolism. - Laboratory data: WBC 8.2. Hemoglobin 13.8. Platelet count 237. D-dimer 0.90. Sodium 137. Potassium 4.4. BUN 19. Creatinine 0.99. Troponin 0.033. 3.640. 9.600. proBNP 233. TSH 2.640. - Most recent echocardiogram obtained in October 2023 revealed ejection fraction 35 to 40%, mild MR, mild TR - Cardiac catheterization history: Patient denies -Patient underwent Lexiscan stress test in December 2022 revealing ejection fraction 33% with stress-induced ischemia not excluded. 04/26/2024 Patient is status post cardiac catheterization yesterday with Dr. Long revealing 99% mid RCA stenosis, 60 to 70% ramus intermedius, and 50% mid LAD stenosis. Patient underwent stenting of the mid RCA. Echocardiogram completed revealing ejection fraction 2024%. Patient examined this morning at the bedside. Patient denies any further episodes of chest pain or pressure. He denies shortness of breath. Vital signs are stable. Telemetry reveals sinus mechanism. Blood pressure 125/55. PHYSICAL EXAM: VITAL SIGNS: Reviewed. GENERAL: Well-developed in no acute distress. HEENT: Head is normocephalic. Pupils are equal, round. Sclerae anicteric. Mucous membranes of the mouth are moist. Neck supple. No JVD or thyromegaly LUNGS: Respirations even and unlabored. Lungs essentially clear to auscultation bilaterally. HEART: Regular rate and rhythm. S1 and S2 heard. ABDOMEN: Soft. Nondistended. Nontender. EXTREMITIES: Normal range of motion. No clubbing or cyanosis. Peripheral pulses intact. No lower extremity edema NEUROLOGIC: Awake and alert. Oriented x 3. ASSESSMENT: Non-STEMI, status post cardiac catheterization yesterday with Dr. Long revealing 99% mid RCA stenosis, 60 to 70% ramus intermedius, and 50% mid LAD stenosis; s/p PCI of mid RCA Cardiomyopathy, previously 35 to 40%, now 20 to 25% ischemic History of lung cancer with radiation treatment Left upper lobe mass, measuring 2.3 cm, previously 3.3 cm Congestive heart failure with reduced EF, currently euvolemic Hypertension Hyperlipidemia Diabetes Hypothyroidism Nicotine dependence PLAN: Continue dual antiplatelet with aspirin and Brilinta for 12 months Continue high intensity statin. LDL goal less than 70. Consider IFR or functional stress testing of ramus lesion if patient has further episodes of angina Smoking cessation recommended. Patient to be referred to [place] quit line upon discharge. Continue additional cardiac medications Recommend LifeVest at the time of discharge secondary to severe cardiomyopathy to prevent sudden cardiac Patient may be discharged home this afternoon from a cardiac standpoint Patient to follow-up postdischarge with Dr. Steinberg Nurse practitioner note has been reviewed by physician. Signing provider agrees with the documented findings, assessment, and plan of care documented by TANK WELDER as a scribe. Objective - Vital Signs Vital signs: Vital Signs Temp 97.8 F 04/26/24 08:00 Pulse 67 04/26/24 08:00 Resp 20 04/26/24 08:00 BP 125/55 04/26/24 08:00 Pulse Ox 97 04/26/24 08:00 FiO2 Intake & Output 04/25/24 04/26/24 04/26/24 18:59 06:59 18:59 Intake Total 674.5 10 Balance 674.5 10 Weight 85.729 kg 81 kg Intake: IV 600 10 Invasive Line 2 10 Intake, IV Titration 74.5 Amount Heparin Sod,Pork in 0.45% 74.5 NaCl 25,000 unit In 0.45 % NaCl 1 250ml.bag @ 11. 665 UNITS/KG/HR 10 mls/hr IV .Q24H [facility] Rx#: [id number] Other: Voiding Method Toilet Urinal # Voids 3 - Labs CBC & Chem 7: 04/26/24 06:43 04/26/24 06:43 Labs: Abnormal Lab Results - Last 24 Hours (Table) 04/25/24 04/25/24 04/25/24 Range/Units 06:58 12:52 12:52 APTT 45.8 H (22.0-30.0) sec Troponin I 18.200 H* (0.000-0.034) ng/mL LDL Cholesterol, Calc 136.8 H (0.0-131.0) mg/dL HDL Cholesterol 36.80 L (40.00-60.00) mg/dL 04/25/24 04/25/24 Range/Units 20:01 20:01 APTT 30.7 H (22.0-30.0) sec Troponin I 12.800 H* (0.000-0.034) ng/mL LDL Cholesterol, Calc (0.0-131.0) mg/dL HDL Cholesterol (40.00-60.00) mg/dL
[2024-04-26 11:31] VITALS: BMI 21.7
[2024-04-26] MEDS: METOPROLOL TARTRATE 12.5 MG TAB PO SCH (12:14)
--- NOTE | 2024-04-26 15:21 | P.DS ---
Providers Date of admission: 04/24/24 22:22 Expected date of discharge: 04/26/24 Attending physician: Juan Miguel Bennett MD Consults: 04/24/24 22:20 Consult Physician Urgent Consulting Provider: Natalya Griffin Consult Reason/Comments: cp Do you want consulting provider notified?: Yes 04/25/24 22:35 Consult Physician Routine Consulting Provider: [facility] Consult Reason/Comments: Post Interventional Patient Do you want consulting provider notified?: Already Contacted Primary care physician: [facility] Hospital Course: Discharge diagnoses; # Acute NSTEMI #Sinus bradycardia #First-degree AV block #. History of CAD #. Hypertension #Ischemic cardiomyopathy #Heart failure with reduced ejection fraction, 20 to 25%, not in exacerbation #. History of GERD #. History of hypothyroidism #. Hyperlipidemia Hospital course; Patient is a 63-year-old male who has COPD and CAD presented to the ED with chest pain. He mentions the chest pain earlier started today while he was sitting on his porch smoking a cigarette. The pain is in the mid upper chest, does not radiate anywhere. He states the pain was dull, intermittent and a 3 out of 10 in severity. The pain felt more like he wanted to throw up but could not. He mentions the pain would worsen if he coughs, or would try to drink something and the pain would get better if he would lie down. He also complains of some shortness of breath and chronic coughing with white phlegm production. He also had chills. Typically patient does climb stairs and does yard work with no guerra itations , denies any associated SOB or CP. he deneis any recent hospital stay or travel., denies any history of blood clots. 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 Denies fever, palpitations, abdominal pain, vomiting, diarrhea, blood in urine or stool, orthopnea, joint pain, muscle aches, lightheadedness. Labs show WBC 8.2, hemoglobin 13.8, platelet 237, sodium 137, potassium 4.4, magnesium 2.3, lipase 121 WNL, Coag: PT 10.1, INR 0.9, APTT 25.8 WNL During hospital stay patient was treated for acute NSTEMI, sinus bradycardia, first-degree AV block. EKG showed findings of sinus mechanism ST elevation in lead III and T wave inversions in lead I, V4 through V6. No ST elevations in 2 contiguous leads. His troponin peaked at 18.2. Echocardiogram showed evidence of severe LV systolic dysfunction, EF 20 to 25%. He was given IV heparin. Subsequently upon catheterization it was found 99% mid RCA stenosis, 60 to 70% ramus stenosis and 50% mid LAD stenosis. Patient underwent PCI of mid RCA. He was then started on dual antiplatelet therapy with aspirin and Brilinta. Patient is discharged to home in stable condition. Case was discussed with cardiology who recommended beginning Lopressor 12.5 mg twice daily on discharge. He will also start Brilinta 90 mg twice daily and Farxiga 10 mg daily. Spironolactone has been changed to 12.5 mg daily and Coreg has been discontinued. Patient has to follow-up with cardiology Dr. Wilson and PCP. Physical examination: Vitals: reviewed General: non toxic, no distress, appears at stated age, normal weight Derm: no unusual rashes/lesions, warm Head: atraumatic, normocephalic, symmetric Eyes: EOM slow, anicteric sclera ENT: Nose and ears atraumatic Mouth: no lip lesion, mucus membranes moist Cardiovascular: S1S2 reg, no murmur, no edema Lungs: Diminished lung sounds bilaterally, no accessory muscle use Abdominal: soft, nontender to palpation, no guarding Ext: muscle strength 5 out of 5 in all 4 extremities grossly, no gross muscle atrophy, no contractures, Neuro: CN II-XI grossly intact Psych: Alert, oriented, appropriate affect Dictation was produced using [employer] dictation software. please excuse any grammatical, word or spelling errors. I saw and evaluated the patient during the vazquez and critical portions of this encounter, and discussed the case in detail with the resident author of this note, I agree with the Assessment and Plan, and my changes, if any, are highlighted in blue. Patient Condition at Discharge: Stable Plan - Discharge Summary Discharge Rx Participant: No New Discharge Prescriptions: New Ticagrelor [Brilinta] 90 mg PO BID #60 tab Dapagliflozin Propanediol [Farxiga] 10 mg PO DAILY #30 tab Metoprolol Tartrate [Lopressor] 12.5 mg PO BID #60 tab Continue Levothyroxine Sodium [Synthroid] 25 mcg PO AC-BRKFST lisinopriL [Zestril] 20 mg PO DAILY Furosemide [Lasix] 20 mg PO DAILY #30 tab Atorvastatin [Lipitor] 40 mg PO HS Empagliflozin [Jardiance] 10 mg PO DAILY Aspirin EC [Ecotrin Low Dose] 81 mg PO DAILY Changed Spironolactone [Aldactone] 12.5 mg PO DAILY #0 Discontinued carvediloL [Coreg] 6.25 mg PO BID Discharge Medication List lisinopriL [Zestril] 20 mg PO DAILY 12/20/22 [History] Levothyroxine Sodium [Synthroid] 25 mcg PO AC-BRKFST 11/14/23 [History] Furosemide [Lasix] 20 mg PO DAILY #30 tab 11/24/23 [Rx] Aspirin EC [Ecotrin Low Dose] 81 mg PO DAILY 04/25/24 [History] Atorvastatin [Lipitor] 40 mg PO HS 04/25/24 [History] Empagliflozin [Jardiance] 10 mg PO DAILY 04/25/24 [History] Dapagliflozin Propanediol [Farxiga] 10 mg PO DAILY #30 tab 04/26/24 [Rx] Metoprolol Tartrate [Lopressor] 12.5 mg PO BID #60 tab 04/26/24 [Rx] Spironolactone [Aldactone] 12.5 mg PO DAILY #0 04/26/24 [Rx] Ticagrelor [Brilinta] 90 mg PO BID #60 tab 04/26/24 [Rx] Follow up Appointment(s)/Referral(s): Tano Steinberg MD [STAFF PHYSICIAN] - 05/02/24 9:30 am (with SARA SORIANO) None,Stated [REFERRING] - 1-2 days Patient Instructions/Handouts: Heart Attack (DC), After Radial Heart Catheterization (GEN) Discharge Disposition: HOME SELF-CARE
[2024-04-26 16:10] VITALS: BP 118/56; PULSE 53; TEMP 97.9
== END 2024-04-26 17:55 | disposition home or self-care (01) | DRG 322 ==
LOC: EC 19:32 → 6NMEDSUR 22:21 → OBSVTOIN 22:22 → 3SCARD 04-25 02:31
PROVIDERS: ADMIT Internal Medicine; ATTEND Internal Medicine
PROC: B240ZZ3 Ultrasonography of Single Coronary Artery, Intravascular (ICD-10-PCS; 2024-04-25)
PROC: 027034Z Dilation of Coronary Artery, One Artery with Drug-eluting Intraluminal Device, Percutaneous Approach (ICD-10-PCS; principal; 2024-04-25 11:30)
PROC: 4A023N7 Measurement of Cardiac Sampling and Pressure, Left Heart, Percutaneous Approach (ICD-10-PCS; 2024-04-25 11:30)
PROC: B2111ZZ Fluoroscopy of Multiple Coronary Arteries using Low Osmolar Contrast (ICD-10-PCS; 2024-04-25 11:30)
DX: I21.4 Non-ST elevation (NSTEMI) myocardial infarction (principal); I50.20 Unspecified systolic (congestive) heart failure; I25.5 Ischemic cardiomyopathy; I11.0 Hypertensive heart disease with heart failure; E03.9 Hypothyroidism, unspecified; E11.9 Type 2 diabetes mellitus without complications; J44.9 Chronic obstructive pulmonary disease, unspecified; I25.10 Atherosclerotic heart disease of native coronary artery without angina pectoris; I44.0 Atrioventricular block, first degree; F17.210 Nicotine dependence, cigarettes, uncomplicated; E78.5 Hyperlipidemia, unspecified; Z79.890 Hormone replacement therapy; Z79.84 Long term (current) use of oral hypoglycemic drugs; Z79.02 Long term (current) use of antithrombotics/antiplatelets; Z79.82 Long term (current) use of aspirin; Z79.899 Other long term (current) drug therapy; Z85.118 Personal history of other malignant neoplasm of bronchus and lung; Z92.3 Personal history of irradiation
CPT/HCPCS: 36415; 71046; 71275; 80053; 80061; 82565; 83690; 83735; 83880; 84443; 84484; 85025; 85049; 85379; 85610; 85730; 92978; 93005; 93306; 93458; 96361; 96374; 96375; 99291

== ENCOUNTER → 2024-04-29 | Outpatient (CLI) | payer OTHER ==
--- NOTE | 2024-04-29 13:30 | CT ---
EXAMINATION TYPE: CT chest wo con CT DLP: 412 mGycm, Automated exposure control for dose reduction was used. DATE OF EXAM: 04/29/2024 1:06 PM COMPARISON: CTA chest 04/24/24, PET CT 01/19/2024, 08/31/2023, 11/25/2022, CT chest 10/27/2022. CLINICAL INDICATION:Male, 63 years old with history of C34.32 lung ca; PHH, F/U LUNG CA TECHNIQUE: Multiple axial images were obtained through the chest without IV contrast. Lack of IV or o ral contrast limits evaluation of solid and hollow organ viscera. . Coronal and sagittal reformats re viewed. FINDINGS: LUNGS/ PLEURA: Biapical pleural-parenchymal scarring. No pleural effusion or pneumothorax. Marginal decrease in size of left upper lung mass measuring 2.0 x 1.4 cm, previously 2.1 x 2.0 cm (series 4, i mage 20). Adjacent superior 1.5 cm nodular density identified which is more prominent from prior PET/ CT (series 4, image 18). Stable right midlung calcified granuloma. No new suspicious pulmonary nodule s. AIRWAY: Patent and unremarkable.. HEART: Size within normal limits. No pericardial effusion. Moderate three-vessel coronary arterial ca lcifications. MEDIASTINUM: Stable left paratracheal and 9 mm short axis lymph node. Additional stable precarinal 1. 2 cm lymph node. Calcified right hilar lymph nodes redemonstrated. VASCULATURE: No aortic aneurysm. Mild atherosclerotic calcification of the aorta and its branches. MUSCULOSKELETAL: No acute osseous abnormalities. Similar sclerosis involving the left lateral fourth rib. No new osseous lesions. SOFT TISSUES/LYMPH NODES: Unremarkable. LOWER NECK: No significant findings. UPPER ABDOMEN: No significant findings. IMPRESSION: 1. Marginal decrease in size of left upper lobe pulmonary 2.1 x 1.4 cm mass, previously 2.1 x 2.0 cm. However there is adjacent nodular opacity which is more pronounced from prior PET/CT measuring up to 1.5 cm. May represent additional site of metastatic disease. Consider follow-up PET CT. 2. Stable mildly prominent mediastinal lymph nodes. 3. Sequelae of prior granulomatous disease. [facility], , 04/29/2024 1:28 PM
== END | disposition home or self-care (01) ==
LOC: RADCTMAIN 12:38
PROVIDERS: ATTEND Internal Medicine Hematology & Oncology
DX: C34.90 Malignant neoplasm of unspecified part of unspecified bronchus or lung
CPT/HCPCS: 71250

== ENCOUNTER → 2024-10-18 | Outpatient (CLI) | payer OTHER ==
--- NOTE | 2024-10-18 17:39 | CT ---
EXAMINATION TYPE: CT abdomen pelvis wo con DATE OF EXAM: 10/18/2024 4:32 PM COMPARISON: CT 04/24/2024 dating back to 10/20/2022, 01/19/2024 CLINICAL INDICATION: Male, 64 years old with history of K40.31 RIGHT INGUINAL HERNIA; inguinal hernia TECHNIQUE: Axial CT abdomen pelvis wo con;Sagittal and coronal reformats were created on a separate workstation. Contrast used: mL of , (none if empty) Oral contrast used: with Oral Contrast (none if empty) CT DLP: 1054.20 mGycm, Automated exposure control for dose reduction was used. FINDINGS: LOWER CHEST: Dilated lingula airway with mucous plugging similar to prior imaging. ABDOMEN LIVER: Unremarkable GALLBLADDER AND BILE DUCTS: Unremarkable. PANCREAS: Unremarkable. SPLEEN: Unremarkable. ADRENAL GLANDS: Unremarkable. Adenomatous hypertrophy changes to the adrenal glands similar to prior. KIDNEYS AND URETERS: No evidence of hydronephrosis or renal calculus. The ureters are unremarkable. PELVIS BLADDER: No evidence for wall thickening or mass given limitations of exam. REPRODUCTIVE: Unremarkable. ABDOMEN & PELVIS STOMACH AND BOWEL: No evidence of bowel obstruction. Loops of small bowel and the cecum into the righ t inguinal hernia. PERITONEUM/RETROPERITONEUM: No evidence of pneumoperitoneum or free fluid. VASCULATURE: Moderate atherosclerotic calcifications are present throughout the abdominal aorta and i ts branches. No evidence of aortic aneurysm. MUSCULOSKELETAL: No acute osseous abnormalities. Mild disc degeneration changes are present throughou t the thoracolumbar spine. LYMPH NODES: No gross evidence for lymphadenopathy. SOFT TISSUE/ABDOMINAL WALL: Right inguinal hernia containing loops of large and small bowel. No evide nce for obstruction. Left inguinal hernia containing loops of bowel. There is some fat present. IMPRESSION: 1. No acute abdominal process. 2. Large right inguinal hernia containing loops of small bowel and large bowel. No evidence for wall thickening or stranding angulation. No evidence for bowel obstruction. Findings similar to prior PET on 01/19/2024. 3. Left fat-containing inguinal hernia. 4. No evidence for lymphadenopathy within the abdomen. [facility], , 10/18/2024 5:37 PM
== END | disposition home or self-care (01) ==
LOC: RADCTMAIN 14:20
PROVIDERS: ATTEND Family Medicine
DX: K40.31 Unilateral inguinal hernia, with obstruction, without gangrene, recurrent (principal)
CPT/HCPCS: 74176

== ENCOUNTER 2024-10-22 14:26 | Day surgery (SDC) | payer OTHER ==
[2024-10-18 08:50] VITALS: BMI 22.6
[2024-10-22 16:03] LABS: Glucose,Whole Blood 80 mg/dL (70-110)
[2024-10-22 16:26] LABS: African American GFR (CKD) >90 (>60 ml/min/1.73 sqM); Anion Gap 8 mmol/L; Blood Urea Nitrogen 15 mg/dL (9-20); Calcium 10.1 mg/dL (8.4-10.2); Carbon Dioxide 31 mmol/L (22-30); Chloride 99 mmol/L (98-107); Glucose 89 mg/dL (74-99); Non-African American GFR(CKD) 81 (>60 ml/min/1.73 sqM); Potassium 5.1 mmol/L (3.5-5.1); Sodium 138 mmol/L (137-145)
[2024-10-22 16:33] LABS: Basophils % (A) 1 %; Eosinophils # (A) 0.6 k/uL (0-0.7); Eosinophils % (A) 11 %; HCT 47.4 % (39.0-53.0); HGB 15.3 gm/dL (13.0-17.5); Lymphocytes # (A) 1.2 k/uL (1.0-4.8); Lymphocytes % (A) 22 %; MCH 30.9 pg (25.0-35.0); MCHC 32.3 g/dL (31.0-37.0); MCV 95.5 fL (80.0-100.0); Mean Platelet Volume 6.9; Monocytes # (A) 0.5 k/uL (0-1.0); Monocytes % (A) 9 %; Neutrophils # (A) 2.8 k/uL (1.3-7.7); Neutrophils % (A) 53 %; Platelet Count 209 k/uL (150-450); RBC 4.96 m/uL (4.30-5.90); RDW 13.7 % (11.5-15.5); WBC 5.2 k/uL (3.8-10.6)
[2024-10-22] MEDS: IV FLUID CONTINUATION 1,000 ML IV ONE (17:44)
[2024-10-22] MEDS ORDERED: fentaNYL (PF) 50 MCG/ML 2 ML AMP ONE (17:45)
[2024-10-22] MEDS ORDERED: MIDAZOLAM 2 MG/2 ML VIAL ONE (17:45)
[2024-10-22] MEDS: HEPARIN SODIUM,PORCINE (1 ML) 2,500 UNIT in SODIUM CHLORIDE 0.9% 250 ML IRRIGATION ONE (18:15)
[2024-10-22] MEDS: ceFAZolin 1 GM in SODIUM CHLORIDE 0.9% IRRIG BTL 250 ML IRRIGATION PRN (18:17)
[2024-10-22] MEDS: LIDOCAINE 1% INJ 10MG/ML (20 ML MDV) SQ ONE (18:23)
[2024-10-22] MEDS: ROPIVACAINE 5 MG/ML 30 ML VIAL MISCELLANE ONE (18:23)
[2024-10-22] MEDS ORDERED: ACETAMINOPHEN TAB 325 MG TAB PO PRN (19:40)
--- NOTE | 2024-10-22 19:48 | P.EPPROC ---
- EP Procedure Note Electrophysiology Procedure Note: Diagnosis Chronic cardiomyopathy, ischemic Old ND Congestive heart failure class II In 2022 left ventricular ejection fraction 35% In 2023 2D echo showed a left ventricular ejection fraction of 35% RCA stenting in April 2024 Ejection fraction at that time was 20 to 25% In June ejection fraction had returned back to baseline of 35% Sick sinus syndrome On guideline directed medical treatment Final diagnosis Successful dual-chamber ICD implantation for primary prevention of sudden cardiac and management of sinus bradycardia Result: Dual chamber ICD implantation, Medtronic cobalt XT DR Atrial lead: Model #5076, 52 cm in length. P waves 4 mV pacing impedance 608 ohms and pacing threshold 0.625 V at 0.4 ms RV ICD lead: 69 35M, 62 cm in length ICD lead placed in the RV apex R waves 5.5 mV pacing impedance of 589 ohms and pacing threshold of 0.9 V at 0.4 ms Procedure details: Patient was brought to the EP lab in a fasting state. Written informed consent was obtained prior to the procedure. Options, pros and cons, benefits and risks and complications discussed with patient in detail prior to the procedure (shared decision making). Importance of continuing medical treatment emphasized. Alternatives discussed. Patient would like to proceed with dual-chamber ICD implant. Left upper extremity venogram performed. 15 mL IV dye injected in the left arm. Patent axillary/subclavian vein The left pectoral area was prepped and draped as a protocol. IV antibiotics administered 1% lidocaine was used for local anesthesia. A 4 cm incision was made parallel to the deltopectoral groove, about 1.5 cm medial to it. The incision was carried down to the level of the pectoralis muscle and the subfascial pocket was made. Hemostasis was assured. The axillary vein access was obtained. Appropriately sized into to see sheaths were placed. ICD lead implanted in the right ventricle and screwed in. ICD lead tested for threshold, sensing, impedances and tested with high output pacing for diaphragmatic stimulation Atrial lead placed in the right atrial appendage and tested for threshold, sensing, impedance, and tested with high output pacing. Phrenic nerve stimulation Lead secured to the underlying transverse muscle after removing sheaths . Poc ket irrigated with antibiotic solution Leads connected to the biventricular ICD generator. Wound closed in 3 layers and dressed per protocol Dual ICD interrogated and programmed. Appropriate pacing parameters, antitachycardia therapies with antitachycardia pacing cardioversion defibrillations programmed. Patient tolerated the procedure well without any acute complications. See scanned device report in EMR for lead details
[2024-10-22] MEDS: SODIUM CHLORIDE 0.9% 1,000 ML IV SCH ×2 (22:44→22:45)
[2024-10-22] MEDS: ACETAMINOPHEN IV (For NPO) 1,000 MG in EMPTY BAG 1 BAG IVPB ONE (22:44)
[2024-10-23] MEDS ORDERED: ALBUTEROL NEBULIZED 2.5 MG/3 ML INHALATION PRN (08:00)
--- NOTE | 2024-10-23 08:04 | XR ---
EXAMINATION TYPE: XR chest 2V DATE OF EXAM: 10/23/2024 6:53 AM COMPARISON: Chest radiographs from 04/24/2024 CLINICAL INDICATION: Male, 64 years old with history of Lead placement check; TECHNIQUE: XR chest 2V Frontal and lateral views of the chest. FINDINGS: Lungs/Pleura: Right midlung calcified granuloma unchanged from prior. There is no evidence of pleural effusion, focal consolidation, or pneumothorax. Pulmonary vascularity: Unremarkable. Heart/mediastinum: Cardiomediastinal silhouette is unremarkable. Two lead cardiac conduction device o verlying the left hemithorax with lead tips projecting over the right ventricle and right atrium. Musculoskeletal: No acute osseous pathology. IMPRESSION: No acute cardiopulmonary disease/process. [facility], , 10/23/2024 8:01 AM
[2024-10-23 08:25] VITALS: BP 127/70; PULSE 59; RESP 16; TEMP 98.2
[2024-10-23] MEDS: SPIRONOLACTONE 25 MG TAB PO SCH (08:39)
[2024-10-23] MEDS: TICAGRELOR 90 MG TAB PO SCH (08:39)
[2024-10-23] MEDS: lisinopriL 20 MG TAB PO SCH (08:39)
[2024-10-23] MEDS: EZETIMIBE 10 MG TAB PO SCH (08:39)
[2024-10-23] MEDS: ASPIRIN 81 MG PO SCH (08:39)
[2024-10-23] MEDS: DAPAGLIFLOZIN PROPANEDIOL 5 MG TABLET PO SCH (08:39)
[2024-10-23] MEDS: LEVOTHYROXINE 25 MCG TAB PO SCH (08:41)
[2024-10-23] MEDS: carvediloL 6.25 MG TAB PO SCH (10:13)
[2024-10-23] MEDS ORDERED: ATORVASTATIN 40 MG TAB PO SCH (21:00)
== END 2024-10-23 10:24 | disposition home or self-care (01) ==
LOC: CATHEP 14:26 → 6NMEDSUR 19:17 → CATHEP 10-23 10:24
PROVIDERS: ATTEND Internal Medicine Clinical Cardiac Electrophysiology
DX: I25.5 Ischemic cardiomyopathy (principal); I25.2 Old myocardial infarction; I50.9 Heart failure, unspecified; Z95.5 Presence of coronary angioplasty implant and graft; I49.5 Sick sinus syndrome; F17.200 Nicotine dependence, unspecified, uncomplicated; Z79.82 Long term (current) use of aspirin; Z79.890 Hormone replacement therapy; E78.5 Hyperlipidemia, unspecified; I10 Essential (primary) hypertension
CPT/HCPCS: 80048; 84443; 85025; 71046; 33249; C1769 ×2; C1892 ×2; J1644; J0690 ×2; J2003; J2795

== ENCOUNTER → 2024-12-04 | Outpatient (CLI) | payer OTHER ==
[2024-12-04 14:53] LABS: HCT 44.8 % (39.6-50.0); HGB 14.5 g/dL (13.0-17.0); MCHC 32.4 g/dL (32.0-37.0); MCV 95.9 FL (80.0-97.0); Mean Platelet Volume 9.7 FL (9.5-12.2); NRBC Per 100 WBC 0 X 10*3/uL (0.00-0.01); Platelet Count 230 X 10*3/uL (140-440); RBC 4.67 X 10*6/uL (4.40-5.60)
== END | disposition home or self-care (01) ==
LOC: LABPAT 09:16
PROVIDERS: ATTEND Surgery
DX: Z01.818 Encounter for other preprocedural examination (principal); K40.90 Unilateral inguinal hernia, without obstruction or gangrene, not specified as recurrent
CPT/HCPCS: 36415; 85027; 86850; 86900; 86901; 93005

== ENCOUNTER 2024-12-10 06:57 | Day surgery (SDC) | payer OTHER ==
[2024-12-04 16:57] VITALS: BMI 21.7
[~2024-12-10 06:57] MED LIST changes: +LIDOCAINE 1% (10MG/ML) FOR IV START INTRADERMA PRN; -REGADENOSON 0.4 MG/5 ML SYRINGE IV PRN
[2024-12-10] MEDS ORDERED: MIDAZOLAM 2 MG/2 ML VIAL IV PRN (07:00)
[2024-12-10] MEDS ORDERED: fentaNYL (PF) 50 MCG/ML 2 ML AMP IV PRN (07:00)
[2024-12-10 08:14] LABS: Glucose,Whole Blood 99 mg/dL (70-110)
[2024-12-10] MEDS: ONDANSETRON 4 MG/2 ML VIAL IVP ONE (08:26)
[2024-12-10] MEDS: ACETAMINOPHEN TAB 500 MG TAB PO PRN (08:26)
[2024-12-10] MEDS: DEXAMETHASONE SOD PHOSPHATE 4 MG/ML 1 ML VIAL IV ONE (08:26)
[2024-12-10] MEDS: HEPARIN SODIUM,PORCINE 5,000 UNIT/ML 1 ML VIAL SQ PRN (08:26)
[2024-12-10] MEDS: LACTATED RINGERS 1,000 ML IV SCH (08:27)
[2024-12-10] MEDS: IV FLUID CONTINUATION 1,000 ML IV ONE (08:42)
[2024-12-10] MEDS ORDERED: NEOSTIGMINE 1 MG/ML 10 ML VIAL ONE (09:03)
[2024-12-10] MEDS ORDERED: KETOROLAC 15 MG/ML 1 ML VIAL ONE (09:03)
[2024-12-10] MEDS ORDERED: LIDOCAINE 1% INJ 10MG/ML (20 ML MDV) ONE (09:03)
[2024-12-10] MEDS ORDERED: KETAMINE HCL IN 0.9 % NACL 50 MG/5 ML SYRINGE ONE (09:03)
[2024-12-10] MEDS ORDERED: GLYCOPYRROLATE 0.2 MG/ML 2 ML VIAL ONE (09:03)
[2024-12-10] MEDS ORDERED: PROPOFOL 10 MG/ML 20 ML VIAL IV ONE (09:03)
[2024-12-10] MEDS ORDERED: ROCURONIUM 10 MG/ML (5 ML VIAL) IV ONE (09:03)
[2024-12-10] MEDS ORDERED: fentaNYL (PF) 50 MCG/ML 2 ML AMP ONE (09:03)
[2024-12-10] MEDS ORDERED: MIDAZOLAM 2 MG/2 ML VIAL ONE (09:03)
[2024-12-10] MEDS: ceFAZolin 2 GM in DEXTROSE 5% IN WATER 50 ML IVPB PRN (09:09)
[2024-12-10] MEDS: LIDOCAINE 1%-EPI 1:100,000 20 ML VIAL SQ ONE (09:42)
--- NOTE | 2024-12-10 10:44 | P.OP ---
Date of Procedure: 12/10/24 Preoperative Diagnosis: large right inguinal hernia Postoperative Diagnosis: Same Procedure(s) Performed: Laparoscopic robot-assisted repair of right inguinal hernia Transversus abdominis plane block Anesthesia: MAC Surgeon: Salty Espinoza Estimated Blood Loss (ml): 5 Pathology: none sent Condition: stable Disposition: PACU Description of Procedure: The patient's placed on the operating table in the supine position. The patient received general anesthesia. The patient's abdomen was prepped and draped in usual sterile fashion. The skin was anesthetized 1% local Xylocaine at the incision sites. Using an 11 blade a skin incision was made at the umbilicus. The fascia was grasped with a Lyles and then the peritoneal cavity was entered with the Veress needle. Position of the Veress needle was confirmed with a positive drop test. After adequate insufflation a 5 mm trocar was placed into the peritoneal cavity. The Laparoscope was placed the peritoneal cavity. And a robotic 8 mm trocar was placed in the right lateral position and then another 8 mm robotic trochars placed in the left lateral position. The original 5 mm trocar was exchanged for a 8 mm trocar. A four quadrant transversus abdominal bloc was performed with 1% local xylocaine. The patient was placed in reverse Trendelenburg and then the patient was docked to the robot. Next the peritoneum over top of the hernia was incised and then using blunt and sharp dissection and electrocautery the hernia sac was d was transected at the neck of the hernia sac. The hernia sac was unable to be removed due to scarring. Vity. And then using the Pro senior outside sales representative mesh the hernia was repaired. The peritoneum was then sutured with 20V lock suture. The patient was then undocked the robot. The needle was withdrawn from the peritoneal cavity. The umbilical trocar site was closed with 0 Ethibond suture. The skin was closed interrupted 3-0 Monocryl suture. Dermabond dressing was applied. Patient was sent to recovery in stable condition.
[2024-12-10 10:59] VITALS: TEMP 97
[2024-12-10] MEDS: HYDROmorphone 0.5 MG/0.5 ML SYRINGE IVP PRN (11:23)
[2024-12-10 12:02] VITALS: BP 130/60; PULSE 59; RESP 16
== END 2024-12-10 13:10 | disposition home or self-care (01) ==
LOC: OR 06:57
PROVIDERS: ATTEND Surgery
DX: K40.90 Unilateral inguinal hernia, without obstruction or gangrene, not specified as recurrent (principal); I11.0 Hypertensive heart disease with heart failure; I50.9 Heart failure, unspecified; I25.10 Atherosclerotic heart disease of native coronary artery without angina pectoris; E78.5 Hyperlipidemia, unspecified; E03.9 Hypothyroidism, unspecified; E11.9 Type 2 diabetes mellitus without complications; M19.90 Unspecified osteoarthritis, unspecified site; K21.9 Gastro-esophageal reflux disease without esophagitis; Z85.118 Personal history of other malignant neoplasm of bronchus and lung; Z79.02 Long term (current) use of antithrombotics/antiplatelets; Z79.82 Long term (current) use of aspirin; Z79.890 Hormone replacement therapy; Z79.84 Long term (current) use of oral hypoglycemic drugs; Z79.899 Other long term (current) drug therapy; Z98.890 Other specified postprocedural states
CPT/HCPCS: 49650; S2900